=== PATIENT | female | born 1970 | race Caucasian/White ===

== ENCOUNTER → 2016-08-18 | Outpatient (CLI) | payer MEDICAID | LOC: OD 12:02 | PROVIDERS: ATTEND Physician Assistant Surgical | DX: R10.9 Unspecified abdominal pain (principal) | CPT/HCPCS: 74022 ==

== ENCOUNTER 2016-08-21 17:41 | Emergency (ER) | payer MEDICAID ==
[2016-08-21] MEDS ORDERED: PREDNISONE 20 MG TABLET PO ONE (18:48)
[2016-08-21] MEDS ORDERED: FAMOTIDINE 20 MG TABLET PO ONE (18:48)
[2016-08-21] MEDS ORDERED: DIPHENHYDRAMINE HCL 50 MG CAPSULE PO ONE (18:48)
--- NOTE | 2016-08-21 18:49 | ER Document Report ---
ED Skin Rash/Insect Bite/Abscs - General Chief Complaint: Insect Bite Stated Complaint: PAIN/SWELLING LEGS AND FEET Time Seen by Provider: 08/21/16 18:35 Mode of Arrival: Ambulatory Information source: Patient Notes: 46-year-old female presents to ED for pain and swelling to both feet and ankle since she walked through fire ants yesterday and they better all over both feet and ankles. TRAVEL OUTSIDE OF THE [place] IN LAST 30 DAYS: No - HPI Patient complains to provider of: Insect bite Onset: Yesterday Onset/Duration: Gradual, Worse Quality of pain: Achy Severity: Moderate Pain Level: 3 Skin Character: Rash, Swelling, Tenderness Quality of rash: Itchy, Painful Identify cause: Yes - ant bites Exacerbated by: Denies Relieved by: Denies Similar symptoms previously: Yes Recently seen / treated by doctor: No - Related Data Allergies/Adverse Reactions: ciprofloxacin [From Cipro] Allergy (Verified 09/13/14 10:53) ciprofloxacin HCl [From Cipro] Allergy (Verified 09/13/14 10:53) Past Medical History - General Information source: Patient - Social History Smoking Status: Never Smoker Frequency of alcohol use: None Drug Abuse: None Lives with: Family Family History: Arthritis, DM, Hyperlipidemia, Hypertension, Malignancy Patient has suicidal ideation: No Patient has homicidal ideation: No - Past Medical History Cardiac Medical History: Reports: Hx Hypercholesterolemia, Hx Hypertension, Hx Heart Murmur Pulmonary Medical History: Reports: None EENT Medical History: Reports: None Neurological Medical History: Reports: Other - Peripheral neuropathy Endocrine Medical History: Reports: Hx Diabetes Mellitus Type 2 Renal/ Medical History: Reports: Hx Ovarian Cysts Malignancy Medical History: Reports: Hx Cervical Cancer GI Medical History: Reports: Hx Gastroesophageal Reflux Disease, Hx Irritable Bowel, Hx Ulcer, Hx Endoscopy, Other - Bower's esophagitis Musculoskeltal Medical History: Reports Hx Arthritis, Reports Hx Musculoskeletal Deformity - Scoliosis to gentle disc 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, Reports Hx Musculoskeletal Trauma Skin Medical History: Reports None Psychiatric Medical History: Reports: Hx Anxiety, Hx Depression Traumatic Medical History: Reports: None Infectious Medical History: Reports: None Past Surgical History: Reports: Hx Dilation and Curettage, Hx Gynecologic Surgery - Ablation, Rt ovarian cyst removed left removed, coned biopsy for cervical c, Hx Hysterectomy, Hx Tubal Ligation - Immunizations Immunizations up to date: Yes Hx Diphtheria, Pertussis, Tetanus Vaccination: Yes Review of Systems - Review of Systems Constitutional: No symptoms reported EENT: No symptoms reported Cardiovascular: No symptoms reported Respiratory: No symptoms reported Gastrointestinal: No symptoms reported Genitourinary: No symptoms reported Female Genitourinary: No symptoms reported Musculoskeletal: No symptoms reported Skin: Rash, Other - Pain and swelling bilateral feet and ankles from ant bites yesterday Hematologic/Lymphatic: No symptoms reported Neurological/Psychological: No symptoms reported -: Yes All other systems reviewed and negative Physical Exam - Vital signs Vitals: Temp 97.7 F 08/21/16 17:45 Interpretation: Normal - General General appearance: Appears well, Alert - HEENT Head: Normocephalic, Atraumatic Eyes: Normal Pupils: PERRL - Respiratory Respiratory status: No respiratory distress Chest status: Nontender Breath sounds: Normal Chest palpation: Normal - Cardiovascular Rhythm: Regular Heart sounds: Normal auscultation Murmur: No - Abdominal Inspection: Normal Distension: No distension Bowel sounds: Normal Tenderness: Nontender Organomegaly: No organomegaly - Back Back: Normal, Nontender - Extremities General upper extremity: Normal inspection, Nontender, Normal color, Normal ROM , Normal temperature General lower extremity: Edema, Normal color, Normal ROM, Normal temperature, Normal weight bearing. No: Jorge's sign Ankle: Tender, Edema, Other - Multiple ant bites Foot: Tender, Edema, Other - Multiple and bites - Neurological Neuro grossly intact: Yes Cognition: Normal Orientation: AAOx4 Keyser Coma Scale Eye Opening: Spontaneous Katherine Coma Scale Verbal: Oriented Keyser Coma Scale Motor: Obeys Commands Katherine Coma Scale Total: 15 Speech: Normal Motor strength normal: LUE, RUE, LLE, RLE Sensory: Normal - Psychological Associated symptoms: Normal affect, Normal mood - Skin Skin Temperature: Warm Skin Moisture: Dry Skin Color: Normal Course - Vital Signs Vital signs: Temp Pulse Resp BP Pulse Ox 98.0 F 69 18 97/50 L 98 08/21/16 18:59 08/21/16 18:59 08/21/16 17:46 08/21/16 18:59 08/21/16 18:59 Discharge - Discharge Clinical Impression: insect bites to bilateral feet, Bilateral swelling of feet Condition: Stable Disposition: HOME, SELF-CARE Additional Instructions: Insect Bites You have been bitten by an insect. These bites can cause two types of swelling: an initial swelling due to insect saliva or injected poison, and a late reaction due to your body's allergic reaction. This initial local reaction may be uncomfortable but is not dangerous. Often there's an itchy "hive" at the bite location. This is treated with antihistamines, cold compresses, and resting the affected body part. The later reaction often develops about the second day. The entire area becomes very swollen, red, itchy, and tender. This is an allergic reaction. Your body is attacking the leftover insect saliva or venom. This type of allergy is unpleasant, but not dangerous. We treat this swelling with cortisone -type medicine. Sometimes we use antibiotics if we're worried about infection. Antihistamines help with the itch. If you develop a fever, chills, a red streak, or swollen glands in the area of the bite, infection may be starting. Return at once. STEROID MEDICATION: You have been given a medicine of the cortisone/steroid class. This medication is used to control inflammation or allergy. It is usually only given for a short period of time, until the acute process subsides. There are usually no side effects from short-term use of cortisone-like medications. Some persons feel an increased sense of well-being and are not sleepy at bedtime. Long-term use of cortisone medications is best avoided, unless required for a severe condition. If your condition does not remit, or relapses after the course of corticosteroid medication, you should consult your physician. ACID-SUPPRESSING MEDICATION: You have a prescription for medicine which reduces the stomach's secretion of acid. Examples include Zantac, Tagament, and Pepcid. These drugs are often used to allow healing of ulcers or esophagitis. They may be needed to prevent recurrence of ulcers in some patients, or to prevent damage from acid reflux in the esophagus. Take all medication as prescribed, even after the pain is gone. Regular antacids may be added as needed if you have symptoms while taking this medicine. These medications sometimes are prescribed for allergic reactions because they have anti-histaminic effects and relieve the rash and itching of the reaction. There are usually no side effects from this medication. But, in rare cases and particularly in the elderly, serious problems can occur. Contact your doctor if there is fever, rash, hallucinations, confusion, or unusual bruising. Contact your doctor at once if you develop lightheadedness, black or bloody stool, or bloody vomitus. USE OF DIPHENHYDRAMINE: The use of diphenhydramine (Benadryl) has been recommended to control allergic symptoms. The 25 mg strength is available over- the-counter, as well as the elixir. This antihistamine is used for many symptoms. It's useful for itching, watering eyes and nose, allergic swelling, hives, and insect stings. The medication can be repeated four times daily. Age Elixir (12.5 mg/tsp) 25 mg pill 2-3 yr 1/2 tsp 4-8 yr 1 tsp 9-14 yr 2 tsp one tab adult 1-2 tabs Antihistamines may cause drowsiness, especially with the first dose. Do not operate machinery or drive while under the effects of the medication. Do not combine the medication with alcohol, or with any other medication without talking to your doctor. FOLLOW-UP CARE: If you have been referred to a physician for follow-up care, call the physician s office for an appointment as you were instructed or within the next two days. If you experience worsening or a significant change in your symptoms, notify the physician immediately or return to the Emergency Department at any time for re-evaluation. Referrals: SHARON CHRIS DO [Primary Care Provider] - Follow up as needed
[2016-08-21 19:12] VITALS: BP 97/50
== END 2016-08-21 19:12 | disposition home or self-care (01) ==
LOC: ER 17:41
DX: T63.421A Toxic effect of venom of ants, accidental (unintentional), initial encounter (principal); M79.89 Other specified soft tissue disorders; I10 Essential (primary) hypertension; E11.9 Type 2 diabetes mellitus without complications; Z85.41 Personal history of malignant neoplasm of cervix uteri; Z88.1 Allergy status to other antibiotic agents
CPT/HCPCS: 99281; J3490 ×2; J7512

== ENCOUNTER 2016-09-15 12:03 | Emergency (ER) | payer MEDICAID ==
[2016-09-15 12:15] VITALS: BP 103/59
--- NOTE | 2016-09-15 12:27 | ER Document Report ---
HPI - HPI Patient complains to provider of: left ankle injury Onset: Yesterday Onset/Duration: Sudden Quality of pain: Throbbing Severity: Severe Pain Level: 5 Context: Patient states she tripped in her bedroom last night and rolled her left ankle. Patient is able to walk on foot but complains of pain with doing so. States she has had sprains and a fracture to that same ankle in the past. Associated Symptoms: None Exacerbated by: Movement, Walking Relieved by: Remaining still Similar symptoms previously: Yes Recently seen / treated by doctor: No - ROS ROS below otherwise negative: Yes Systems Reviewed and Negative: Yes All other systems reviewed and negative - CONSTITUTIONAL Constitutional: DENIES: Fever - EENT EENT: DENIES: Nasal Drainage-Purulent - NEURO Neurology: DENIES: Headache - CARDIOVASCULAR Cardiovascular: DENIES: Chest pain - RESPIRATORY Respiratory: DENIES: Trouble Breathing - GASTROINTESTINAL Gastrointestinal: DENIES: Abdominal Pain - REPRODUCTIVE Reproductive: DENIES: : - MUSCULOSKELETAL Musculoskeletal: REPORTS: Extremity pain - left ankle - DERM Skin Color: Normal Skin Problems: None Past Medical History - General Information source: Patient - Social History Smoking Status: Current Every Day Smoker Cigarette use (# per day): Yes Frequency of alcohol use: None Drug Abuse: None Lives with: Spouse/Significant other Family History: Arthritis, DM, Hyperlipidemia, Hypertension, Malignancy Patient has suicidal ideation: No Patient has homicidal ideation: No - Past Medical History Cardiac Medical History: Reports: Hx Hypercholesterolemia, Hx Hypertension, Hx Heart Murmur Endocrine Medical History: Reports: Hx Diabetes Mellitus Type 2 Renal/ Medical History: Reports: Hx Ovarian Cysts Malignancy Medical History: Reports: Hx Cervical Cancer GI Medical History: Reports: Hx Gastroesophageal Reflux Disease, Hx Irritable Bowel, Hx Ulcer, Hx Colonoscopy, Hx Endoscopy Musculoskeltal Medical History: Reports Hx Arthritis, Reports Hx Musculoskeletal Deformity - Scoliosis to gentle disc 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, Reports Hx Musculoskeletal Trauma Psychiatric Medical History: Reports: Hx Anxiety, Hx Bipolar Disorder, Hx Depression Past Surgical History: Reports: Hx Dilation and Curettage, Hx Gynecologic Surgery - Ablation, Rt ovarian cyst removed left removed, coned biopsy for cervical c, Hx Hysterectomy, Hx Tubal Ligation - Immunizations Immunizations up to date: Yes Hx Diphtheria, Pertussis, Tetanus Vaccination: Yes Vertical Provider Document - CONSTITUTIONAL Agree With Documented VS: Yes Exam Limitations: No Limitations General Appearance: WD/WN, No Apparent Distress - INFECTION CONTROL TRAVEL OUTSIDE OF THE [place] IN LAST 30 DAYS: No - HEENT HEENT: Atraumatic - RESPIRATORY Respiratory: Breath Sounds Normal, No Respiratory Distress O2 Sat by Pulse Oximetry: 94 - CARDIOVASCULAR Cardiovascular: Regular Rate, Regular Rhythm - GI/ABDOMEN Gastrointestinal: Abdomen Soft, Abdomen Non-Tender - MUSCULOSKELETAL/EXTREMETIES Musculoskeletal/Extremeties: Tender, Edema - mild edema to left lateral ankle, no bruising. N/V and sensation intact - NEURO Level of Consciousness: Awake, Alert, Appropriate - DERM Integumentary: Warm, Dry Course - Re-evaluation Re-evalutation: 09/15/16 13:10 X-rays negative and discussed with patient. - Vital Signs Vital signs: Temp Pulse Resp BP Pulse Ox 97.8 F 78 16 103/59 L 94 09/15/16 12:13 09/15/16 12:13 09/15/16 12:13 09/15/16 12:13 09/15/16 12:13 Procedures - Immobilization Left Ankle Pre-Proc Neuro Vasc Exam: Normal Immobilizer type: Ankle stirrup Performed by: PCT Post-Proc Neuro Vasc Exam: Normal Alignment checked and good: Yes Discharge - Discharge Clinical Impression: Ankle sprain Qualifiers: Encounter type: initial encounter Involved ligament of ankle: other ligament Laterality: left Qualified Code(s): S93.492A - Sprain of other ligament of left ankle, initial encounter Condition: Good Disposition: HOME, SELF-CARE Instructions: Ice Packs ([facility]), Sprained Ankle ([facility]) Additional Instructions: Ice and elevate ankle as much as possible Use crutches for several days to keep weight off ankle Tylenol or Motrin for discomfort Follow-up with your doctor if not better in 1 week Return as needed Prescriptions: Tramadol HCl 50 mg PO QID PRN #15 tablet PRN Reason: Referrals: SHARON CHRIS DO [Primary Care Provider] - Follow up as needed
[2016-09-15] MEDS ORDERED: HYDROCODONE/ACETAMINOPHEN 5-325 MG TABLET PO ONE (12:28)
--- NOTE | 2016-09-15 12:54 | RADIOLOGY REPORT (SQ) ---
EXAM DESCRIPTION: ANKLE LEFT COMPLETE COMPLETED DATE/TIME: 09/15/2016 12:40 pm REASON FOR STUDY: injury COMPARISON: None. NUMBER OF VIEWS: Three views. TECHNIQUE: AP, lateral, and oblique radiographic images acquired of the left ankle. LIMITATIONS: None. FINDINGS: MINERALIZATION: Normal. BONES: No acute fracture or dislocation. No worrisome bone lesions. JOINTS: No effusions. SOFT TISSUES: No soft tissue swelling. No foreign body. OTHER: No other significant finding. IMPRESSION: NEGATIVE STUDY OF THE LEFT ANKLE. NO RADIOGRAPHIC EVIDENCE OF ACUTE INJURY. TECHNICAL DOCUMENTATION: JOB ID: [id number] [employer]- All Rights Reserved
== END 2016-09-15 13:15 | disposition home or self-care (01) ==
LOC: ER 12:03
PROC: 2W3TX1Z Immobilization of Left Foot using Splint (ICD-10-PCS; principal; 2016-09-15)
DX: S93.492A Sprain of other ligament of left ankle, initial encounter (principal); X50.1XXA Overexertion from prolonged static or awkward postures, initial encounter; F17.210 Nicotine dependence, cigarettes, uncomplicated
CPT/HCPCS: 99283; 73610; 29515; L4350

== ENCOUNTER 2016-11-23 11:58 | Emergency (ER) | payer SELFPAY ==
[2016-11-23] MEDS ORDERED: ONDANSETRON 4 MG TAB.RAPDIS PO ONE (12:13)
--- NOTE | 2016-11-23 12:15 | ER Document Report ---
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 She previously had been treated for Bower's esophagus on on her last endoscopy this had reportedly healed. She also gives a history that suggests a problem with constipation. I have greeted and performed a rapid initial assessment of this patient. A comprehensive ED assessment and evaluation of the patient, analysis of test results and completion of the medical decision making process will be conducted by additional ED providers. TRAVEL OUTSIDE OF THE [place] IN LAST 30 DAYS: No - Related Data Allergies/Adverse Reactions: ciprofloxacin [From Cipro] Allergy (Verified 11/23/16 12:03) ciprofloxacin HCl [From Cipro] Allergy (Verified 11/23/16 12:03) Past Medical History - Past Medical History Cardiac Medical History: Reports: Hx Hypercholesterolemia, Hx Hypertension, Hx Heart Murmur Endocrine Medical History: Reports: Hx Diabetes Mellitus Type 1, Hx Diabetes Mellitus Type 2 Renal/ Medical History: Reports: Hx Ovarian Cysts. 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, Reports Hx Musculoskeletal Trauma Psychiatric Medical History: Reports: Hx Anxiety, Hx Bipolar Disorder, Hx Depression Past Surgical History: Reports: Hx Dilation and Curettage, Hx Gynecologic Surgery - Ablation, Rt ovarian cyst removed left removed, coned biopsy for cervical c, Hx Hysterectomy, Hx Tubal Ligation - Immunizations Immunizations up to date: Yes Hx Diphtheria, Pertussis, Tetanus Vaccination: Yes Physical Exam - Vital signs Vitals: Temp Pulse Resp BP Pulse Ox 98.7 F 71 16 141/86 H 96 11/23/16 12:01 11/23/16 12:01 11/23/16 12:01 11/23/16 12:01 11/23/16 12:01 Course - Vital Signs Vital signs: Temp Pulse Resp BP Pulse Ox 98.7 F 71 16 141/86 H 96 11/23/16 12:01 11/23/16 12:01 11/23/16 12:01 11/23/16 12:01 11/23/16 12:01
--- NOTE | 2016-11-23 13:08 | RADIOLOGY REPORT (SQ) ---
EXAM DESCRIPTION: ACUTE ABDOMEN SERIES COMPLETED DATE/TIME: 11/23/2016 12:55 pm REASON FOR STUDY: N,V abd pain COMPARISON: None. NUMBER OF VIEWS: Three views. TECHNIQUE: Frontal chest, supine abdomen and upright/decubitus abdomen radiographic images acquired. LIMITATIONS: None. FINDINGS: CHEST: Lungs clear of infiltrates. FREE AIR: None. No abnormal gas collections. BOWEL GAS PATTERN: Nonobstructive pattern. No dilated loops or air fluid levels. CALCIFICATIONS: No suspicious calcifications. HARDWARE: None in the abdomen. SOFT TISSUES: No gross mass or suggestion of organomegaly. BONES: No acute fracture. No worrisome bone lesions. OTHER: No other significant finding. IMPRESSION: NO RADIOGRAPHIC EVIDENCE FOR ACUTE ABDOMINAL DISEASE. TECHNICAL DOCUMENTATION: JOB ID: [id number] [employer]- All Rights Reserved
[2016-11-23] MEDS ORDERED: ASPIRIN 81 MG TABLET, CHEWABLE PO ONE (13:18)
--- NOTE | 2016-11-23 13:28 | ER Document Report ---
ED General - General Chief Complaint: Abdominal Pain Stated Complaint: ABDOMINAL PAIN Time Seen by Provider: 11/23/16 12:07 Mode of Arrival: Ambulatory Information source: Patient Notes: Patient reports a four-day history of nausea and vomiting. Patient states she vomited 5 times today. Patient states that around 6 this morning she developed some chest discomfort and epigastric abdominal pain. Patient also reports patient denies any blood in her vomit or stool.she had some difficulty breathing this morning. Patient complains of hot and cold chills. Patient denies any fever, cough, or urinary symptoms. Patient's daughter was recently sick with vomiting symptoms last week. TRAVEL OUTSIDE OF THE [place] IN LAST 30 DAYS: No - HPI Onset: Other - Vomiting 4 days. Onset/Duration: Gradual Quality of pain: Burning Pain Level: 4 Associated symptoms: Chest pain, Chills, Nausea, Vomiting, Shortness of breath. denies: Nonproductive cough, Productive cough, Diarrhea, Fever, Sore throat, Sweating Exacerbated by: Denies Relieved by: Denies Similar symptoms previously: No Recently seen / treated by doctor: No - Related Data Allergies/Adverse Reactions: ciprofloxacin [From Cipro] Allergy (Verified 11/23/16 13:26) ciprofloxacin HCl [From Cipro] Allergy (Verified 11/23/16 13:26) Past Medical History - General Information source: Patient - Social History Smoking Status: Current Every Day Smoker Chew tobacco use (# tins/day): - 15 Frequency of alcohol use: None Drug Abuse: None Occupation: None Lives with: Family Family History: Arthritis, DM, Hyperlipidemia, Hypertension, Malignancy - Past Medical History Cardiac Medical History: Reports: Hx Hypercholesterolemia, Hx Hypertension, Hx Heart Murmur Endocrine Medical History: Reports: Hx Diabetes Mellitus Type 1, Hx Diabetes Mellitus Type 2 Renal/ Medical History: Reports: Hx Ovarian Cysts. 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 denies: Fever, Recent illness EENT: No symptoms reported Cardiovascular: Chest pain Respiratory: Short of breath - This morning, now resolved. denies: Cough Gastrointestinal: Abdominal pain, Nausea, Vomiting, Poor appetite. denies: Diarrhea, Constipation Genitourinary: No symptoms reported. denies: Dysuria, Flank pain Female Genitourinary: No symptoms reported Musculoskeletal: No symptoms reported. denies: Back pain Skin: No symptoms reported Hematologic/Lymphatic: No symptoms reported Neurological/Psychological: No symptoms reported Physical Exam - Vital signs Vitals: Temp Pulse Resp BP Pulse Ox 98.7 F 71 16 141/86 H 96 11/23/16 12:01 11/23/16 12:01 11/23/16 12:01 11/23/16 12:01 11/23/16 12:01 - General General appearance: Appears well, Alert In distress: None - HEENT Head: Normocephalic, Atraumatic Eyes: Normal Ears: Normal External canal: Normal Tympanic membrane: Normal Nasal: Normal Mouth/Lips: Normal Mucous membranes: Normal Pharynx: Normal Neck: Normal, Supple. No: Lymphadenopathy - Respiratory Respiratory status: No respiratory distress Chest status: Nontender Breath sounds: Normal. No: Rales, Rhonchi, Stridor, Wheezing Chest palpation: Normal - Cardiovascular Rhythm: Regular Heart sounds: S1 appreciated, S2 appreciated - Abdominal Inspection: Normal Distension: No distension Bowel sounds: Normal Tenderness: Tender - epig, right lower abd tenderness - Back Back: Normal, Nontender. No: CVA tenderness - Extremities General upper extremity: Normal inspection, Normal ROM General lower extremity: Normal inspection, Normal ROM - Neurological Neuro grossly intact: Yes Cognition: Normal [place] Coma Scale Eye Opening: Spontaneous [place] Coma Scale Verbal: Oriented [place] Coma Scale Motor: Obeys Commands [place] Coma Scale Total: 15 - Psychological Associated symptoms: Normal affect, Normal mood - Skin Skin Temperature: Warm Skin Moisture: Dry Skin Color: Normal Course - Re-evaluation Re-evalutation: 11/23/16 17:00 Patient states that GI cocktail resolved her chest pain. Patient states that initially it resolved her abdominal pain but her abdominal pain started to come back. Patient's abdomen soft, no guarding. Patient has already been to ultrasound and is awaiting results. Patient with mild epigastric tenderness at this time. Consulted with Dr. Carter regarding patient presentation, exam and diagnostic test results. EKG reviewed. Agrees with plan of care 11/23/16 18:30 Repeat EKG reviewed per Dr. Carter. patient presently without any chest pain or dyspnea symptoms. Abdomen is soft without guarding. Patient has not vomited during ER stay. Discussed worsening signs or symptoms that patient should return immediately for. Patient verbalized understanding and agrees with plan of care. The patient has atypical chest pain as the patient's chest pain is not suggestive of pulmonary embolus, cardiac ischemia, aortic dissection , or other serious etiology. Given the extremely low risk of these diagnoses for the test in evaluation for these possibilities does not appear to be indicated at this time. Patient has been instructed to return if the symptoms worsen or change in any way. Patient presents with abdominal pain without signs of peritonitis or other life-threatening or serious etiology. Patient appears stable for discharge and has been instructed to return immediately if the symptoms worsen in any way, or in 8-12 hours if not improved for reevaluation. The patient has been instructed to return if the symptoms worsen or change in any way. - Vital Signs Vital signs: Temp Pulse Resp BP Pulse Ox 98.7 F 71 15 134/73 H 100 11/23/16 12:01 11/23/16 12:01 11/23/16 18:21 11/23/16 18:21 11/23/16 18:21 - Laboratory Result Diagrams: 11/23/16 13:30 11/23/16 13:30 Laboratory results interpreted by me: 11/23/16 11/23/16 11/23/16 13:21 13:30 13:30 Seg Neutrophils % 81.0 H Glucose 131 H Direct Bilirubin 0.5 H Creatine Kinase 27 L Urine Ketones 80 H Urine Blood SMALL H Urine Bilirubin MODERATE H Labs- Entire Visit 11/23/16 11/23/16 11/23/16 13:21 13:30 13:30 WBC 7.6 RBC 5.07 Hgb 15.5 Hct 44.3 MCV 87 MCH 30.5 MCHC 34.9 RDW 13.5 Plt Count 189 Seg Neutrophils % 81.0 H Lymphocytes % 14.7 Monocytes % 3.4 Eosinophils % 0.3 Basophils % 0.6 Absolute Neutrophils 6.2 Absolute Lymphocytes 1.1 Absolute Monocytes 0.3 Absolute Eosinophils 0.0 Absolute Basophils 0.0 Sodium 141.5 Potassium 3.9 Chloride 106 Carbon Dioxide 23 Anion Gap 13 BUN 13 Creatinine 0.97 Est GFR ( Amer) > 60 Est GFR (Non-Af Amer) > 60 Glucose 131 H Calcium 9.6 Total Bilirubin 0.9 Direct Bilirubin 0.5 H Indirect Bilirubin Not Reportable Neonat Total Bilirubin Not Reportable AST 18 ALT 32 Alkaline Phosphatase 97 Creatine Kinase 27 L CK-MB (CK-2) Troponin I Total Protein 7.8 Albumin 4.4 Lipase 83.7 Urine Color YELLOW Urine Appearance CLEAR Urine pH 5.0 Ur Specific [place] 1.032 Urine Protein NEGATIVE Urine Glucose (UA) NEGATIVE Urine Ketones 80 H Urine Blood SMALL H Urine Nitrite NEGATIVE Urine Bilirubin MODERATE H Urine Urobilinogen NEGATIVE Ur Leukocyte Esterase NEGATIVE Urine WBC (Auto) 1 Urine RBC (Auto) 4 Squamous Epi Cells Auto 1 Urine Mucus (Auto) RARE Urine Ascorbic Acid NEGATIVE 11/23/16 11/23/16 13:30 15:07 WBC RBC Hgb Hct MCV MCH MCHC RDW Plt Count Seg Neutrophils % Lymphocytes % Monocytes % Eosinophils % Basophils % Absolute Neutrophils Absolute Lymphocytes Absolute Monocytes Absolute Eosinophils Absolute Basophils Sodium Potassium Chloride Carbon Dioxide Anion Gap BUN Creatinine Est GFR ( Amer) Est GFR (Non-Af Amer) Glucose Calcium Total Bilirubin Direct Bilirubin Indirect Bilirubin Neonat Total Bilirubin AST ALT Alkaline Phosphatase Creatine Kinase CK-MB (CK-2) 0.45 Troponin I < 0.012 < 0.012 Total Protein Albumin Lipase Urine Color Urine Appearance Urine pH Ur Specific [place] Urine Protein Urine Glucose (UA) Urine Ketones Urine Blood Urine Nitrite Urine Bilirubin Urine Urobilinogen Ur Leukocyte Esterase Urine WBC (Auto) Urine RBC (Auto) Squamous Epi Cells Auto Urine Mucus (Auto) Urine Ascorbic Acid 11/23/16 18:57 - Diagnostic Test Radiology reviewed: Reports reviewed Discharge - Discharge Clinical Impression: Chest pain Qualifiers: Chest pain type: unspecified Qualified Code(s): R07.9 - Chest pain, unspecified HTN (hypertension) Qualifiers: Hypertension type: unspecified Qualified Code(s): I10 - Essential (primary) hypertension Nausea & vomiting Qualifiers: Vomiting type: unspecified Vomiting Intractability: non-intractable Qualified Code(s): R11.2 - Nausea with vomiting, unspecified Abdominal pain Qualifiers: Abdominal location: unspecified location Qualified Code(s): R10.9 - Unspecified abdominal pain Condition: Stable Disposition: HOME, SELF-CARE Instructions: Abdominal Pain ([facility]), Antinausea Medication ([facility]), Vomiting ([facility]) , Intravenous (IV) Fluids ([facility]), Chest Pain of Unclear Cause ([facility]) Additional Instructions: Return immediately for any new or worsening symptoms Followup with your primary care provider, call tomorrow to make a followup appointment Follow-up with your primary doctor tomorrow for recheck Follow-up with a hospital television rental clerk for further evaluation. Call tomorrow for an appointment Prescriptions: Omeprazole Magnesium [Prilosec Otc] 20 mg PO DAILY #15 tablet. Ondansetron HCl [Zofran 4 mg Tablet] 1 - 2 tab PO Q6 PRN #15 tablet PRN Reason: Sucralfate [Carafate 1 gm Tablet] 1 gm PO ACHS #40 tablet Forms: Elevated Blood Pressure Referrals: SHARON CHRIS DO [Primary Care Provider] - Follow up tomorrow ELISSA VIDAL MD [ACTIVE STAFF] - Follow up tomorrow
[2016-11-23] MEDS ORDERED: MAG HYDROX/AL HYDROX/SIMETH SUSP 30 ML UDCUP PO ONE (13:37)
[2016-11-23] MEDS ORDERED: LIDOCAINE 2% VISCOUS SOLN 20 ML UDCUP PO ONE (13:37)
[2016-11-23 13:46] LABS: ABSOLUTE LYMPHOCYTES (AUTO) 1.1 10^3/uL (0.5-4.7); ABSOLUTE MONOCYTES (AUTO) 0.3 10^3/uL (0.1-1.4); ABSOLUTE NEUT (AUTO) 6.2 10^3/uL (1.7-8.2); BASOPHILS % (AUTO) 0.6 % (0-2); EOSINOPHILS % (AUTO) 0.3 % (0-6); HEMATOCRIT 44.3 % (36.0-47.0); HEMOGLOBIN 15.5 g/dL (12.0-15.5); HGB HCT DIFFERENCE 2.2; LYMPHOCYTES % (AUTO) 14.7 % (13-45); MEAN CORPUSCULAR HEMOGLOBIN 30.5 pg (27.0-33.4); MEAN CORPUSCULAR HGB CONC 34.9 g/dL (32.0-36.0); MEAN CORPUSCULAR VOLUME 87 fl (80-97); MONOCYTES % (AUTO) 3.4 % (3-13); RED BLOOD COUNT 5.07 10^6/uL (3.72-5.28); RED CELL DISTRIBUTION WIDTH 13.5 % (11.5-14.0); WHITE BLOOD COUNT 7.6 10^3/uL (4.0-10.5)
[2016-11-23 13:50] LABS: APPEARANCE,URINE CLEAR; BILIRUBIN,URINE MODERATE (NEGATIVE); GLUCOSE, URINE NEGATIVE (NEGATIVE); KETONES,URINE 80 mg/dL (NEGATIVE); LEUKOCYTE ESTERASE,URINE NEGATIVE (NEGATIVE); NITRITE,URINE NEGATIVE (NEGATIVE); PROTEIN,URINE NEGATIVE (NEGATIVE); URINE SPECIFIC GRAVITY 1.032; UROBILINOGEN,URINE NEGATIVE mg/dL (<2.0)
[2016-11-23] MEDS ORDERED: NORMAL SALINE 1000 ML 1,000 ML IV ONE (13:52)
[2016-11-23 14:04] LABS: ALANINE AMINOTRANSFERASE 32 U/L (9-52); ALBUMIN 4.4 g/dL (3.5-5.0); ALKALINE PHOSPHATASE 97 U/L (38-126); ANION GAP 13 (5-19); ASPARTATE AMINO TRANSFERASE 18 U/L (14-36); BILIRUBIN,DIRECT 0.5 mg/dL (0.0-0.4); BILIRUBIN,TOTAL 0.9 mg/dL (0.2-1.3); BLOOD UREA NITROGEN 13 mg/dL (7-20); CALCIUM 9.6 mg/dL (8.4-10.2); CARBON DIOXIDE 23 mmol/L (22-30); CHLORIDE 106 mmol/L (98-107); CREATINE KINASE 27 U/L (30-135); CREATININE RESULT 0.97 mg/dL (0.52-1.25); GLUCOSE 131 mg/dL (75-110); LIPASE 83.7 U/L (23-300); POTASSIUM 3.9 mmol/L (3.6-5.0); SODIUM 141.5 mmol/L (137-145); TOTAL PROTEIN 7.8 g/dL (6.3-8.2)
[2016-11-23 14:16] LABS: CREATINE KINASE MB 0.45 ng/mL (<4.55)
[2016-11-23 14:17] LABS: TROPONIN I < 0.012 ng/mL
[2016-11-23] MEDS ORDERED: MORPHINE SULFATE 10 MG/ML INJ IV ONE (16:53)
--- NOTE | 2016-11-23 16:56 | RADIOLOGY REPORT (SQ) ---
EXAM DESCRIPTION: U/S ABDOMEN LIMITED W/O DOP COMPLETED DATE/TIME: 11/23/2016 4:38 pm REASON FOR STUDY: upper abd pain, n/v COMPARISON: None. TECHNIQUE: Dynamic and static grayscale images acquired of the abdomen and recorded on PACS. Additio nal selected color Doppler and spectral images recorded. LIMITATIONS: None. FINDINGS: PANCREAS: No masses. Visualized pancreatic duct normal caliber. LIVER: No masses. Echotexture normal. LIVER VASCULATURE: Normal directional flow of the main portal vein and hepatic veins. GALLBLADDER: No stones. Normal wall thickness. No pericholecystic fluid. ULTRASOUND-DETECTED MITCHELL'S SIGN: Negative. INTRAHEPATIC DUCTS AND COMMON DUCT: CBD and intrahepatic ducts normal caliber. No filling defects. INFERIOR VENA CAVA: Normal flow. AORTA: No aneurysm. RIGHT KIDNEY: Normal size. Normal echogenicity. No solid or suspicious masses. No hydronephrosis. No calcifications. PERITONEAL AND RIGHT PLEURAL SPACE: No ascites or effusions. OTHER: No other significant findings. IMPRESSION: NORMAL RIGHT UPPER QUADRANT ULTRASOUND. TECHNICAL DOCUMENTATION: JOB ID: [id number] [employer]- All Rights Reserved
[2016-11-23 18:49] VITALS: BP 134/73
--- NOTE | 2016-11-23 19:20 | EKG REPORT ---
SEVERITY:- ABNORMAL ECG - SINUS RHYTHM ABNRM R PROG, CONSIDER ASMI OR LEAD PLACEMENT : Confirmed by: Roman Huang MD 23-Nov-2016 19:19:19
--- NOTE | 2016-11-23 19:21 | EKG REPORT ---
SEVERITY:- ABNORMAL ECG - SINUS RHYTHM ABNRM R PROG, CONSIDER ASMI OR LEAD PLACEMENT BORDERLINE T ABNORMALITIES, INFERIOR LEADS : Confirmed by: Roman Huang MD 23-Nov-2016 19:19:40
== END 2016-11-23 18:49 | disposition home or self-care (01) ==
LOC: ER 11:58
DX: R07.9 Chest pain, unspecified (principal); R11.2 Nausea with vomiting, unspecified; I10 Essential (primary) hypertension; R10.13 Epigastric pain; F17.200 Nicotine dependence, unspecified, uncomplicated
CPT/HCPCS: 93005; 99285; 96374; 36415; 82553; 82550; 83690; 85025; 80053; 81001; 84484; 74022; 76705; 93010; S0119; J3490; J2270; J7030

== ENCOUNTER 2017-01-27 15:29 | Emergency (ER) | payer SELFPAY ==
[2017-01-27 15:43] VITALS: BP 121/74
--- NOTE | 2017-01-27 16:22 | ER Document Report ---
ED General - General Chief Complaint: Breathing Difficulty Stated Complaint: DIFFICULTY BREATHING, COUGH, EAR PAIN Time Seen by Provider: 01/27/17 16:17 Mode of Arrival: Ambulatory Information source: Patient Notes: Patient states that she has had cough cold and congestion for approximately 2 weeks. She has had some vomiting from the mucus drainage. No diarrhea. No rashes. No known fevers. She is a smoker. She states she does have insulin- dependent diabetes and is been checking her blood sugars approximately 140 this morning. No problems with urination. She states she has generalized body aches. They do radiate throughout her body. They are worse with movement and better with rest. They are constant and moderate. TRAVEL OUTSIDE OF THE [place] IN LAST 30 DAYS: No - Related Data Allergies/Adverse Reactions: ciprofloxacin [From Cipro] Allergy (Verified 01/27/17 15:39) ciprofloxacin HCl [From Cipro] Allergy (Verified 01/27/17 15:39) Past Medical History - General Information source: Patient - Social History Smoking Status: Current Every Day Smoker Chew tobacco use (# tins/day): No Frequency of alcohol use: None Drug Abuse: None Family History: Arthritis, DM, Hyperlipidemia, Hypertension, Malignancy Patient has suicidal ideation: No - Past Medical History Cardiac Medical History: Reports: Hx Hypercholesterolemia, Hx Hypertension, Hx Heart Murmur Endocrine Medical History: Reports: Hx Diabetes Mellitus Type 1, Hx Diabetes Mellitus Type 2 Renal/ Medical History: Reports: Hx Ovarian Cysts. 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 denies: Diarrhea Physical Exam - Vital signs Vitals: Temp Pulse Resp BP Pulse Ox 99.4 F 77 16 121/74 98 01/27/17 15:42 01/27/17 15:42 01/27/17 15:42 01/27/17 15:42 01/27/17 15:42 Interpretation: Normal - General General appearance: Appears well, Alert - HEENT Head: Normocephalic, Atraumatic Eyes: Normal Pupils: PERRL Ears: Normal External canal: Normal Tympanic membrane: Serous effusion Nasal: Swelling, Clear rhinorrhea Mouth/Lips: Normal Mucous membranes: Moist Pharynx: Erythema. No: Exudate Neck: Normal - Respiratory Respiratory status: No respiratory distress Chest status: Nontender Breath sounds: Normal Chest palpation: Normal - Cardiovascular Rhythm: Regular Heart sounds: Normal auscultation Murmur: No - Abdominal Inspection: Normal Distension: No distension Bowel sounds: Normal Tenderness: Nontender Organomegaly: No organomegaly - Back Back: Normal, Nontender - Extremities General upper extremity: Normal inspection, Nontender, Normal color, Normal ROM , Normal temperature General lower extremity: Normal inspection, Nontender, Normal color, Normal ROM , Normal temperature, Normal weight bearing. No: Jorge's sign - Neurological Neuro grossly intact: Yes Cognition: Normal Orientation: AAOx4 [place] Coma Scale Eye Opening: Spontaneous [place] Coma Scale Verbal: Oriented [place] Coma Scale Motor: Obeys Commands [place] Coma Scale Total: 15 Speech: Normal Motor strength normal: LUE, RUE, LLE, RLE Sensory: Normal - Psychological Associated symptoms: Normal affect, Normal mood - Skin Skin Temperature: Warm Skin Moisture: Dry Skin Color: Normal Course - Vital Signs Vital signs: Temp Pulse Resp BP Pulse Ox 99.4 F 77 16 121/74 98 01/27/17 15:42 01/27/17 15:42 01/27/17 16:09 01/27/17 15:42 01/27/17 15:42 Discharge - Discharge Clinical Impression: URI (upper respiratory infection) Qualifiers: Pharyngitis/tonsillitis etiology: unspecified etiology Condition: Stable Disposition: HOME, SELF-CARE Instructions: Upper Respiratory Illness ([facility]) Additional Instructions: Please follow-up with your primary care physician as soon as possible Prescriptions: Benzonatate [Tessalon Perles 100 mg Capsule] 200 mg PO Q8HP PRN #40 capsule PRN Reason: Hydrocodone/Acetaminophen [[place] 5-325 mg Tablet] 1 tab PO Q6 PRN #12 tablet PRN Reason: Sulfamethoxazole/Trimethoprim [Bactrim Ds Tablet] 1 each PO BID #14 tablet Referrals: FELIPE SANCHEZ MD [COMMUNITY BASED STAFF] - Follow up in 1 week
== END 2017-01-27 16:34 | disposition home or self-care (01) ==
LOC: ER 15:29
DX: J06.9 Acute upper respiratory infection, unspecified (principal); R06.02 Shortness of breath; R05 Cough; R09.81 Nasal congestion; R11.10 Vomiting, unspecified; M79.1 Myalgia; F17.200 Nicotine dependence, unspecified, uncomplicated
CPT/HCPCS: 99283

== ENCOUNTER 2017-02-01 12:13 | Emergency (ER) | payer SELFPAY ==
[2017-02-01] MEDS ORDERED: NORMAL SALINE 1000 ML 1,000 ML IV ONE (12:45)
--- NOTE | 2017-02-01 12:46 | ER Document Report ---
ED Medical Screen (RME) - General Chief Complaint: Abdominal Pain Stated Complaint: FLU LIKE SYMPTOMS Time Seen by Provider: 02/01/17 12:44 Notes: Patient was seen in the emergency department last week for URI symptoms and ear pain. She was prescribed Bactrim. She states the ear pain is no better and she now has abdominal pain and vomiting. TRAVEL OUTSIDE OF THE [place] IN LAST 30 DAYS: No - Related Data Allergies/Adverse Reactions: ciprofloxacin [From Cipro] Allergy (Verified 01/27/17 15:39) ciprofloxacin HCl [From Cipro] Allergy (Verified 01/27/17 15:39) Past Medical History - Social History Chew tobacco use (# tins/day): - 30 Frequency of alcohol use: None Drug Abuse: None - Past Medical History Cardiac Medical History: Reports: Hx Hypercholesterolemia, Hx Hypertension, Hx Heart Murmur Endocrine Medical History: Reports: Hx Diabetes Mellitus Type 1, Hx Diabetes Mellitus Type 2 Renal/ Medical History: Reports: Hx Ovarian Cysts. 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, Reports Hx Musculoskeletal Trauma Psychiatric Medical History: Reports: Hx Anxiety, Hx Bipolar Disorder, Hx Depression Past Surgical History: Reports: Hx Dilation and Curettage, Hx Gynecologic Surgery - Ablation, Rt ovarian cyst removed left removed, coned biopsy for cervical c, Hx Hysterectomy, Hx Tubal Ligation - Immunizations Immunizations up to date: Yes Hx Diphtheria, Pertussis, Tetanus Vaccination: Yes Physical Exam - Vital signs Vitals: Temp Pulse Resp BP Pulse Ox 99.2 F 100 15 114/80 97 02/01/17 12:30 02/01/17 12:30 02/01/17 12:30 02/01/17 12:30 02/01/17 12:30 Course - Vital Signs Vital signs: Temp Pulse Resp BP Pulse Ox 99.2 F 100 15 114/80 97 02/01/17 12:30 02/01/17 12:30 02/01/17 12:30 02/01/17 12:30 02/01/17 12:30
[2017-02-01 14:04] LABS: ABSOLUTE BASOPHILS # (AUTO) 0.1 10^3/uL (0.0-0.2); ABSOLUTE LYMPHOCYTES (AUTO) 1.9 10^3/uL (0.5-4.7); ABSOLUTE MONOCYTES (AUTO) 0.5 10^3/uL (0.1-1.4); ABSOLUTE NEUT (AUTO) 7.9 10^3/uL (1.7-8.2); BASOPHILS % (AUTO) 1.1 % (0-2); EOSINOPHILS % (AUTO) 0.3 % (0-6); HEMATOCRIT 48.4 % (36.0-47.0); HEMOGLOBIN 16.7 g/dL (12.0-15.5); HGB HCT DIFFERENCE 1.7; LYMPHOCYTES % (AUTO) 18.1 % (13-45); MEAN CORPUSCULAR HEMOGLOBIN 30.3 pg (27.0-33.4); MEAN CORPUSCULAR HGB CONC 34.5 g/dL (32.0-36.0); MEAN CORPUSCULAR VOLUME 88 fl (80-97); MONOCYTES % (AUTO) 4.4 % (3-13); RED BLOOD COUNT 5.51 10^6/uL (3.72-5.28); RED CELL DISTRIBUTION WIDTH 14.5 % (11.5-14.0); SEGMENTED NEUTROPHILS % (AUTO) 76.1 % (42-78); WHITE BLOOD COUNT 10.4 10^3/uL (4.0-10.5)
[2017-02-01 14:11] LABS: APPEARANCE,URINE SLIGHTLY-CLOUDY; BILIRUBIN,URINE NEGATIVE (NEGATIVE); GLUCOSE, URINE NEGATIVE (NEGATIVE); KETONES,URINE 20 mg/dL (NEGATIVE); LEUKOCYTE ESTERASE,URINE NEGATIVE (NEGATIVE); NITRITE,URINE NEGATIVE (NEGATIVE); PROTEIN,URINE 30 mg/dL (NEGATIVE); URINE SPECIFIC GRAVITY 1.027
[2017-02-01 14:26] LABS: ALANINE AMINOTRANSFERASE 26 U/L (9-52); ALBUMIN 4.9 g/dL (3.5-5.0); ALKALINE PHOSPHATASE 83 U/L (38-126); ASPARTATE AMINO TRANSFERASE 15 U/L (14-36); BILIRUBIN,DIRECT 0.5 mg/dL (0.0-0.4); BILIRUBIN,TOTAL 0.9 mg/dL (0.2-1.3); BLOOD UREA NITROGEN 15 mg/dL (7-20); CALCIUM 9.9 mg/dL (8.4-10.2); CHLORIDE 98 mmol/L (98-107); CREATININE RESULT 1.06 mg/dL (0.52-1.25); GLUCOSE 130 mg/dL (75-110); POTASSIUM 4.3 mmol/L (3.6-5.0)
[2017-02-01 14:34] LABS: ANION GAP 18 (5-19); CARBON DIOXIDE 25 mmol/L (22-30); SODIUM 140.6 mmol/L (137-145)
--- NOTE | 2017-02-01 14:43 | ER Document Report ---
ED General - General Mode of Arrival: Ambulatory Information source: Patient TRAVEL OUTSIDE OF THE [place] IN LAST 30 DAYS: No <HOPE SIMMONS - Last Filed: 02/01/17 14:50> <ZAID CHANDLER - Last Filed: 02/01/17 17:27> - General Chief Complaint: Abdominal Pain Stated Complaint: FLU LIKE SYMPTOMS Time Seen by Provider: 02/01/17 12:44 Notes: Patient is a 46 year old female that presents to the emergency department today with complaints of multiple generalized complaints including nausea/vomiting, chest pain, abdominal pain, cough, and ear pain. Patient was seen here about a week ago for the respiratory symptoms mentioned above and sent home on bactrim. Patient states that her sputum has changed to more of a clear color and she is producing much less now since being on the antibiotic. Patient states "I think my gall bladder needs to come out because I had a test that showed it was not functioning right". (HOPE SIMMONS) - Related Data Allergies/Adverse Reactions: ciprofloxacin [From Cipro] Allergy (Verified 01/27/17 15:39) ciprofloxacin HCl [From Cipro] Allergy (Verified 01/27/17 15:39) Past Medical History - General Information source: Patient, FORMERLY [facility], 1928–1983 Records - Social History Smoking Status: Current Every Day Smoker Cigarette use (# per day): Yes Frequency of alcohol use: None Drug Abuse: None Lives with: Family Family History: Reviewed & Not Pertinent, Arthritis, DM, Hyperlipidemia, Hypertension, Malignancy Patient has suicidal ideation: No Patient has homicidal ideation: No - Past Medical History Cardiac Medical History: Reports: Hx Hypercholesterolemia, Hx Hypertension, Hx Heart Murmur Endocrine Medical History: Reports: Hx Diabetes Mellitus Type 2 Renal/ Medical History: Reports: Hx Ovarian Cysts Malignancy Medical History: Reports: Hx Cervical Cancer GI Medical History: Reports: Hx Gastroesophageal Reflux Disease, Hx Irritable Bowel, Hx Ulcer, Hx Colonoscopy, Hx Endoscopy Musculoskeltal Medical History: Reports Hx Arthritis, Reports Hx Musculoskeletal Deformity - Scoliosis to gentle disc 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 <ZAID CHANDLER - Last Filed: 02/01/17 17:27> Review of Systems - Review of Systems Constitutional: No symptoms reported EENT: See HPI, Ear pain Cardiovascular: See HPI, Chest pain Respiratory: See HPI, Cough, Wheezing Gastrointestinal: See HPI, Abdominal pain, Nausea, Vomiting Genitourinary: No symptoms reported Female Genitourinary: No symptoms reported Musculoskeletal: No symptoms reported Skin: No symptoms reported Hematologic/Lymphatic: No symptoms reported Neurological/Psychological: No symptoms reported -: Yes All other systems reviewed and negative <HOPE SIMMONS - Last Filed: 02/01/17 14:50> Physical Exam - Respiratory Respiratory status: No respiratory distress Chest status: Tender - Left anterior lateral chest wall is tender to palpate., Pain on movement Breath sounds: Nonproductive cough, Rhonchi, Wheezing - Abdominal Inspection: Obese Bowel sounds: Normal Tenderness: Tender - Some tenderness in the right upper quadrant and epigastric region. <ZAID CHANDLER - Last Filed: 02/01/17 17:27> - Vital signs Vitals: Temp Pulse Resp BP Pulse Ox 99.2 F 100 15 114/80 97 02/01/17 12:30 02/01/17 12:30 02/01/17 12:30 02/01/17 12:30 02/01/17 12:30 - Notes Notes: Physical Exam: General: Alert, appears well, smells of tobacco. HEENT: Normocephalic. Atraumatic. PERRL. Extraocular movements intact. Oropharynx clear. TMs are clear bilaterally. No posterior oropharynx erythema. Clear rhinorrhea. Neck: Supple. Non-tender. Respiratory: No respiratory distress. Rhonchi and wheezing with forced cough bilaterally. Cardiovascular: Regular rate and rhythm. Abdominal: Obese. Non-tender. No distension. Normal Bowel Sounds. Back: Non-tender. No deformity or step off. Extremities: Moves all four extremities. Upper extremities: Normal inspection. Normal ROM. Lower extremities: Normal inspection. No edema. Normal ROM. Neurological: Normal cognition. AAOx4. Normal speech. Psychological: Normal affect. Normal Mood. Skin: Warm. Dry. Normal color. (HOPE SIMMONS) Course - Laboratory Result Diagrams: 02/01/17 13:35 02/01/17 13:35 <HOPE SIMMONS - Last Filed: 02/01/17 14:50> - Laboratory Result Diagrams: 02/01/17 13:35 02/01/17 13:35 <ZAID CHANDLER - Last Filed: 02/01/17 17:27> - Re-evaluation Re-evalutation: 02/01/17 17:12 Wheezes and rhonchi are almost completely cleared after the breathing treatments. She still has pain in her ribs when she takes a deep breath and cough. 02/01/17 17:25 At discharge the patient is trying to get pain medication prescription from me. I informed her I knew she was on chronic pain management, she was receiving and taking 10 mg of oxycodone 4 times daily. I also informed her that generally a contract is required for this kind of pain management and by asking me for a narcotic prescription she was violating her pain contract. This already occurred on her visit here 5 days ago. I asked her that she really want to ask for pain medication violate her pain management contract, so I can inform her prescribing physician and she can be cut off from all pain medication prescriptions. She changed her mind about asking for narcotics from me. (ZAID CHANDLER) - Vital Signs Vital signs: Temp Pulse Resp BP Pulse Ox 99.2 F 100 15 114/80 97 02/01/17 12:30 02/01/17 12:30 02/01/17 12:30 02/01/17 12:30 02/01/17 12:30 - Laboratory Laboratory results interpreted by me: 02/01/17 02/01/17 02/01/17 13:35 13:35 13:50 RBC 5.51 H Hgb 16.7 H Hct 48.4 H RDW 14.5 H Est GFR (Non-Af Amer) 56 L Glucose 130 H Direct Bilirubin 0.5 H Urine Protein 30 H Urine Ketones 20 H Urine Blood SMALL H Urine Urobilinogen 2.0 H Discharge <HOPE SIMMONS - Last Filed: 02/01/17 14:50> <ZAID CHANDLER - Last Filed: 02/01/17 17:27> - Discharge Clinical Impression: Acute exacerbation of chronic obstructive pulmonary disease (COPD), Drug- seeking behavior URI (upper respiratory infection) Qualifiers: URI type: unspecified viral URI Qualified Code(s): J06.9 - Acute upper respiratory infection, unspecified Condition: Stable Disposition: HOME, SELF-CARE Additional Instructions: Bronchitis with Bronchospasm (Wheezing): You have bronchitis with bronchospasm (wheezing). Sometimes people develop wheezing with a chest cold. This occurs either because of an underlying tendency toward asthma or because the virus itself irritates the bronchial tubes. This irritation causes cough, shortness of breath, and wheezing. Emergency treatment of bronchospasm may include adrenaline shots or bronchodilator aerosol. You may feel lightheaded and have a rapid pulse for an hour or two. Rest and get plenty of fluids. At home, we'll treat you with a bronchodilator inhaler. Corticosteroids may be required for some patients. Until you recover, avoid chemical fumes, dusts, pollens, and exercising in very cold or dry air. If you smoke, stop now! Most cases of bronchitis get better without antibiotics. We prescribe antibiotics when we believe bacteria are damaging your airways, or if there's high risk the bronchitis will worsen into pneumonia. Increase your fluid intake. A cool mist humidifier may make your lungs more comfortable. An expectorant (cough medicine that loosens phlegm) can help. Repeated episodes of bronchitis and bronchospasm may result in lung damage -- for example, chronic bronchitis, recurrent pneumonias, or emphysema. If you develop a fever, increased wheezing, chest pain, or severe shortness of breath, you should contact the doctor immediately. USE THE INHALER 2 PUFFS EVERY 4 HOURS FOR WHEEZING NEEDED. DRINK PLENTY OF FLUIDS. START THE PREDNISONE PRESCRIPTION TOMORROW. IT WILL MAKE YOUR BLOOD SUGAR GO HIGHER, SO YOU WILL NEED TO DRINK A LOT MORE WATER. CONTINUE THE BACTRIM UNTIL IT IS GONE. TRY ROBITUSSIN-DM FOR COUGH CONTROL. FOLLOW UP WITH A LOCAL MEDICAL DOCTOR IF NOT IMPROVING. RETURN TO THE EMERGENCY ROOM IF ANY NEW OR WORSENING SYMPTOMS. Prescriptions: Prednisone [Deltasone 10 mg Tablet] 10 mg PO ASDIR PRN #21 tablet PRN Reason: Referrals: SHARON CHRIS DO [Primary Care Provider] - Follow up as needed Scribe Attestation: 02/01/17 17:18 I personally performed the services described in the documentation, reviewed and edited the documentation which was dictated to the scribe in my presence, and it accurately records my words and actions. (ZAID CHANDLER) Scribe Documentation - Scribe Written by Scribe:: Jocelyn Cunningham, 02/01/2017 1449 acting as scribe for :: Radha <HOPE SIMMONS - Last Filed: 02/01/17 14:50>
[2017-02-01] MEDS ORDERED: IPRATROPIUM/ALBUTEROL 0.5-2.5 MG/3 ML AMPUL NEB ONE (14:46)
[2017-02-01] MEDS ORDERED: ALBUTEROL SULFATE 0.083% NEB 2.5 MG/3 ML AMPUL NEB ONE (14:46)
[2017-02-01] MEDS ORDERED: PREDNISONE 20 MG TABLET PO ONE (14:46)
[2017-02-01] MEDS ORDERED: ONDANSETRON HCL INJ/PF 4 MG/2 ML SDV IV ONE (14:46)
[2017-02-01] MEDS ORDERED: ALBUTEROL SULFATE HFA (90 MCG/PUFF) 8 GM MDI (1 MDI/ER DISP) IH ONE (17:18)
[2017-02-01 18:08] VITALS: BP 132/68
== END 2017-02-01 18:04 | disposition home or self-care (01) ==
LOC: ER 12:13
DX: J44.1 Chronic obstructive pulmonary disease with (acute) exacerbation (principal); J06.9 Acute upper respiratory infection, unspecified; Z76.5 Malingerer [conscious simulation]; F17.210 Nicotine dependence, cigarettes, uncomplicated; H92.09 Otalgia, unspecified ear; R10.9 Unspecified abdominal pain; E78.00 Pure hypercholesterolemia, unspecified; I10 Essential (primary) hypertension; E11.9 Type 2 diabetes mellitus without complications; Z88.3 Allergy status to other anti-infective agents
CPT/HCPCS: 94640 ×2; 99284; 96361; 96374; 36415; 83690; 85025; 81025; 80053; 81001; J7512; J2405; J7030; J3490; J7620

== ENCOUNTER 2017-02-02 10:58 | Emergency (ER) | payer SELFPAY ==
[2017-02-02 12:16] LABS: ABSOLUTE LYMPHOCYTES (AUTO) 1.3 10^3/uL (0.5-4.7); ABSOLUTE MONOCYTES (AUTO) 0.6 10^3/uL (0.1-1.4); ABSOLUTE NEUT (AUTO) 7.6 10^3/uL (1.7-8.2); BASOPHILS % (AUTO) 0.4 % (0-2); EOSINOPHILS % (AUTO) 0.1 % (0-6); HEMATOCRIT 41.7 % (36.0-47.0); HGB HCT DIFFERENCE 0.9; LYMPHOCYTES % (AUTO) 14.1 % (13-45); MEAN CORPUSCULAR HGB CONC 34.2 g/dL (32.0-36.0); MEAN CORPUSCULAR VOLUME 88 fl (80-97); RED BLOOD COUNT 4.74 10^6/uL (3.72-5.28); RED CELL DISTRIBUTION WIDTH 14.2 % (11.5-14.0); SEGMENTED NEUTROPHILS % (AUTO) 79.4 % (42-78); WHITE BLOOD COUNT 9.5 10^3/uL (4.0-10.5)
[2017-02-02 12:18] LABS: HEMOGLOBIN 14.2 g/dL (12.0-15.5)
[2017-02-02 12:26] LABS: ALANINE AMINOTRANSFERASE 25 U/L (9-52); ALBUMIN 4.4 g/dL (3.5-5.0); ALKALINE PHOSPHATASE 71 U/L (38-126); ANION GAP 17 (5-19); ASPARTATE AMINO TRANSFERASE 11 U/L (14-36); BILIRUBIN,DIRECT 0.4 mg/dL (0.0-0.4); BILIRUBIN,TOTAL 0.7 mg/dL (0.2-1.3); BLOOD UREA NITROGEN 16 mg/dL (7-20); CALCIUM 9.6 mg/dL (8.4-10.2); CARBON DIOXIDE 21 mmol/L (22-30); CHLORIDE 102 mmol/L (98-107); CREATINE KINASE 23 U/L (30-135); CREATININE RESULT 1.32 mg/dL (0.52-1.25); GLUCOSE 173 mg/dL (75-110); LIPASE 87.6 U/L (23-300); POTASSIUM 3.7 mmol/L (3.6-5.0); SODIUM 140.3 mmol/L (137-145); TOTAL PROTEIN 7.1 g/dL (6.3-8.2)
--- NOTE | 2017-02-02 12:37 | RADIOLOGY REPORT (SQ) ---
EXAM DESCRIPTION: CHEST PA/LAT COMPLETED DATE/TIME: 02/02/2017 12:23 pm REASON FOR STUDY: Cough 1 week with blood now COMPARISON: Chest films 08/18/2016, 11/04/2015 EXAM PARAMETERS: NUMBER OF VIEWS: two views TECHNIQUE: Digital Frontal and Lateral radiographic views of the chest acquired. RADIATION DOSE: NA LIMITATIONS: none FINDINGS: LUNGS AND PLEURA: No opacities, masses or pneumothorax. No pleural effusion. MEDIASTINUM AND HILAR STRUCTURES: No masses or contour abnormalities. HEART AND VASCULAR STRUCTURES: Heart normal size. No evidence for failure. BONES: No acute findings. HARDWARE: None in the chest. OTHER: No other significant finding. IMPRESSION: NO SIGNIFICANT RADIOGRAPHIC FINDING IN THE CHEST. TECHNICAL DOCUMENTATION: JOB ID: [id number] [employer]- All Rights Reserved
[2017-02-02 12:41] LABS: CREATINE KINASE MB < 0.22 ng/mL (<4.55); TROPONIN I < 0.012 ng/mL
[2017-02-02 12:45] LABS: APPEARANCE,URINE SLIGHTLY-CLOUDY; BILIRUBIN,URINE SMALL (NEGATIVE); GLUCOSE, URINE NEGATIVE (NEGATIVE); KETONES,URINE NEGATIVE (NEGATIVE); LEUKOCYTE ESTERASE,URINE NEGATIVE (NEGATIVE); NITRITE,URINE NEGATIVE (NEGATIVE); PROTEIN,URINE 30 mg/dL (NEGATIVE); URINE SPECIFIC GRAVITY 1.031
--- NOTE | 2017-02-02 13:42 | ER Document Report ---
ED General - General Chief Complaint: Vomiting Stated Complaint: DIFFICULTY BREATHING Time Seen by Provider: 02/02/17 11:42 Notes: Patient says that she has been having difficulty breathing for the past couple of days. Says she was seen here yesterday for the same and also seen here last Wednesday. On Wednesday, she was diagnosed as having an URI and fluid in her ears and put on Bactrim, but her symptoms have persisted. She complains of some tightness in her chest. Using an inhaler without relief of symptoms. She is also been vomiting from 4-7 times a day, for the past week. Last night, noted blood in her vomitus. Has had some cough and congestion. Denies any fever. Advised to come here to be checked by her doctor, Dr. Starkey, whom she has an appointment to see tomorrow. TRAVEL OUTSIDE OF THE [place] IN LAST 30 DAYS: No - Related Data Allergies/Adverse Reactions: ciprofloxacin [From Cipro] Allergy (Verified 02/02/17 11:30) ciprofloxacin HCl [From Cipro] Allergy (Verified 02/02/17 11:30) Home Medications: Current Home Medications Atorvastatin Calcium [Lipitor 40 mg Tablet] 40 mg PO QHS 02/02/17 [History] Insulin Detemir [Levemir] 30 unit SQ DAILY 02/02/17 [History] Oxycodone HCl 10 mg PO Q6H 02/02/17 [History] Past Medical History - Social History Smoking Status: Current Some Day Smoker - Patient has smoked a half a pack of cigarettes a day for 30 years. Trying to stop smoking now and says she is down to a few cigarettes a day. Frequency of alcohol use: None Drug Abuse: None Family History: Reviewed & Not Pertinent, Arthritis, DM, Hyperlipidemia, Hypertension, Malignancy - Past Medical History Cardiac Medical History: Reports: Hx Hypercholesterolemia, Hx Hypertension, Hx Heart Murmur Endocrine Medical History: Reports: Hx Diabetes Mellitus Type 1, Hx Diabetes Mellitus Type 2 Renal/ Medical History: Reports: Hx Ovarian Cysts Malignancy Medical History: Reports: Hx Cervical Cancer GI Medical History: Reports: Hx Gastroesophageal Reflux Disease, Hx Irritable Bowel, Hx Ulcer, Hx Colonoscopy, Hx Endoscopy Musculoskeltal Medical History: Reports Hx Arthritis, Reports Hx Musculoskeletal Deformity - Scoliosis to gentle disc 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 EENT: Denies eye, ear, nose or mouth pain or other symptoms. Complains of a sore throat. CARDIOVASCULAR: Denies chest pain. RESPIRATORY: Patient has a cough and congestion with white sputum with some blood present. GASTROINTESTINAL: Denies abdominal pain or nausea, vomiting, or diarrhea. History of Bower's esophagitis. GENITOURINARY: Denies difficulty or painful urinating, urinary frequency, blood in urine. History of endometriosis and endometrial ablation. MUSCULOSKELETAL: Denies back or neck pain. Denies joint pain or swelling. SKIN: Denies rash or skin lesions. NEUROLOGICAL: Denies LOC or altered mental status. Denies headache. Denies sensory loss or motor deficits. ALL OTHER SYSTEMS REVIEWED AND NEGATIVE. Physical Exam - Vital signs Vitals: Temp Pulse Resp BP Pulse Ox 98.4 F 96 18 134/64 H 96 02/02/17 11:24 02/02/17 11:24 02/02/17 11:24 02/02/17 11:24 02/02/17 11:24 Interpretation: Normal - Notes Notes: PHYSICAL EXAMINATION: GENERAL: Well-appearing, in no acute distress. Very anxious. However, does not appear ill. HEAD: Atraumatic, normocephalic. EYES: Pupils equal round and reactive to light, extraocular movements intact. ENT: oropharynx clear without exudates. Moist mucous membranes. NECK: Normal range of motion, supple. LUNGS: Breath sounds clear and equal bilaterally. No wheezes heard. HEART: Regular rate and rhythm without murmurs. ABDOMEN: Soft, nontender. No guarding or rebound. No bruits heard. BACK: No tenderness throughout entire back. EXTREMITIES: Normal range of motion without pain. NEUROLOGICAL: Normal speech, normal gait. Normal sensory, motor, and reflex exams. Awake, alert, and oriented x3. Cranial nerves normal. PSYCH: Very anxious and nervous. SKIN: Warm, dry, no rashes. Course - Re-evaluation Re-evalutation: 02/02/17 13:40 Labs are all essentially normal. Perhaps a suggestion of very slight dehydration. From the chemistries. Patient's hemoglobin is 14.2. - Vital Signs Vital signs: Temp Pulse Resp BP Pulse Ox 98.4 F 96 22 H 120/74 97 02/02/17 11:24 02/02/17 11:24 02/02/17 14:06 02/02/17 14:06 02/02/17 14:06 - Laboratory Result Diagrams: 02/02/17 11:59 02/02/17 11:59 Laboratory results interpreted by me: 02/02/17 02/02/17 02/02/17 11:59 11:59 12:14 RDW 14.2 H Seg Neutrophils % 79.4 H Carbon Dioxide 21 L Creatinine 1.32 H Est GFR ( Amer) 52 L Est GFR (Non-Af Amer) 43 L Glucose 173 H AST 11 L Creatine Kinase 23 L Urine Protein 30 H Urine Bilirubin SMALL H Urine Urobilinogen 2.0 H - Diagnostic Test Radiology results interpreted by me: 02/02/17 13:41 Chest x-ray is normal. - EKG Interpretation by Me EKG shows normal: Sinus rhythm Rate: Normal Rhythm: NSR Discharge - Discharge Clinical Impression: Vomiting, Anxiety Condition: Stable Disposition: HOME, SELF-CARE Additional Instructions: VOMITING: Vomiting (or nausea without vomiting) can be caused by many other different problems. It can mean that something's wrong with the stomach, such as ulcers or inflammation or the intestinal tract, such as appendicitis. But it can also be a symptom of a problem that has nothing to do with the stomach or intestines. Vomiting is common with severe headaches, earaches, tonsillitis, and kidney infections, etc. We see it with pneumonia or heart attacks. Drugs can cause nausea and vomiting. Many abdominal problems cause vomiting; for example, gallstones, kidney stones, pancreatitis, and intestinal obstruction ( blocked bowels). In most cases, curing the vomiting depends on fixing the problem that caused it. For temporary relief, we may use an anti-nausea medicine. For home use, we can prescribe suppositories, chewable pills, pills that dissolve in the mouth, or liquid anti-nausea drugs. If the vomiting seems to be caused by a problem in the stomach, acid-suppressing drugs may be prescribed as well. It's important to avoid dehydration. Sip small amounts of clear liquids ( soft drinks, tea, broth, etc) . Try to take fluids frequently even if you are vomiting to prevent dehydration. Take increasing amounts of fluid and when liquids are being consumed successfully, advance to small amounts of bland food (toast, soups, mashed potatoes, etc.) until you are able to resume a regular diet. Avoid aspirin, tobacco, and alcohol. If the vomiting worsens, if the problem that's making you vomit worsens, or if there's evidence of bleeding in the stomach (such as black, tarry stool, or bloody or black vomit), you should return immediately. Also, return if abdominal pain worsens or becomes localized to one area or you develop high fever. Call your doctor if you aren't improved in 24 hours. ANTINAUSEA MEDICATION: You have been given a medication to suppress nausea and vomiting. This type of medication can be given as a shot, pill, or suppository. It will usually last for many hours. Pills and shots usually last six to eight hours. For the typical illness, only one or two doses of the medication may be necessary. Mild lightheadedness may occur. This type of medicine can cause drowsiness. Do not drive or operate dangerous machinery while under its influence. Do not mix with alcohol. See your doctor at once if you have muscle spasms or tightness, or uncontrollable motions (particularly of the neck, mouth, or jaw). Persistent vomiting or severe lightheadedness should also be evaluated by the physician. FOLLOW-UP CARE: If you have been referred to a physician for follow-up care, call the physician s office for an appointment as you were instructed or within the next two days. If you experience worsening or a significant change in your symptoms, notify the physician immediately or return to the Emergency Department at any time for re-evaluation. Keep your appointment to see your doctor tomorrow. Prescriptions: Ondansetron [Zofran Odt 4 mg Tablet] 1 - 2 tab PO Q4H PRN #12 tab.rapdis PRN Reason: For Nausea/Vomiting Referrals: SHARON STARKEY DO [NO LOCAL MD] - Follow up tomorrow
[2017-02-02] MEDS ORDERED: ONDANSETRON HCL INJ/PF 4 MG/2 ML SDV IV ONE (13:48)
[2017-02-02 14:08] VITALS: BP 120/74
--- NOTE | 2017-02-02 16:32 | EKG REPORT ---
SEVERITY:- NORMAL ECG - SINUS RHYTHM : Confirmed by: Jean Claude Telles 02-Feb-2017 16:31:32
== END 2017-02-02 14:16 | disposition home or self-care (01) ==
LOC: ER 10:58
DX: K92.0 Hematemesis (principal); F41.9 Anxiety disorder, unspecified; J02.9 Acute pharyngitis, unspecified; R07.89 Other chest pain; R05 Cough; R06.00 Dyspnea, unspecified; F17.210 Nicotine dependence, cigarettes, uncomplicated; I10 Essential (primary) hypertension; E11.9 Type 2 diabetes mellitus without complications; Z85.41 Personal history of malignant neoplasm of cervix uteri; Z88.1 Allergy status to other antibiotic agents
CPT/HCPCS: 93005; 99284; 36415; 82553; 82550; 83690; 85025; 80053; 81001; 84484; 71020; 93010; J2405

== ENCOUNTER 2017-03-22 10:19 | Emergency (ER) | payer SELFPAY ==
[2017-03-22] MEDS ORDERED: ONDANSETRON 4 MG TAB.RAPDIS PO ONE (11:15)
[2017-03-22] MEDS ORDERED: ACETAMINOPHEN 325 MG TABLET PO ONE (11:16)
[2017-03-22] MEDS ORDERED: IPRATROPIUM/ALBUTEROL 0.5-2.5 MG/3 ML AMPUL NEB ONE (11:17)
[2017-03-22 12:36] LABS: APPEARANCE,URINE SLIGHTLY-CLOUDY; BILIRUBIN,URINE SMALL (NEGATIVE); GLUCOSE, URINE NEGATIVE (NEGATIVE); KETONES,URINE TRACE mg/dL (NEGATIVE); LEUKOCYTE ESTERASE,URINE TRACE (NEGATIVE); NITRITE,URINE NEGATIVE (NEGATIVE); PROTEIN,URINE 30 mg/dL (NEGATIVE); URINE SPECIFIC GRAVITY 1.029
[2017-03-22] MEDS ORDERED: PREDNISONE 20 MG TABLET PO ONE (13:01)
[2017-03-22] MEDS ORDERED: ALBUTEROL SULFATE 0.083% NEB 2.5 MG/3 ML AMPUL NEB ONE (13:01)
--- NOTE | 2017-03-22 13:08 | ER Document Report ---
HPI - HPI Patient complains to provider of: Sore throat, cough, nausea and vomiting Onset: Yesterday Onset/Duration: Gradual Quality of pain: Achy Pain Level: 5 Context: She presents complaining of cough, sore throat with nausea and vomiting that started yesterday. Patient states she is vomited 3 times. Patient is here with her child who has similar symptoms. Patient denies any fever. Patient does complain of some upper abdominal discomfort. Patient states she was told that she needs to have her gallbladder removed and is concerned about this today. Associated Symptoms: Nonproductive cough, Nausea, Vomiting, Sore throat. denies : Earache, Fever, Headache Exacerbated by: Denies Relieved by: Denies Similar symptoms previously: Yes Recently seen / treated by doctor: No - ROS ROS below otherwise negative: Yes Systems Reviewed and Negative: Yes All other systems reviewed and negative - CONSTITUTIONAL Constitutional: DENIES: Fever, Chills - EENT EENT: REPORTS: Sore Throat. DENIES: Ear Pain, Eye problems - NEURO Neurology: DENIES: Weakness, Vision blurred, Dizzinesss / Vertigo - CARDIOVASCULAR Cardiovascular: DENIES: Chest pain - RESPIRATORY Respiratory: REPORTS: Coughing. DENIES: Trouble Breathing - GASTROINTESTINAL Gastrointestinal: REPORTS: Abdominal Pain, Nausea, Patient vomiting. DENIES: Black / Bloody Stools - URINARY Urinary: DENIES: Dysuria, Urgency, Frequency - REPRODUCTIVE LMP: none Reproductive: DENIES: : - MUSCULOSKELETAL Musculoskeletal: DENIES: Extremity pain, Back Pain - DERM Skin Color: Normal Skin Problems: None Past Medical History - General Information source: Patient - Social History Smoking Status: Current Every Day Smoker Chew tobacco use (# tins/day): No Frequency of alcohol use: None Drug Abuse: None Occupation: None Lives with: Family Family History: Reviewed & Not Pertinent, Arthritis, DM, Hyperlipidemia, Hypertension, Malignancy Patient has suicidal ideation: No Patient has homicidal ideation: No - Past Medical History Cardiac Medical History: Reports: Hx Hypercholesterolemia, Hx Hypertension, Hx Heart Murmur Endocrine Medical History: Reports: Hx Diabetes Mellitus Type 1, Hx Diabetes Mellitus Type 2 Renal/ Medical History: Reports: Hx Ovarian Cysts. 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, Reports Hx Musculoskeletal Trauma Psychiatric Medical History: Reports: Hx Anxiety, Hx Bipolar Disorder, Hx Depression Past Surgical History: Reports: Hx Dilation and Curettage, Hx Gynecologic Surgery - Ablation, Rt ovarian cyst removed left removed, coned biopsy for cervical c, Hx Hysterectomy, Hx Tubal Ligation, Other - Told needs to have gallbladder removed because it's not functioning properl - Immunizations Immunizations up to date: Yes Hx Diphtheria, Pertussis, Tetanus Vaccination: Yes Vertical Provider Document - CONSTITUTIONAL Agree With Documented VS: Yes Exam Limitations: No Limitations General Appearance: WD/WN, No Apparent Distress - INFECTION CONTROL TRAVEL OUTSIDE OF THE [place] IN LAST 30 DAYS: No - HEENT HEENT: Atraumatic, Normocephalic, Pharyngeal Tenderness, Pharyngeal Erythema. negative: Pharyngeal Exudate - NECK Neck: Normal Inspection, Supple. negative: Lymphadenopathy-Left, Lymphadenopathy-Right - RESPIRATORY Respiratory: No Respiratory Distress, Wheezing O2 Sat by Pulse Oximetry: 96 - CARDIOVASCULAR Cardiovascular: Regular Rate, Regular Rhythm, No Murmur - GI/ABDOMEN Gastrointestinal: Abdomen Soft, Abdomen Tender - Periumbilical, Normal Bowel Sounds - BACK Back: Normal Inspection. negative: CVA Tenderness-Right, CVA Tenderness-Left - MUSCULOSKELETAL/EXTREMETIES Musculoskeletal/Extremeties: MAEW - NEURO Level of Consciousness: Awake, Alert, Appropriate Motor/Sensory: No Motor Deficit - DERM Integumentary: Warm, Dry, No Rash Course - Re-evaluation Re-evalutation: 03/22/17 13:07 On repeat exam patient continues with wheezing. Respirations unlabored. Patient complains of continued tenderness. Patient now with tenderness to epigastric and right upper quadrant area. Pt states she knows that she is supposed to get her gallbladder taken out. 03/22/17 14:54 pt resting comfortably, pt denies any n/v at this time 03/22/17 19:44 Pt is nontoxic in appearance. Discussed results of patient's ultrasound with patient. Patient encouraged to follow-up with her primary doctor for further evaluation of fatty infiltration of her liver. No concern for acute cholecystitis or choledocholithiasis. No concern for pancreatitis. - Vital Signs Vital signs: Temp Pulse Resp BP Pulse Ox 98.9 F 105 H 16 127/83 H 96 03/22/17 10:31 12/11/17 10:31 03/22/17 10:31 03/22/17 10:31 03/22/17 10:31 - Laboratory Result Diagrams: 03/22/17 13:11 03/22/17 13:11 Laboratory results interpreted by me: 03/22/17 03/22/17 11:42 12:13 POC Glucose 147 H Urine Protein 30 H Urine Ketones TRACE H Urine Bilirubin SMALL H Urine Urobilinogen 2.0 H Ur Leukocyte Esterase TRACE H 03/22/17 15:50 Labs- Entire Visit 03/22/17 03/22/17 03/22/17 11:42 11:43 12:13 WBC RBC Hgb Hct MCV MCH MCHC RDW Plt Count Seg Neutrophils % Lymphocytes % Monocytes % Eosinophils % Basophils % Absolute Neutrophils Absolute Lymphocytes Absolute Monocytes Absolute Eosinophils Absolute Basophils Sodium Potassium Chloride Carbon Dioxide Anion Gap BUN Creatinine Est GFR ( Amer) Est GFR (Non-Af Amer) Glucose POC Glucose 147 H Calcium Total Bilirubin Direct Bilirubin Neonat Total Bilirubin Neonat Direct Bilirubin Neonat Indirect Bili AST ALT Alkaline Phosphatase Total Protein Albumin Lipase Urine Color YELLOW Urine Appearance SLIGHTLY-CLOUDY Urine pH 5.0 Ur Specific May 1.029 Urine Protein 30 H Urine Glucose (UA) NEGATIVE Urine Ketones TRACE H Urine Blood NEGATIVE Urine Nitrite NEGATIVE Urine Bilirubin SMALL H Urine Urobilinogen 2.0 H Ur Leukocyte Esterase TRACE H Urine WBC (Auto) 2 Urine RBC (Auto) 2 U Hyaline Cast (Auto) 1 Squamous Epi Cells Auto 3 Urine Mucus (Auto) RARE Urine Ascorbic Acid NEGATIVE Group A Strep Rapid NEGATIVE 03/22/17 03/22/17 13:11 13:11 WBC 6.8 RBC 4.72 Hgb 13.9 Hct 41.2 MCV 87 MCH 29.4 MCHC 33.7 RDW 13.6 Plt Count 177 Seg Neutrophils % 77.9 Lymphocytes % 17.1 Monocytes % 4.6 Eosinophils % 0.2 Basophils % 0.2 Absolute Neutrophils 5.3 Absolute Lymphocytes 1.2 Absolute Monocytes 0.3 Absolute Eosinophils 0.0 Absolute Basophils 0.0 Sodium 139.0 Potassium 4.2 Chloride 103 Carbon Dioxide 23 Anion Gap 13 BUN 13 Creatinine 0.98 Est GFR ( Amer) > 60 Est GFR (Non-Af Amer) > 60 Glucose 146 H POC Glucose Calcium 9.2 Total Bilirubin 0.4 Direct Bilirubin 0.4 Neonat Total Bilirubin Not Reportable Neonat Direct Bilirubin Not Reportable Neonat Indirect Bili Not Reportable AST 13 L ALT 33 Alkaline Phosphatase 73 Total Protein 6.2 L Albumin 3.7 Lipase 74.3 Urine Color Urine Appearance Urine pH Ur Specific May Urine Protein Urine Glucose (UA) Urine Ketones Urine Blood Urine Nitrite Urine Bilirubin Urine Urobilinogen Ur Leukocyte Esterase Urine WBC (Auto) Urine RBC (Auto) U Hyaline Cast (Auto) Squamous Epi Cells Auto Urine Mucus (Auto) Urine Ascorbic Acid Group A Strep Rapid - Diagnostic Test Radiology reviewed: Reports reviewed Discharge - Discharge Clinical Impression: Cough, Sore throat, Fatty liver, Wheezing Abdominal pain Qualifiers: Abdominal location: unspecified location Qualified Code(s): R10.9 - Unspecified abdominal pain Nausea & vomiting Qualifiers: Vomiting type: unspecified Vomiting Intractability: non-intractable Qualified Code(s): R11.2 - Nausea with vomiting, unspecified Condition: Stable Disposition: HOME, SELF-CARE Instructions: Antinausea Medication ([facility]), Sore Throat ([facility]), Viral Syndrome ( [facility]), Vomiting ([facility]) Additional Instructions: Return immediately for any new or worsening symptoms Followup with your primary care provider, call tomorrow to make a followup appointment Prescriptions: Ondansetron HCl [Zofran 4 mg Tablet] 1 - 2 tab PO Q6 PRN #15 tablet PRN Reason: Prednisone [Deltasone 20 mg Tablet] 3 tab PO DAILY 4 Days tablet Referrals: SHARON CHRIS DO [Primary Care Provider] - Follow up tomorrow
[2017-03-22 13:22] LABS: ABSOLUTE LYMPHOCYTES (AUTO) 1.2 10^3/uL (0.5-4.7); ABSOLUTE MONOCYTES (AUTO) 0.3 10^3/uL (0.1-1.4); ABSOLUTE NEUT (AUTO) 5.3 10^3/uL (1.7-8.2); BASOPHILS % (AUTO) 0.2 % (0-2); EOSINOPHILS % (AUTO) 0.2 % (0-6); HEMATOCRIT 41.2 % (36.0-47.0); HEMOGLOBIN 13.9 g/dL (12.0-15.5); HGB HCT DIFFERENCE 0.5; LYMPHOCYTES % (AUTO) 17.1 % (13-45); MEAN CORPUSCULAR HEMOGLOBIN 29.4 pg (27.0-33.4); MEAN CORPUSCULAR HGB CONC 33.7 g/dL (32.0-36.0); MEAN CORPUSCULAR VOLUME 87 fl (80-97); MONOCYTES % (AUTO) 4.6 % (3-13); RED BLOOD COUNT 4.72 10^6/uL (3.72-5.28); RED CELL DISTRIBUTION WIDTH 13.6 % (11.5-14.0); SEGMENTED NEUTROPHILS % (AUTO) 77.9 % (42-78); WHITE BLOOD COUNT 6.8 10^3/uL (4.0-10.5)
[2017-03-22 13:50] LABS: ALANINE AMINOTRANSFERASE 33 U/L (9-52); ALBUMIN 3.7 g/dL (3.5-5.0); ALKALINE PHOSPHATASE 73 U/L (38-126); ANION GAP 13 (5-19); ASPARTATE AMINO TRANSFERASE 13 U/L (14-36); BILIRUBIN,DIRECT 0.4 mg/dL (0.0-0.4); BILIRUBIN,TOTAL 0.4 mg/dL (0.2-1.3); BLOOD UREA NITROGEN 13 mg/dL (7-20); CALCIUM 9.2 mg/dL (8.4-10.2); CARBON DIOXIDE 23 mmol/L (22-30); CHLORIDE 103 mmol/L (98-107); CREATININE RESULT 0.98 mg/dL (0.52-1.25); GLUCOSE 146 mg/dL (75-110); LIPASE 74.3 U/L (23-300); POTASSIUM 4.2 mmol/L (3.6-5.0); TOTAL PROTEIN 6.2 g/dL (6.3-8.2)
--- NOTE | 2017-03-22 15:22 | RADIOLOGY REPORT (SQ) ---
EXAM DESCRIPTION: U/S ABDOMEN COMPLETE W/O DOP COMPLETED DATE/TIME: 03/22/2017 3:09 pm REASON FOR STUDY: ruq pain COMPARISON: 11/23/2016 TECHNIQUE: Dynamic and static grayscale images acquired of the abdomen and recorded on PACS. Casso shannon selected color Doppler and spectral images recorded. LIMITATIONS: None. FINDINGS: PANCREAS: No masses. Visualized pancreatic duct normal caliber. LIVER: No masses. Interval increased Echotexture consistent with fatty infiltration of the liver. LIVER VASCULATURE: Normal directional flow of the main portal vein and hepatic veins. GALLBLADDER: No stones. Normal wall thickness. No pericholecystic fluid. ULTRASOUND-DETECTED MITCHELL'S SIGN: Negative. INTRAHEPATIC DUCTS AND COMMON DUCT: CBD and intrahepatic ducts normal caliber. No filling defects. INFERIOR VENA CAVA: Normal flow. AORTA: No aneurysm. RIGHT KIDNEY: Normal size. Normal echogenicity. No solid or suspicious masses. No hydronephros is. No calcifications. LEFT KIDNEY: Normal size. Normal echogenicity. No solid or suspicious masses. No hydronephrosi s. No calcifications. SPLEEN: Normal size. No solid masses. PERITONEAL AND PLEURAL SPACES: No ascites or effusions. OTHER: No other significant finding. IMPRESSION: New Fatty liver. No acute findings. TECHNICAL DOCUMENTATION: JOB ID: [id number] [id number] 2010 [employer]- All Rights Reserved
[2017-03-22 16:06] VITALS: BP 100/61
== END 2017-03-22 16:06 | disposition home or self-care (01) ==
LOC: ER 10:19
DX: R11.2 Nausea with vomiting, unspecified (principal); K76.0 Fatty (change of) liver, not elsewhere classified; R06.2 Wheezing; R05 Cough; R10.9 Unspecified abdominal pain; E78.00 Pure hypercholesterolemia, unspecified; I10 Essential (primary) hypertension; E11.9 Type 2 diabetes mellitus without complications; Z90.710 Acquired absence of both cervix and uterus
CPT/HCPCS: 94640; 99284; 36415; 87070; 87880; 82962; 83690; 85025; 80053; 81001; 76700; S0119; J7512; J7620

== ENCOUNTER 2017-10-24 21:33 | Emergency (ER) | payer SELFPAY ==
[~2017-10-24 21:33] MED LIST: ROCURONIUM BROMIDE INJ 50 MG/5 ML VIAL IV ONE
[2017-10-24 22:45] LABS: HEMATOCRIT 47.9 % (36.0-47.0); HEMOGLOBIN 15.1 g/dL (12.0-15.5); MEAN CORPUSCULAR HEMOGLOBIN 29.8 pg (27.0-33.4); MEAN CORPUSCULAR HGB CONC 31.4 g/dL (32.0-36.0); MEAN CORPUSCULAR VOLUME 95 fl (80-97); PLATELET COUNT 409 10^3/uL (150-450); RED BLOOD COUNT 5.06 10^6/uL (3.72-5.28); RED CELL DISTRIBUTION WIDTH 14.4 % (11.5-14.0); WHITE BLOOD COUNT 27.1 10^3/uL (4.0-10.5)
[2017-10-24 22:54] LABS: ALANINE AMINOTRANSFERASE 19 U/L (9-52); ALKALINE PHOSPHATASE 80 U/L (38-126); ASPARTATE AMINO TRANSFERASE 33 U/L (14-36); BILIRUBIN,DIRECT 0.5 mg/dL (0.0-0.4); BILIRUBIN,TOTAL 0.5 mg/dL (0.2-1.3); BLOOD UREA NITROGEN 47 mg/dL (7-20); CALCIUM 9.7 mg/dL (8.4-10.2); GLUCOSE 101 mg/dL (75-110); LIPASE 203.8 U/L (23-300); POTASSIUM 4.4 mmol/L (3.6-5.0); TOTAL PROTEIN 7.6 g/dL (6.3-8.2)
[2017-10-24 23:03] LABS: ABSOLUTE LYMPHOCYTES# (MANUAL) 7.3 10^3/uL (0.5-4.7); ABSOLUTE MONOCYTES # (MANUAL) 0.8 10^3/uL (0.1-1.4); ABSOLUTE NEUTROPHILS# (MANUAL) 18.7 10^3/uL (1.7-8.2); BASOPHILS % (MANUAL) 1 % (0-2); EOSINOPHILS % (MANUAL) 0 % (0-6); LYMPHOCYTES % (MANUAL) 26 % (13-45); METAMYELOCYTES % (MANUAL) 1 % (0); MONOCYTES % (MANUAL) 3 % (3-13); SEGMENTED NEUTROPHILS % (MAN) 68 % (42-78); TOTAL CELLS COUNTED 100
[2017-10-24 23:07] LABS: PLATELET COMMENT ADEQUATE; RBC MORPHOLOGY COMMENT NORMO-CYTIC/CHROMIC
[2017-10-24 23:23] LABS: CHLORIDE 92 mmol/L (98-107); SODIUM 147.6 mmol/L (137-145)
[2017-10-24 23:26] LABS: CARBON DIOXIDE < 5 mmol/L (22-30)
[2017-10-24] MEDS ORDERED: RINGERS SOLUTION,LACTATED 2,000 ML IV ONE (23:53)
[2017-10-24] MEDS ORDERED: METOCLOPRAMIDE HCL INJ/PF 10 MG/2 ML SDV IV ONE (23:54)
[2017-10-24] MEDS ORDERED: MORPHINE SULFATE 10 MG/ML INJ IV PRN (23:56)
[2017-10-24] MEDS ORDERED: DEXTROSE 5%-WATER 1000 ML 1,000 ML with SODIUM BICARBONATE 150 MEQ IV PRN ×2 (23:59)
[2017-10-25] MEDS ORDERED: CEFEPIME 2 GM/D5W RTU 2 GM/50 ML RTUPB IV ONE (00:04)
--- NOTE | 2017-10-25 00:04 | ER Document Report ---
ED General - General Chief Complaint: Abdominal Pain Stated Complaint: ABDOMINAL PAIN Time Seen by Provider: 10/24/17 22:14 Notes: Patient is a 47-year old female who presents with complaints of generalized abdominal pain, nausea and vomiting for the past 24 hours. Please note that my initial assessment was delayed by almost 45 minutes as the patient was repeatedly in the restroom when I attempted to assess her. When I did assess the patient she and her family report that they drove from [place] today and came directly to the emergency department upon arrival due to her ongoing abdominal pain and vomiting. The patient states that she has only urinated once today. She describes abdominal pain as an aching, throbbing, cramping pain diffusely to her lower abdomen. Nothing improves or worsens her symptoms. She denies any history of similar symptoms in the past. She has not contacted her primary care doctor regarding today's concerns. She denies any drug or alcohol ingestion other than her chronic oxycodone. TRAVEL OUTSIDE OF THE [place] IN LAST 30 DAYS: No - Related Data Allergies/Adverse Reactions: ciprofloxacin [From Cipro] Allergy (Verified 03/22/17 10:22) ciprofloxacin HCl [From Cipro] Allergy (Verified 03/22/17 10:22) Past Medical History - General Information source: Patient, Parent - Social History Smoking Status: Current Every Day Smoker Frequency of alcohol use: None Drug Abuse: None Lives with: Family Family History: Reviewed & Not Pertinent, Arthritis, DM, Hyperlipidemia, Hypertension, Malignancy - Past Medical History Cardiac Medical History: Reports: Hx Hypercholesterolemia, Hx Hypertension, Hx Heart Murmur Endocrine Medical History: Reports: Hx Diabetes Mellitus Type 1, Hx Diabetes Mellitus Type 2 Renal/ Medical History: Reports: Hx Ovarian Cysts. 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, Reports Hx Musculoskeletal Trauma Psychiatric Medical History: Reports: Hx Anxiety, Hx Bipolar Disorder, Hx Depression Past Surgical History: Reports: Hx Dilation and Curettage, Hx Gynecologic Surgery - Ablation, Rt ovarian cyst removed left removed, coned biopsy for cervical c, Hx Hysterectomy, Hx Tubal Ligation, Other - Told needs to have gallbladder removed because it's not functioning properl - Immunizations Immunizations up to date: Yes Hx Diphtheria, Pertussis, Tetanus Vaccination: Yes Review of Systems - Review of Systems Notes: Constitutional: Positive for hypothermia HENT: Negative for sore throat. Eyes: Negative for visual changes. Cardiovascular: Negative for chest pain. Respiratory: Negative for shortness of breath. Gastrointestinal: Positive for abdominal pain and vomiting Genitourinary: Positive for oliguria. Musculoskeletal: Negative for back pain. Skin: Negative for rash. Neurological: Negative for headaches, weakness or numbness. 10 point ROS negative except as marked above and in HPI. Physical Exam - Vital signs Vitals: Temp Pulse Resp BP Pulse Ox 97.2 F 92 16 155/69 H 98 10/24/17 21:41 10/24/17 21:41 10/24/17 21:41 10/24/17 21:41 10/24/17 21:41 Interpretation: Hypertensive Notes: PHYSICAL EXAMINATION: GENERAL: Ill in appearance, somewhat listless HEAD: Atraumatic, normocephalic. EYES: Pupils dilated, 5 mm but equally reactive, extraocular movements intact, sclera anicteric, conjunctiva are normal. ENT: nares patent, oropharynx clear without exudates. Profoundly dry mucous membranes. NECK: Normal range of motion, supple without lymphadenopathy LUNGS: Breath sounds clear to auscultation bilaterally and equal. No wheezes rales or rhonchi. Moderate tachypnea HEART: Irregularly irregular tachycardia without murmurs ABDOMEN: Soft, nontender, normoactive bowel sounds. No guarding, no rebound. No masses appreciated. EXTREMITIES: Normal range of motion, no pitting or edema. No cyanosis. NEUROLOGICAL: No focal neurological deficits. Moves all extremities spontaneously and on command. PSYCH: Mildly anxious, slightly listless but oriented x4 SKIN: Warm, Dry, poor skin turgor Course - Re-evaluation Re-evalutation: 10/24/17 23:57 Patient is very ill in appearance, tachycardic, diaphoretic, somewhat listless. She presents complaining of diffuse lower abdominal pain and no urine since this morning as well as multiple episodes of vomiting. My initial assessment was delayed due to the patient being in the restroom on multiple occasions. Labs are markedly abnormal showing severe renal failure with a creatinine of 10 , anion gap incalculable, bicarb less than 5, although potassium is noted to be normal. She also has a marked leukocytosis. Patient has begun on fluid resuscitation, IV bicarbonate, additional labs including lactate, venous blood gas, blood cultures, urine cultures, urinalysis and Ruby catheter with temperature probe will all be initiated immediately. The patient will be required to transfer to an alternative facility has been do not have nephrology available. Also obtain a CT of the abdomen pelvis without IV contrast to evaluate for an obstructive pathology that could be causing an acute renal failure of which the patient has no history. 10/25/17 00:54 Patients VBG shows an extremely abnormal ph at 6.58. This is remarkable particularly given that the patient is awake and talking and normotensive. She also has new onset afib. Bicarb infusion has been started. 2 amps of bicarb will also be given. Fluid resus is ongoing. We do not have nephrology available but given history and labs I do believe that patient likely requires emergent dialysis. CT pending, CXR pending. Cefepime has been given. I have contacted [facility] and have requested emergent transfer for dialysis. Awaiting discussion with 10/25/17 01:06 I have discussed with the MICU attending at [facility] who has accepted the patient in transfer. The nurse has inform me that the patient's core temperature on temperature Ruby is 91.7 and the patient's lactate has resulted at 20. I will contact them for an update of this. Vancomycin 1g (renal dosing) has been added. 10/25/17 01:28 Patient has had progressive deterioration of her blood pressure now 74 on 42. A third liter of fluids is being initiated. Patient has only had 10 cc of urine output in total. Will place a central line 10/25/17 01:51 Patient's blood pressure has continued to deteriorate. MAP has consistently fallen below 65. A right femoral line was placed without complication. This is for additional access and pressor infusion. I have called [facility] and have spokent to and updated him on the patient's new labs and need for norepi. Patient continues to mentate without difficulty. I have discussed with the MICU doctor and we have agreed to proceed with intubation at this time as patient is anticipated to continue to deteriorate. 0220 Intubation completed without difficulty. Propofol infusion started for sedation. Patient was immediately transitioned to the ventilator on the air care transport as they were already present at the time of intubation. Patient appropriate for transport. - Vital Signs Vital signs: Temp Pulse Resp BP Pulse Ox 91.9 F L 92 22 H 90/66 L 99 10/25/17 02:01 10/24/17 21:41 10/25/17 02:01 10/25/17 02:00 10/25/17 02:01 - Laboratory Result Diagrams: 10/24/17 22:20 10/24/17 22:20 Laboratory results interpreted by me: 10/24/17 10/24/17 10/24/17 22:20 22:20 22:20 WBC 27.1 H Hct 47.9 H MCHC 31.4 L RDW 14.4 H Metamyelocytes % 1 H Abs Neuts (Manual) 18.7 H Abs Lymphs (Manual) 7.3 H Abs Basophils (Manual) 0.3 H VBG pH VBG pCO2 VBG HCO3 Sodium 147.6 H Chloride 92 L Carbon Dioxide < 5 L* BUN 47 H Creatinine 10.87 H Est GFR ( Amer) 5 L Est GFR (Non-Af Amer) 4 L Serum Osmolality Lactic Acid Direct Bilirubin 0.5 H Urine Protein Urine Glucose (UA) Urine Ketones Urine Blood Salicylates < 1.0 L 10/24/17 10/25/17 10/25/17 22:20 00:05 00:05 WBC Hct MCHC RDW Metamyelocytes % Abs Neuts (Manual) Abs Lymphs (Manual) Abs Basophils (Manual) VBG pH 6.58 L* VBG pCO2 29.3 L VBG HCO3 2.7 L Sodium Chloride Carbon Dioxide BUN Creatinine Est GFR ( Amer) Est GFR (Non-Af Amer) Serum Osmolality 328 H Lactic Acid 20.0 H Direct Bilirubin Urine Protein Urine Glucose (UA) Urine Ketones Urine Blood Salicylates 10/25/17 00:35 WBC Hct MCHC RDW Metamyelocytes % Abs Neuts (Manual) Abs Lymphs (Manual) Abs Basophils (Manual) VBG pH VBG pCO2 VBG HCO3 Sodium Chloride Carbon Dioxide BUN Creatinine Est GFR ( Amer) Est GFR (Non-Af Amer) Serum Osmolality Lactic Acid Direct Bilirubin Urine Protein >=500 H Urine Glucose (UA) 150 H Urine Ketones TRACE H Urine Blood LARGE H Salicylates - Diagnostic Test Radiology reviewed: Image reviewed, Reports reviewed Radiology results interpreted by me: 10/25/17 03:36 Chest x-ray: No acute infiltrate or pneumothorax - EKG Interpretation by Me Additional EKG results interpreted by me: 10/25/17 03:36 Atrial fibrillation with rapid ventricular response. Rate 134. No ST elevations or depressions. QTC is 514. Procedures - Central Line Right Femoral Consent obtained: No - Emergent Central line pre-insertion: Sterile PPE donned, Chloraprep applied, Sterile drapes applied Central line lumen type: Triple Anesthetic type: 1% Lidocaine mL's of anesthesia: 3 Ultrasound guided: Yes CM at insertion site: 30 Line secured with sutures: Yes Central line post-insertion: Blood return from lumens, Biopatch applied, Sutured , Sterile dressing applied Number of attempts: 1 Complications: No - Intubation Orotracheal Airway evaluation: Normal anatomy Mallampati Classification: Class 1 Medications: Ketamine, Other - Rocuronium Intubation method: Orotracheal Blade type: Vanda Blade size: 4 Equipment used: Glidescope ETT size: 7.5 ETT secured at: Lips ETT secured at (cm): 21 Breath Sounds after Intubation: Equal End tidal CO2 confirmed: Yes Ventilator settings: SIMV Tidal volume: 400 FiO2: 60 Respirations: 26 PEEP: 5 Post Intubation Xray: Yes Intubation Complications: No complications Critical Care Note - Critical Care Note Total time excluding time spent on procedures (mins): 79 Comments: Critical care time spent obtaining history from patient or surrogate, discussions with consultants, development of treatment plan with patient or surrogate, evaluation of patient's response to treatment, examination of patient , ordering and performing treatments and interventions, ordering and review of laboratory studies, re-evaluation of patient's condition, ordering and review of radiographic studies and review of old charts Discharge - Discharge Clinical Impression: Severe sepsis, Metabolic acidosis, Lactic acidosis Acute renal failure Qualifiers: Acute renal failure type: unspecified Qualified Code(s): N17.9 - Acute kidney failure, unspecified Hypothermia Qualifiers: Encounter type: initial encounter Qualified Code(s): T68.XXXA - Hypothermia, initial encounter Condition: Critical Disposition: [facility]
[2017-10-25] MEDS ORDERED: LORAZEPAM INJ 2 MG/1 ML VIAL IV ONE (00:05)
[2017-10-25] MEDS ORDERED: SODIUM BICARBONATE 8.4% INJ 50 MEQ/50 ML DISP.SYRIN ONE ×2 (00:19→00:53)
[2017-10-25 00:47] LABS: VENOUS BLOOD BASE EXCESS -36.5 mmol/L; VENOUS BLOOD HCO3 2.7 mmol/L (20-32); VENOUS BLOOD PCO2 29.3 mmHg (35-63)
[2017-10-25 00:50] LABS: VENOUS BLOOD PH 6.58 (7.30-7.42)
--- NOTE | 2017-10-25 00:51 | EKG REPORT ---
SEVERITY:- ABNORMAL ECG - ATRIAL FIBRILLATION PROLONGED QT INTERVAL : Confirmed by: Ni Stauffer MD 25-Oct-2017 00:51:32
[2017-10-25] MEDS ORDERED: SODIUM BICARBONATE 8.4% INJ 50 MEQ/50 ML DISP.SYRIN IV ONE ×2 (00:52→06:41)
[2017-10-25 00:54] LABS: CREATINE KINASE 82 U/L (30-135)
[2017-10-25 01:03] LABS: SALICYLATE < 1.0 mg/dL (2.0-20.0)
[2017-10-25 01:06] LABS: AMORPHOUS SEDIMENT,URINE TRACE /HPF; APPEARANCE,URINE CLOUDY; BILIRUBIN,URINE NEGATIVE (NEGATIVE); COLOR,URINE YELLOW; GLUCOSE, URINE 150 mg/dL (NEGATIVE); KETONES,URINE TRACE mg/dL (NEGATIVE); LEUKOCYTE ESTERASE,URINE NEGATIVE (NEGATIVE); NITRITE,URINE NEGATIVE (NEGATIVE); PROTEIN,URINE >=500 mg/dL (NEGATIVE); URINE SPECIFIC GRAVITY 1.022; UROBILINOGEN,URINE NEGATIVE mg/dL (<2.0)
[2017-10-25] MEDS ORDERED: VANCOMYCIN HCL INJ 1000 MG VIAL IV ONE (01:06)
[2017-10-25 01:10] LABS: ALCOHOL < 10 mg/dL (NONE DETECTED)
[2017-10-25 01:19] LABS: URINE AMPHETAMINES SCREEN NEGATIVE; URINE BARBITURATES SCREEN NEGATIVE; URINE BENZODIAZEPINES SCREEN NEGATIVE; URINE COCAINE SCREEN NEGATIVE; URINE MARIJUANA (THC) SCREEN NEGATIVE; URINE METHADONE SCREEN NEGATIVE; URINE PHENCYCLIDINE SCREEN NEGATIVE
--- NOTE | 2017-10-25 01:21 | RADIOLOGY REPORT (SQ) ---
EXAM DESCRIPTION: XR CHEST 1 VIEW COMPLETED DATE/TME: 10/25/2017 00:04 CLINICAL HISTORY: sob COMPARISON: 02/02/2017 FINDINGS: Single frontal view of the chest. The cardiomediastinal silhouette has normal size and contour. No consolidation, pneumothorax, or pleural effusion. No displaced rib fractures identified. Leads overlie the chest. Upper abdominal soft tissues are unremarkable. IMPRESSION: 1. No acute pulmonary process identified.
[2017-10-25] MEDS ORDERED: DEXTROSE 5%-WATER 250 ML with NOREPINEPHRINE BITARTRATE 4 MG IV PRN ×2 (01:28)
[2017-10-25] MEDS ORDERED: NOREPINEPHRINE BITARTRATE INJ/PF 4 MG/4 ML SDV IV ONE (01:44)
--- NOTE | 2017-10-25 01:54 | RADIOLOGY REPORT (SQ) ---
EXAM DESCRIPTION: CT ABDOMEN PELVIS WITHOUT IV CONTRAST COMPLETED DATE/TME: 10/24/2017 23:53 CLINICAL HISTORY: Diffuse abdominal pain. COMPARISON: 02/20/2014 TECHNIQUE: CT of the abdomen and pelvis without IV contrast. Evaluation of the solid organs and vasculature is suboptimal due to lack of IV contrast. DLP: 507.12 mGy-cm FINDINGS: Lung Bases: The visualized lung bases are clear. Bones: No destructive bone lesions identified. Abdomen: Liver: The liver has normal size and decreased density. Gallbladder: No calcified gallstones. Spleen, Pancreas, and Adrenal Glands: Mild periadrenal inflammatory change bilaterally. The spleen and pancreas demonstrate no acute abnormalities. Kidneys: The kidneys have normal size and contour without evidence of hydronephrosis. No obstructing ureteral calculi. Vasculature: The aorta and IVC have normal caliber and position. Stomach: The stomach and duodenum have normal course. Other: No free intraperitoneal air. No free fluid or lymphadenopathy. Pelvis: Bladder: Ruby catheter in the urinary bladder. Bowel: No dilated loops of large or small bowel. Appendix: Normal appendix. Pelvis: Uterus is not enlarged. IMPRESSION: 1. Nonspecific inflammatory change adjacent to the adrenal glands. No definite hemorrhage or mass. 2. No other acute abnormalities identified. 3. Hepatic steatosis. This exam was performed according to our departmental dose-optimization program, which includes automated exposure control, adjustment of the mA and/or kV according to patient size and/or use of iterative reconstruction technique.
[2017-10-25] MEDS ORDERED: KETAMINE HCL INJ 500 MG/10 ML VIAL ONE (01:55)
[2017-10-25 02:08] VITALS: BP 90/66
[2017-10-25] MEDS ORDERED: PROPOFOL 1,000 MG/100 ML INFUS..BTL IV PRN (02:32)
--- NOTE | 2017-10-25 02:33 | RADIOLOGY REPORT (SQ) ---
EXAM DESCRIPTION: XR CHEST 1 VIEW COMPLETED DATE/TME: 10/25/2017 02:08 CLINICAL HISTORY: ET PLACEMENT COMPARISON: 10/25/2017 FINDINGS: Single frontal view of the chest. Endotracheal tube with tip 4 cm above the endy. NG tube with tip below the diaphragm. Low lung volumes. Heart is not enlarged. No consolidation, pneumothorax, or pleural effusion. No displaced rib fractures identified. Upper abdominal soft tissues are unremarkable. IMPRESSION: 1. Endotracheal tube in appropriate radiographic position.
[2017-10-25] MEDS ORDERED: ROCURONIUM BROMIDE INJ 50 MG/5 ML VIAL IV ONE (04:51)
[2017-10-25] MEDS ORDERED: KETAMINE HCL INJ 500 MG/10 ML VIAL IV ONE ×2 (04:51→06:40)
== END 2017-10-25 02:49 | disposition short-term general hospital (02) ==
LOC: ER 21:33
PROC: 0BH17EZ Insertion of Endotracheal Airway into Trachea, Via Natural or Artificial Opening (ICD-10-PCS; principal; 2017-10-24)
PROC: 06HM33Z Insertion of Infusion Device into Right Femoral Vein, Percutaneous Approach (ICD-10-PCS; 2017-10-24)
DX: A41.9 Sepsis, unspecified organism (principal); R65.20 Severe sepsis without septic shock; E87.2 Acidosis; N17.9 Acute kidney failure, unspecified; T68.XXXA Hypothermia, initial encounter; R10.84 Generalized abdominal pain; R11.2 Nausea with vomiting, unspecified; R34 Anuria and oliguria; F17.200 Nicotine dependence, unspecified, uncomplicated; I10 Essential (primary) hypertension; E11.9 Type 2 diabetes mellitus without complications
CPT/HCPCS: 93005; 99291; 99292; 36415; 87040; 87086; 80307 ×3; 82550; 84702; 83690; 83930; 85025; 80053; 81001; 82803; 83605; 71045; 74176; 93010; 31500; 36556; J3490 ×4; J2765; J2270; J2060; J7060; J7120; J0692; 87077

== ENCOUNTER 2017-11-26 13:07 | Emergency (ER) | payer SELFPAY ==
[2017-11-26] MEDS ORDERED: ONDANSETRON HCL INJ/PF 4 MG/2 ML SDV IV ONE (13:30)
[2017-11-26] MEDS ORDERED: KETOROLAC TROMETHAMINE INJ/PF 30 MG/1 ML SDV IV ONE (13:30)
--- NOTE | 2017-11-26 13:32 | ER Document Report ---
ED Medical Screen (RME) - General Chief Complaint: Flank Pain Stated Complaint: SIDE AND BACK PAIN Time Seen by Provider: 11/26/17 13:22 Notes: 47 years old female with history of long-standing diabetes, presents today with diffuse abdominal pain flank pain and groin pain. Associated with frequency of urination no dysuria. Denies any fever chills but nauseous no vomiting. Irregular bowel habits. Took oxycodone this morning. TRAVEL OUTSIDE OF THE [place] IN LAST 30 DAYS: No - Related Data Allergies/Adverse Reactions: ciprofloxacin [From Cipro] Allergy (Verified 11/26/17 13:14) ciprofloxacin HCl [From Cipro] Allergy (Verified 11/26/17 13:14) Past Medical History - Past Medical History Cardiac Medical History: Reports: Hx Hypercholesterolemia, Hx Hypertension, Hx Heart Murmur Endocrine Medical History: Reports: Hx Diabetes Mellitus Type 1, Hx Diabetes Mellitus Type 2 Renal/ Medical History: Reports: Hx Ovarian Cysts. 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, Reports Hx Musculoskeletal Trauma Psychiatric Medical History: Reports: Hx Anxiety, Hx Bipolar Disorder, Hx Depression Past Surgical History: Reports: Hx Dilation and Curettage, Hx Gynecologic Surgery - Ablation, Rt ovarian cyst removed left removed, coned biopsy for cervical c, Hx Hysterectomy, Hx Tubal Ligation, Other - Told needs to have gallbladder removed because it's not functioning properl - Immunizations Immunizations up to date: Yes Hx Diphtheria, Pertussis, Tetanus Vaccination: Yes Physical Exam - Vital signs Vitals: Temp Pulse Resp BP Pulse Ox 99.1 F 76 18 115/69 98 11/26/17 13:16 11/26/17 13:16 11/26/17 13:16 11/26/17 13:16 11/26/17 13:16 Course - Vital Signs Vital signs: Temp Pulse Resp BP Pulse Ox 99.1 F 76 18 115/69 98 11/26/17 13:16 11/26/17 13:16 11/26/17 13:16 11/26/17 13:16 11/26/17 13:16
--- NOTE | 2017-11-26 13:58 | RADIOLOGY REPORT (SQ) ---
EXAM DESCRIPTION: KUB/ABDOMEN (SINGLE VIEW) COMPLETED DATE/TIME: 11/26/2017 1:43 pm REASON FOR STUDY: Flank pain COMPARISON: CT abdomen pelvis 10/25/2017 Three-way abdomen series 11/23/2016 NUMBER OF VIEWS: One view. TECHNIQUE: Supine radiographic image of the abdomen acquired. LIMITATIONS: None. FINDINGS: BOWEL GAS PATTERN: Normal bowel gas pattern. No dilated loops. Moderate stool in the asce nding colon. CALCIFICATIONS: No suspicious calcifications. SOFT TISSUES: No gross mass or suggestion of organomegaly. HARDWARE: None in the abdomen. BONES: No acute fracture. No worrisome bone lesions. OTHER: No other significant finding. IMPRESSION: Moderate stool in the ascending colon. Otherwise unremarkable study. TECHNICAL DOCUMENTATION: JOB ID: [id number] [employer]- All Rights Reserved Reading location - IP/workstation name: [email or web address]
[2017-11-26 14:07] LABS: APPEARANCE,URINE CLEAR; BILIRUBIN,URINE NEGATIVE (NEGATIVE); COLOR,URINE YELLOW; GLUCOSE, URINE 50 mg/dL (NEGATIVE); KETONES,URINE TRACE mg/dL (NEGATIVE); LEUKOCYTE ESTERASE,URINE TRACE (NEGATIVE); NITRITE,URINE NEGATIVE (NEGATIVE); PROTEIN,URINE NEGATIVE (NEGATIVE); URINE SPECIFIC GRAVITY 1.025
[2017-11-26 14:31] LABS: ABSOLUTE EOSINOPHILS # (AUTO) 0.1 10^3/uL (0.0-0.6); ABSOLUTE LYMPHOCYTES (AUTO) 1.6 10^3/uL (0.5-4.7); ABSOLUTE MONOCYTES (AUTO) 0.3 10^3/uL (0.1-1.4); ABSOLUTE NEUT (AUTO) 2.5 10^3/uL (1.7-8.2); BASOPHILS % (AUTO) 0.5 % (0-2); EOSINOPHILS % (AUTO) 1.4 % (0-6); HEMATOCRIT 32.3 % (36.0-47.0); LYMPHOCYTES % (AUTO) 36.1 % (13-45); MEAN CORPUSCULAR HEMOGLOBIN 29.8 pg (27.0-33.4); MEAN CORPUSCULAR HGB CONC 34.1 g/dL (32.0-36.0); MEAN CORPUSCULAR VOLUME 87 fl (80-97); MONOCYTES % (AUTO) 7.1 % (3-13); PLATELET COUNT 176 10^3/uL (150-450); RED BLOOD COUNT 3.69 10^6/uL (3.72-5.28); SEGMENTED NEUTROPHILS % (AUTO) 54.9 % (42-78); TOTAL CELLS COUNTED % (AUTO) 100 %; WHITE BLOOD COUNT 4.5 10^3/uL (4.0-10.5)
[2017-11-26 14:50] LABS: ALANINE AMINOTRANSFERASE 14 U/L (9-52); ALBUMIN 3.2 g/dL (3.5-5.0); ALKALINE PHOSPHATASE 58 U/L (38-126); ANION GAP 12 (5-19); ASPARTATE AMINO TRANSFERASE 25 U/L (14-36); BILIRUBIN,DIRECT 0.3 mg/dL (0.0-0.4); BILIRUBIN,TOTAL 0.3 mg/dL (0.2-1.3); BLOOD UREA NITROGEN 14 mg/dL (7-20); CALCIUM 8.6 mg/dL (8.4-10.2); CARBON DIOXIDE 29 mmol/L (22-30); CHLORIDE 104 mmol/L (98-107); GLUCOSE 136 mg/dL (75-110); LIPASE 54.5 U/L (23-300); POTASSIUM 4.1 mmol/L (3.6-5.0); SODIUM 144.6 mmol/L (137-145); TOTAL PROTEIN 5.5 g/dL (6.3-8.2)
[2017-11-26] MEDS ORDERED: NORMAL SALINE 1000 ML 1,000 ML IV ONE ×2 (14:54→15:13)
--- NOTE | 2017-11-26 15:27 | ER Document Report ---
ED GI/ - General Chief Complaint: Flank Pain Stated Complaint: SIDE AND BACK PAIN Time Seen by Provider: 11/26/17 13:22 Mode of Arrival: Ambulatory Information source: Patient Notes: Patient presents complaining of low back and lateral side pain that wraps around to the her abdomen for the past 3 days. Patient does report some urinary frequency but denies any dysuria. Patient denies any fever vaginal bleeding or discharge. Patient does report nausea with vomiting 5 days ago. Patient denies any nausea and vomiting since then. Patient does report similar low back pain symptoms a month ago, at that visit she had acute renal failure, sepsis and was transferred divided for emergent dialysis. Patient states that she has not followed up with a primary doctor or nephrology since being discharged from the hospital a month ago. TRAVEL OUTSIDE OF THE [place] IN LAST 30 DAYS: No - HPI Patient complains to provider of: Abdominal pain, Flank pain. No: Dysuria, Vomiting Onset: Other - 3 days Timing/Duration: Persistent Quality of pain: Sharp Pain Level: 3 Location: Other - Low back pain the wraps around lateral sides to the abdomen Vaginal bleeding (Compared to normal period): None Associated symptoms: Urinary frequency. denies: Diarrhea, Fever, Nausea, Urinary hesitancy, Vaginal discharge, Vomiting Exacerbated by: Denies Relieved by: Denies Similar symptoms previously: Yes - 1 month ago Recently seen / treated by doctor: No - Related Data Allergies/Adverse Reactions: ciprofloxacin [From Cipro] Allergy (Verified 11/26/17 13:14) ciprofloxacin HCl [From Cipro] Allergy (Verified 11/26/17 13:14) Past Medical History - General Information source: Patient - Social History Smoking Status: Current Every Day Smoker Smoking Education Provided: Yes Frequency of alcohol use: None Drug Abuse: None Occupation: None Lives with: Family Family History: Reviewed & Not Pertinent, Arthritis, DM, Hyperlipidemia, Hypertension, Malignancy Patient has suicidal ideation: No Patient has homicidal ideation: No - Past Medical History Cardiac Medical History: Reports: Hx Hypercholesterolemia, Hx Hypertension, Hx Heart Murmur Endocrine Medical History: Reports: Hx Diabetes Mellitus Type 1, Hx Diabetes Mellitus Type 2 Renal/ Medical History: Reports: Hx Ovarian Cysts. 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 denies: Fever, Recent illness EENT: No symptoms reported Cardiovascular: No symptoms reported. denies: Chest pain, Dizziness Respiratory: No symptoms reported. denies: Cough, Short of breath Gastrointestinal: Abdominal pain - Lateral side pain, Vomiting - 5 days ago, none since Genitourinary: Frequency, Flank pain. denies: Dysuria Female Genitourinary: No symptoms reported Musculoskeletal: Back pain Skin: No symptoms reported Hematologic/Lymphatic: No symptoms reported Neurological/Psychological: No symptoms reported Physical Exam - Vital signs Vitals: Temp Pulse Resp BP Pulse Ox 99.1 F 76 18 115/69 98 11/26/17 13:16 11/26/17 13:16 11/26/17 13:16 11/26/17 13:16 11/26/17 13:16 - General General appearance: Appears well, Alert In distress: None - HEENT Head: Normocephalic, Atraumatic Eyes: Normal Nasal: Normal Mouth/Lips: Normal Mucous membranes: Normal Neck: Normal, Supple. No: Lymphadenopathy - Respiratory Respiratory status: No respiratory distress Chest status: Nontender Breath sounds: Normal. No: Rales, Rhonchi, Stridor, Wheezing Chest palpation: Normal - Cardiovascular Rhythm: Regular Heart sounds: S1 appreciated, S2 appreciated Murmur: No - Abdominal Inspection: Normal Distension: No distension Tenderness: Tender - Lateral side tenderness. No: McBurney's point, Maxwell's sign, Guarding Organomegaly: No organomegaly - Back Back: Tender - Lower back, lateral side tenderness. No: CVA tenderness, Vertebra tenderness - Extremities General upper extremity: Normal inspection, Normal strength General lower extremity: Normal inspection, Normal strength - Neurological Neuro grossly intact: Yes Cognition: Normal Katherine Coma Scale Eye Opening: Spontaneous [place] Coma Scale Verbal: Oriented [place] Coma Scale Motor: Obeys Commands Katherine Coma Scale Total: 15 - Psychological Associated symptoms: Normal affect, Normal mood - Skin Skin Temperature: Warm Skin Moisture: Dry Skin Color: Normal Course - Re-evaluation Re-evalutation: 11/26/17 15:[address] Martinez regarding patient presentation and diagnostic evaluation. Reviewed patient's previous ER visit as well as diagnostic test results. Advises renal ultrasound and agrees with plan for IV hydration. 11/26/17 16:53 No findings worrisome for any obstructive uropathy. Patient with mildly elevated BUN and creatinine. Patient hydrated here in the ER and encouraged to follow-up with her primary doctor on Wednesday to have her renal function studies rechecked. Patient also encouraged to follow-up with nephrology for further evaluation. Patient's abdomen soft, nontender. Patient nontoxic in appearance. Patient presents with abdominal pain without signs of peritonitis or other life-threatening or serious etiology. Patient appears stable for discharge and has been instructed to return immediately if the symptoms worsen in any way, or in 8-12 hours if not improved for reevaluation. The patient has been instructed to return if the symptoms worsen or change in any way. 11/26/17 18:29 - Vital Signs Vital signs: Temp Pulse Resp BP Pulse Ox 98.5 F 67 16 120/71 99 11/26/17 17:15 11/26/17 17:15 11/26/17 17:15 11/26/17 17:15 11/26/17 17:15 - Laboratory Result Diagrams: 11/26/17 14:10 11/26/17 14:10 Laboratory results interpreted by me: 11/26/17 11/26/17 11/26/17 13:45 14:10 14:10 RBC 3.69 L Hgb 11.0 L Hct 32.3 L Creatinine 1.34 H Est GFR ( Amer) 51 L Est GFR (Non-Af Amer) 42 L Glucose 136 H Total Protein 5.5 L Albumin 3.2 L Urine Glucose (UA) 50 H Urine Ketones TRACE H Urine Urobilinogen 4.0 H Ur Leukocyte Esterase TRACE H 11/26/17 16:53 Labs- Entire Visit 11/26/17 11/26/17 11/26/17 13:45 14:10 14:10 WBC 4.5 RBC 3.69 L Hgb 11.0 L Hct 32.3 L MCV 87 MCH 29.8 MCHC 34.1 RDW 14.0 Plt Count 176 Seg Neutrophils % 54.9 Lymphocytes % 36.1 Monocytes % 7.1 Eosinophils % 1.4 Basophils % 0.5 Absolute Neutrophils 2.5 Absolute Lymphocytes 1.6 Absolute Monocytes 0.3 Absolute Eosinophils 0.1 Absolute Basophils 0.0 Sodium 144.6 Potassium 4.1 Chloride 104 Carbon Dioxide 29 Anion Gap 12 BUN 14 Creatinine 1.34 H Est GFR ( Amer) 51 L Est GFR (Non-Af Amer) 42 L Glucose 136 H Calcium 8.6 Total Bilirubin 0.3 Direct Bilirubin 0.3 Neonat Total Bilirubin Not Reportable Neonat Direct Bilirubin Not Reportable Neonat Indirect Bili Not Reportable AST 25 ALT 14 Alkaline Phosphatase 58 Total Protein 5.5 L Albumin 3.2 L Lipase 54.5 Urine Color YELLOW Urine Appearance CLEAR Urine pH 5.0 Ur Specific [place] 1.025 Urine Protein NEGATIVE Urine Glucose (UA) 50 H Urine Ketones TRACE H Urine Blood NEGATIVE Urine Nitrite NEGATIVE Urine Bilirubin NEGATIVE Urine Urobilinogen 4.0 H Ur Leukocyte Esterase TRACE H Urine WBC (Auto) 3 Urine RBC (Auto) 1 Squamous Epi Cells Auto 2 Urine Mucus (Auto) RARE Urine Ascorbic Acid NEGATIVE 11/26/17 18:29 Reviewed diagnostic test results from previous ER visit - Diagnostic Test Radiology reviewed: Image reviewed, Reports reviewed - Reviewed radiology reports from previous ER visit Discharge - Discharge Clinical Impression: Side pain, Renal function test abnormal Abdominal pain Qualifiers: Abdominal location: unspecified location Qualified Code(s): R10.9 - Unspecified abdominal pain Constipation Qualifiers: Constipation type: unspecified constipation type Qualified Code(s): K59.00 - Constipation, unspecified Condition: Stable Disposition: HOME, SELF-CARE Instructions: Abdominal Pain ([facility]), Constipation ([facility]) Additional Instructions: Return immediately for any new or worsening symptoms Followup with your primary care provider, call tomorrow to make a followup appointment. You need to have your renal function test repeated in the next 3- 4 days. Stay well hydrated. Follow-up with nephrology for further evaluation. Call Wednesday for an appointment Prescriptions: Dicyclomine HCl [Bentyl 20 mg Tablet] 20 mg PO QID PRN #12 tablet PRN Reason: Polyethylene Glycol 3350 [Miralax] 17 gm PO DAILY PRN #119 powder PRN Reason: Forms: Smoking Cessation Education Referrals: VENKAT EVANS MD [ACTIVE STAFF] - Follow up as needed SHARON CHRIS DO [NO LOCAL MD] - Follow up in 3-5 days Christiano BOYKIN MD [ACTIVE STAFF] - Follow up in 3-5 days
--- NOTE | 2017-11-26 16:38 | RADIOLOGY REPORT (SQ) ---
EXAM DESCRIPTION: U/S RETROPERITON (RENAL/AORTA) COMPLETED DATE/TIME: 11/26/2017 4:30 pm REASON FOR STUDY: low back, side pain that rad to abd COMPARISON: CT abdomen pelvis 10/25/2017 TECHNIQUE: Dynamic and static grayscale images acquired of the kidneys and bladder and recorded on P ACS. Additional selected color Doppler and spectral images recorded. LIMITATIONS: Incompletely distended urinary bladder FINDINGS: RIGHT KIDNEY: Normal size, 10.5 cm in length. Normal echogenicity. No solid or suspicious masses. No hydronephrosis. No calcifications. LEFT KIDNEY: Normal size, 10.5 cm in length. Normal echogenicity. No solid or suspicious masses. No hydronephrosis. No calcifications. BLADDER: Decompressed, not well seen OTHER FINDINGS: No other significant finding. IMPRESSION: No hydronephrosis. TECHNICAL DOCUMENTATION: JOB ID: [id number] [employer]- All Rights Reserved Reading location - IP/workstation name: [email or web address]
[2017-11-26] MEDS ORDERED: DICYCLOMINE HCL 20 MG TABLET PO ONE (16:51)
[2017-11-26 17:16] VITALS: BP 120/71
== END 2017-11-26 17:14 | disposition home or self-care (01) ==
LOC: ER 13:07
DX: K59.00 Constipation, unspecified (principal); M54.5 Low back pain; R10.9 Unspecified abdominal pain; R35.0 Frequency of micturition; R94.4 Abnormal results of kidney function studies; F17.200 Nicotine dependence, unspecified, uncomplicated; I10 Essential (primary) hypertension; E11.9 Type 2 diabetes mellitus without complications; Z86.19 Personal history of other infectious and parasitic diseases; Z88.1 Allergy status to other antibiotic agents; Z87.42 Personal history of other diseases of the female genital tract; Z85.41 Personal history of malignant neoplasm of cervix uteri; Z90.710 Acquired absence of both cervix and uterus; Z98.51 Tubal ligation status
CPT/HCPCS: 99284; 96361; 96374; 96375; 36415; 83690; 85025; 80053; 81001; 74018; 76770; J3490; J1885; J2405; J7030

== ENCOUNTER 2017-12-01 14:57 | Emergency (ER) | payer SELFPAY ==
--- NOTE | 2017-12-01 15:54 | ER Document Report ---
ED Medical Screen (RME) - General Chief Complaint: Low Back Pain Stated Complaint: BACK PAIN Time Seen by Provider: 12/01/17 15:42 Mode of Arrival: Ambulatory Information source: Patient Notes: This is a 47-year-old female with a history of hypertension and diabetes who had a hospitalization in October 24 in [place] after developing acute renal failure requiring ventilation at that time. Patient was hospitalized from 24 October to the . She states that at that time she was having abdominal pain. Patient presented on 26 November with back pain and renal function was good at that time. She comes into the emergency room with pain to the lower lumbar area. She denies any vomiting. She states that she has had increased frequency , dysuria and foul-smell in the urine TRAVEL OUTSIDE OF THE [place] IN LAST 30 DAYS: No - Related Data Allergies/Adverse Reactions: ciprofloxacin [From Cipro] Allergy (Verified 12/01/17 14:58) ciprofloxacin HCl [From Cipro] Allergy (Verified 12/01/17 14:58) Past Medical History - Social History Chew tobacco use (# tins/day): No Frequency of alcohol use: None Drug Abuse: None - Past Medical History Cardiac Medical History: Reports: Hx Hypercholesterolemia, Hx Hypertension, Hx Heart Murmur Endocrine Medical History: Reports: Hx Diabetes Mellitus Type 1, Hx Diabetes Mellitus Type 2 Renal/ Medical History: Reports: Hx Ovarian Cysts. 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, Reports Hx Musculoskeletal Trauma Psychiatric Medical History: Reports: Hx Anxiety, Hx Bipolar Disorder, Hx Depression Past Surgical History: Reports: Hx Dilation and Curettage, Hx Gynecologic Surgery - Ablation, Rt ovarian cyst removed left removed, coned biopsy for cervical c, Hx Hysterectomy, Hx Tubal Ligation, Other - Told needs to have gallbladder removed because it's not functioning properl - Immunizations Immunizations up to date: Yes Hx Diphtheria, Pertussis, Tetanus Vaccination: Yes Physical Exam - Vital signs Vitals: Temp Pulse Resp BP Pulse Ox 98.9 F 77 16 136/78 H 99 12/01/17 15:12 12/01/17 15:12 12/01/17 15:12 12/01/17 15:12 12/01/17 15:12 Course - Vital Signs Vital signs: Temp Pulse Resp BP Pulse Ox 98.9 F 77 16 136/78 H 99 12/01/17 15:12 12/01/17 15:12 12/01/17 15:12 12/01/17 15:12 12/01/17 15:12
[2017-12-01 16:23] LABS: ABSOLUTE EOSINOPHILS # (AUTO) 0.1 10^3/uL (0.0-0.6); ABSOLUTE LYMPHOCYTES (AUTO) 1.8 10^3/uL (0.5-4.7); ABSOLUTE MONOCYTES (AUTO) 0.3 10^3/uL (0.1-1.4); ABSOLUTE NEUT (AUTO) 3.9 10^3/uL (1.7-8.2); BASOPHILS % (AUTO) 0.5 % (0-2); EOSINOPHILS % (AUTO) 1.2 % (0-6); HEMATOCRIT 40.1 % (36.0-47.0); HEMOGLOBIN 13.5 g/dL (12.0-15.5); LYMPHOCYTES % (AUTO) 29.4 % (13-45); MEAN CORPUSCULAR HEMOGLOBIN 29.1 pg (27.0-33.4); MEAN CORPUSCULAR HGB CONC 33.7 g/dL (32.0-36.0); MEAN CORPUSCULAR VOLUME 86 fl (80-97); MONOCYTES % (AUTO) 4.5 % (3-13); PLATELET COUNT 209 10^3/uL (150-450); RED BLOOD COUNT 4.65 10^6/uL (3.72-5.28); RED CELL DISTRIBUTION WIDTH 14.3 % (11.5-14.0); SEGMENTED NEUTROPHILS % (AUTO) 64.4 % (42-78); TOTAL CELLS COUNTED % (AUTO) 100 %; WHITE BLOOD COUNT 6.1 10^3/uL (4.0-10.5)
[2017-12-01 16:25] LABS: APPEARANCE,URINE CLEAR; BILIRUBIN,URINE SMALL (NEGATIVE); COLOR,URINE YELLOW; GLUCOSE, URINE 50 mg/dL (NEGATIVE); KETONES,URINE TRACE mg/dL (NEGATIVE); LEUKOCYTE ESTERASE,URINE NEGATIVE (NEGATIVE); NITRITE,URINE NEGATIVE (NEGATIVE); PROTEIN,URINE NEGATIVE (NEGATIVE); URINE SPECIFIC GRAVITY 1.021
--- NOTE | 2017-12-01 16:29 | RADIOLOGY REPORT (SQ) ---
EXAM DESCRIPTION: L SPINE WHOLE COMPLETED DATE/TIME: 12/01/2017 4:15 pm REASON FOR STUDY: low back pain COMPARISON: None. NUMBER OF VIEWS: Five views including obliques. TECHNIQUE: AP, lateral, oblique, and sacral radiographic images acquired of the lumbar spine. LIMITATIONS: None. FINDINGS: MINERALIZATION: Normal. SEGMENTATION: Normal. No transitional anatomy. ALIGNMENT: Normal. VERTEBRAE: Maintained height. No fracture or worrisome bone lesion. DISCS: Preserved height. No significant osteophytes or end plate irregularity. POSTERIOR ELEMENTS: Pedicles and facets are intact. No pars defect or posterior arch defects. HARDWARE: None in the spine. PARASPINAL SOFT TISSUES: Normal. PELVIS: Intact as visualized. No fractures or worrisome bone lesions. SI joints intact. OTHER: No other significant finding. IMPRESSION: NORMAL 5 VIEW LUMBAR SPINE. TECHNICAL DOCUMENTATION: JOB ID: [id number] [employer]- All Rights Reserved Reading location - IP/workstation name: [email or web address]
[2017-12-01] MEDS ORDERED: NORMAL SALINE 1000 ML 1,000 ML IV ONE (16:30)
--- NOTE | 2017-12-01 16:30 | ER Document Report ---
ED General - General Chief Complaint: Low Back Pain Stated Complaint: BACK PAIN Time Seen by Provider: 12/01/17 15:42 Mode of Arrival: Ambulatory TRAVEL OUTSIDE OF THE [place] IN LAST 30 DAYS: No - HPI Notes: Patient is a 39-year-old female with a past medical history significant for hypertension, chronic back pain, and type II diabetes who had a hospitalization in October 24 in [place] after developing acute renal failure requiring ventilation at that time presents to the ED c/o lower abd aching, b/l low back pain, intermittent nausea, and urinary symptoms since last night. Patient was hospitalized from 24 October to the . Patient states that her current symptoms mimic that of when she went into renal failure. Patient states that she has had nausea and vomiting associated 4 since last night. Her last episode of vomiting was 5 hours ago. She did not have any hematemesis. Patient is having normal bowel movements. Patient has noted urinary frequency, urgency, and burning associated. She has not had any vaginal discharge, odor, or bleeding. Patient states that she checked her glucose this morning and it was 157. Denies any headache, fever, changes in vision/speech/mentation/hearing , URI, sore throat, chest pain, palpitations, syncope, cough, shortness of breath, wheeze, dyspnea, diarrhea, urinary retention, loss of control of b/b, numbness/tingling, saddle anesthesia, muscle paralysis/weakness, or rash. - Related Data Allergies/Adverse Reactions: ciprofloxacin [From Cipro] Allergy (Verified 12/01/17 14:58) ciprofloxacin HCl [From Cipro] Allergy (Verified 12/01/17 14:58) Past Medical History - General Information source: Patient - Social History Smoking Status: Current Some Day Smoker Chew tobacco use (# tins/day): No Frequency of alcohol use: None Drug Abuse: None Family History: Reviewed & Not Pertinent, Arthritis, DM, Hyperlipidemia, Hypertension, Malignancy Patient has suicidal ideation: No Patient has homicidal ideation: No - Past Medical History Cardiac Medical History: Reports: Hx Hypercholesterolemia, Hx Hypertension, Hx Heart Murmur Endocrine Medical History: Reports: Hx Diabetes Mellitus Type 1, Hx Diabetes Mellitus Type 2 Renal/ Medical History: Reports: Hx Ovarian Cysts. 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, Reports Hx Musculoskeletal Trauma Psychiatric Medical History: Reports: Hx Anxiety, Hx Bipolar Disorder, Hx Depression Past Surgical History: Reports: Hx Dilation and Curettage, Hx Gynecologic Surgery - Ablation, Rt ovarian cyst removed left removed, coned biopsy for cervical c, Hx Hysterectomy, Hx Tubal Ligation, Other - Told needs to have gallbladder removed because it's not functioning properl - Immunizations Immunizations up to date: Yes Hx Diphtheria, Pertussis, Tetanus Vaccination: Yes Review of Systems - Review of Systems -: Yes All other systems reviewed and negative Physical Exam - Vital signs Vitals: Temp Pulse Resp BP Pulse Ox 98.9 F 77 16 136/78 H 99 12/01/17 15:12 12/01/17 15:12 12/01/17 15:12 12/01/17 15:12 12/01/17 15:12 - Notes Notes: PHYSICAL EXAMINATION: GENERAL: Well-appearing, well-nourished and in no acute distress. A&Ox4. Answers questions appropriately. HEAD: Atraumatic, normocephalic. EYES: Pupils equal round and reactive to light, extraocular movements intact, sclera anicteric, conjunctiva are normal. ENT: Nares patent and without discharge. oropharynx clear without exudates. No tonsilar hypertrophy or erythema. Moist mucous membranes. NECK: Normal range of motion, supple without lymphadenopathy LUNGS: Breath sounds clear to auscultation bilaterally and equal. No wheezes rales or rhonchi. HEART: Regular rate and rhythm without murmurs, rubs, gallops. ABDOMEN: Soft, nondistended abdomen. No guarding, no rebound. No masses appreciated. Normal bowel sounds present. No CVA tenderness bilaterally. Non-tender throughout. Musculoskeletal: FROM to passive/active. Strength 5+/5. Back: FROM to passive/active. Strength 5+/5. No vertebral point tenderness, stepoffs, or deformities. No other bony tenderness, erythema, swelling, or ecchymosis. SLR negative b/l. + mild tenderness to the L-paraspinal mm b/l, correlates with pain described. No SI jt tenderness. No foot drop Extremities: No cyanosis, clubbing, or edema b/l. Peripheral pulses 2+. Capillary refill less than 3 seconds. NEUROLOGICAL: Normal speech, normal gait. PSYCH: Normal mood, normal affect. SKIN: Warm, Dry, normal turgor, no rashes or lesions noted. Course - Re-evaluation Re-evalutation: 12/01/17 17:31 Patient is an afebrile, well-hydrated, 47-year-old female who presents to the ED with acute on chronic paraspinal low back pain. Vitals are acceptable. PE is otherwise unremarkable for any focal neurological deficits. X-ray was unremarkable for any acute pathology. Patient was given a Lidoderm patch and fluids. Patient's abdomen is soft and nontender throughout. She has no significant tachycardia, tachypnea, or hypoxia. She is nontoxic-appearing and is tolerating p.o. without difficulties. CBC, CMP, urinalysis were unremarkable for any acute pathology. No other red flag symptoms noted. No other labs or imaging warranted at this time based on H&P. Low suspicion for any acute abdomen, meningitis, fracture, expanding/ruptured AAA, cauda equina syndrome, epidural mass lesion/abscess, herniated disc causing severe spinal stenosis, or other systemic infection at this time. Patient is aware that her condition can change from initial presentation and that she needs monitor symptoms closely for any acute changes. I will send her home with a prescription for lidoderm patches and zofran. Conservative measures otherwise for symptoms. Recheck with your PCM in 3-5 days. Return to the ED with any worsening/concerning symptoms otherwise as reviewed discharge. Patient is in agreement. - Vital Signs Vital signs: Temp Pulse Resp BP Pulse Ox 98.9 F 77 16 136/78 H 99 12/01/17 15:12 12/01/17 15:12 12/01/17 15:12 12/01/17 15:12 12/01/17 15:12 - Laboratory Result Diagrams: 12/01/17 16:05 12/01/17 16:05 Laboratory results interpreted by me: 12/01/17 12/01/17 12/01/17 16:05 16:05 16:05 RDW 14.3 H Est GFR (Non-Af Amer) 59 L Glucose 197 H Urine Glucose (UA) 50 H Urine Ketones TRACE H Urine Bilirubin SMALL H Urine Urobilinogen 2.0 H Discharge - Discharge Clinical Impression: Low back pain Qualifiers: Chronicity: acute Back pain laterality: bilateral Sciatica presence: without sciatica Qualified Code(s): M54.5 - Low back pain Nausea and vomiting Qualifiers: Vomiting type: unspecified Vomiting Intractability: non-intractable Qualified Code(s): R11.2 - Nausea with vomiting, unspecified Abdominal pain Qualifiers: Abdominal location: lower abdomen, unspecified Qualified Code(s): R10.30 - Lower abdominal pain, unspecified Condition: Stable Disposition: HOME, SELF-CARE Instructions: Antinausea Medication ([facility]), Abdominal Pain ([facility]), Low Back Pain ([facility]), Vomiting ([facility]) Additional Instructions: Maintain adequate fluid and food intake [place] diet ([employer] Bananas, rice, apples, toast, etc Zofran as needed tylenol if needed Monitor for any worsening symptoms Make sure you are staying hydrated enough to urinate and have normal BM's Ice, heat, massage, light stretches Recheck with your PCM in 2-3 days Return to the ED with any worsening symptoms and/or development of fever, headache, chest pain, palpitations, syncope, shortness of breath, trouble breathing, abdominal pain, n/v/d, blood in stool/urine, loss of control of bowel /bladder, urinary retention, muscle weakness/paralysis, saddle anesthesia, numbness/tingling, or other worsening symptoms that are concerning to you. Prescriptions: Lidocaine [Lidoderm] 1 each TP DAILY #30 adh..patch Ondansetron [Zofran Odt 4 mg Tablet] 1 - 2 tab PO Q4H PRN #15 tab.rapdis PRN Reason: For Nausea/Vomiting Forms: Elevated Blood Pressure, Smoking Cessation Education Referrals: JOAO WILSON MD [ACTIVE STAFF] - Follow up as needed
[2017-12-01 16:49] LABS: ALANINE AMINOTRANSFERASE 12 U/L (9-52); ALBUMIN 4.1 g/dL (3.5-5.0); ALKALINE PHOSPHATASE 69 U/L (38-126); ANION GAP 13 (5-19); ASPARTATE AMINO TRANSFERASE 19 U/L (14-36); BILIRUBIN,DIRECT 0.3 mg/dL (0.0-0.4); BILIRUBIN,TOTAL 0.5 mg/dL (0.2-1.3); BLOOD UREA NITROGEN 11 mg/dL (7-20); CALCIUM 9.3 mg/dL (8.4-10.2); CARBON DIOXIDE 28 mmol/L (22-30); CHLORIDE 101 mmol/L (98-107); GLUCOSE 197 mg/dL (75-110); SODIUM 141.6 mmol/L (137-145)
[2017-12-01] MEDS ORDERED: ONDANSETRON 4 MG TAB.RAPDIS PO ONE (17:25)
[2017-12-01] MEDS ORDERED: LIDOCAINE 5% (700 MG) TRANSDERMAL ADH..PATCH TP ONE (17:25)
[2017-12-01 18:08] VITALS: BP 121/76
== END 2017-12-01 18:08 | disposition home or self-care (01) ==
LOC: ER 14:57
DX: M54.5 Low back pain (principal); R10.30 Lower abdominal pain, unspecified; R11.2 Nausea with vomiting, unspecified; I10 Essential (primary) hypertension; E78.00 Pure hypercholesterolemia, unspecified; E11.9 Type 2 diabetes mellitus without complications; Z88.3 Allergy status to other anti-infective agents; Z85.41 Personal history of malignant neoplasm of cervix uteri; Z90.710 Acquired absence of both cervix and uterus
CPT/HCPCS: 99284; 96360; 36415; 87086; 85025; 80053; 81001; 72110; S0119; J7030

== ENCOUNTER 2018-01-13 16:24 | Emergency (ER) | payer SELFPAY ==
--- NOTE | 2018-01-13 17:27 | ER Document Report ---
ED Medical Screen (RME) - General Chief Complaint: Vomiting/Diarrhea Stated Complaint: LEFT ARM PAIN/VOMITING Time Seen by Provider: 01/13/18 17:17 Notes: 47-year-old female patient with onset today of nausea vomiting diarrhea x5. She has had some difficulty urinating and some abdominal pain. She states her blood sugars were running high yesterday. She states her urine does have a strong odor. She does have diabetes. There is no history of fevers. Past history significant for a severe lactic acidosis with vascular collapse in October 2017 requiring intubation, pressors, and the transport to tertiary care. I have greeted and performed a rapid initial assessment of this patient. A comprehensive ED assessment and evaluation of the patient, analysis of test results and completion of the medical decision making process will be conducted by additional ED providers. TRAVEL OUTSIDE OF THE [place] IN LAST 30 DAYS: No - Related Data Allergies/Adverse Reactions: ciprofloxacin [From Cipro] Allergy (Verified 01/13/18 16:27) ciprofloxacin HCl [From Cipro] Allergy (Verified 01/13/18 16:27) Past Medical History - Social History Drug Abuse: None - Past Medical History Cardiac Medical History: Reports: Hx Hypercholesterolemia, Hx Hypertension, Hx Heart Murmur Endocrine Medical History: Reports: Hx Diabetes Mellitus Type 1, Hx Diabetes Mellitus Type 2 - IDDM Renal/ Medical History: Reports: Hx Ovarian Cysts. 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, Reports Hx Musculoskeletal Trauma Psychiatric Medical History: Reports: Hx Anxiety, Hx Bipolar Disorder, Hx Depression Past Surgical History: Reports: Hx Dilation and Curettage, Hx Gynecologic Surgery - Ablation, Rt ovarian cyst removed left removed, coned biopsy for cervical c, Hx Hysterectomy, Hx Tubal Ligation, Other - Told needs to have gallbladder removed because it's not functioning properl - Immunizations Immunizations up to date: Yes Hx Diphtheria, Pertussis, Tetanus Vaccination: Yes Physical Exam - Vital signs Vitals: Temp Pulse BP Pulse Ox 98.8 F 66 126/76 H 100 01/13/18 16:31 01/13/18 16:31 01/13/18 16:31 01/13/18 16:31 Course - Vital Signs Vital signs: Temp Pulse Resp BP Pulse Ox 98.8 F 66 126/76 H 100 01/13/18 16:31 01/13/18 16:31 01/13/18 16:31 01/13/18 16:31
[2018-01-13 18:06] LABS: APPEARANCE,URINE CLEAR; BILIRUBIN,URINE NEGATIVE (NEGATIVE); COLOR,URINE YELLOW; GLUCOSE, URINE NEGATIVE (NEGATIVE); KETONES,URINE NEGATIVE (NEGATIVE); LEUKOCYTE ESTERASE,URINE NEGATIVE (NEGATIVE); NITRITE,URINE NEGATIVE (NEGATIVE); PROTEIN,URINE NEGATIVE (NEGATIVE); URINE SPECIFIC GRAVITY 1.027
[2018-01-13 18:11] LABS: ABSOLUTE BASOPHILS # (AUTO) 0.1 10^3/uL (0.0-0.2); ABSOLUTE LYMPHOCYTES (AUTO) 2.7 10^3/uL (0.5-4.7); ABSOLUTE MONOCYTES (AUTO) 0.5 10^3/uL (0.1-1.4); ABSOLUTE NEUT (AUTO) 6.6 10^3/uL (1.7-8.2); BASOPHILS % (AUTO) 0.5 % (0-2); EOSINOPHILS % (AUTO) 0.5 % (0-6); HEMATOCRIT 41.9 % (36.0-47.0); HEMOGLOBIN 14.3 g/dL (12.0-15.5); LYMPHOCYTES % (AUTO) 27.2 % (13-45); MEAN CORPUSCULAR HEMOGLOBIN 29.5 pg (27.0-33.4); MEAN CORPUSCULAR HGB CONC 34.2 g/dL (32.0-36.0); MEAN CORPUSCULAR VOLUME 86 fl (80-97); MONOCYTES % (AUTO) 4.8 % (3-13); PLATELET COUNT 216 10^3/uL (150-450); RED BLOOD COUNT 4.85 10^6/uL (3.72-5.28); RED CELL DISTRIBUTION WIDTH 13.2 % (11.5-14.0); TOTAL CELLS COUNTED % (AUTO) 100 %; WHITE BLOOD COUNT 9.8 10^3/uL (4.0-10.5)
[2018-01-13 18:29] LABS: VENOUS BLOOD BASE EXCESS 2.2 mmol/L; VENOUS BLOOD HCO3 29.9 mmol/L (20-32); VENOUS BLOOD PCO2 59.5 mmHg (35-63); VENOUS BLOOD PH 7.32 (7.30-7.42)
[2018-01-13 18:33] LABS: ALANINE AMINOTRANSFERASE 31 U/L (9-52); ALBUMIN 4.3 g/dL (3.5-5.0); ALKALINE PHOSPHATASE 63 U/L (38-126); ANION GAP 8 (5-19); ASPARTATE AMINO TRANSFERASE 20 U/L (14-36); BILIRUBIN,DIRECT 0.4 mg/dL (0.0-0.4); BILIRUBIN,TOTAL 0.6 mg/dL (0.2-1.3); BLOOD UREA NITROGEN 19 mg/dL (7-20); CALCIUM 9.7 mg/dL (8.4-10.2); CARBON DIOXIDE 31 mmol/L (22-30); CHLORIDE 101 mmol/L (98-107); GLUCOSE 134 mg/dL (75-110); SODIUM 139.7 mmol/L (137-145); TOTAL PROTEIN 7.3 g/dL (6.3-8.2)
--- NOTE | 2018-01-13 20:03 | ER Document Report ---
ED General - General Chief Complaint: Vomiting/Diarrhea Stated Complaint: LEFT ARM PAIN/VOMITING Time Seen by Provider: 01/13/18 17:17 Notes: Patient is a 47-year-old female who presents with a history of abdominal pain which started this morning. She states nothing makes the pain better, including Tylenol in which she tried at home. Moving around makes the pain worse. She is an insulin-dependent diabetic, and states she has had trouble bringing her sugars down recently. This morning her blood sugar was in the 180s , but last night past medical history also includes septic shock due to urinary tract infection, in which she was transferred to [facility] for treatment. She is also complains of difficulty urinating, then urinating large amounts shortly after. In regards to patient's arm pain, she states that her pain started 3 days ago. States that she has trouble lifting things sometimes, but is still able to perform ADLs. TRAVEL OUTSIDE OF THE [place] IN LAST 30 DAYS: No - Related Data Allergies/Adverse Reactions: ciprofloxacin [From Cipro] Allergy (Verified 01/13/18 16:27) ciprofloxacin HCl [From Cipro] Allergy (Verified 01/13/18 16:27) Past Medical History - Social History Smoking Status: Current Every Day Smoker Drug Abuse: None Family History: Reviewed & Not Pertinent, Arthritis, DM, Hyperlipidemia, Hypertension, Malignancy Patient has suicidal ideation: No Patient has homicidal ideation: No - Past Medical History Cardiac Medical History: Reports: Hx Hypercholesterolemia, Hx Hypertension, Hx Heart Murmur Endocrine Medical History: Reports: Hx Diabetes Mellitus Type 1, Hx Diabetes Mellitus Type 2 - IDDM Renal/ Medical History: Reports: Hx Ovarian Cysts. 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, Reports Hx Musculoskeletal Trauma Psychiatric Medical History: Reports: Hx Anxiety, Hx Bipolar Disorder, Hx Depression Past Surgical History: Reports: Hx Dilation and Curettage, Hx Gynecologic Surgery - Ablation, Rt ovarian cyst removed left removed, coned biopsy for cervical c, Hx Hysterectomy, Hx Tubal Ligation, Other - Told needs to have gallbladder removed because it's not functioning properl - Immunizations Immunizations up to date: Yes Hx Diphtheria, Pertussis, Tetanus Vaccination: Yes Review of Systems - Review of Systems Constitutional: No symptoms reported EENT: No symptoms reported Cardiovascular: See HPI Respiratory: No symptoms reported Gastrointestinal: See HPI Genitourinary: No symptoms reported Female Genitourinary: No symptoms reported Musculoskeletal: See HPI Skin: No symptoms reported Hematologic/Lymphatic: No symptoms reported Neurological/Psychological: No symptoms reported Physical Exam - Vital signs Vitals: Temp Pulse BP Pulse Ox 98.8 F 66 126/76 H 100 01/13/18 16:31 01/13/18 16:31 01/13/18 16:31 01/13/18 16:31 - General General appearance: Appears well In distress: None - Respiratory Respiratory status: No respiratory distress Chest status: Nontender Breath sounds: Normal Chest palpation: Normal - Cardiovascular Pulses: Normal: Brachial, Dorsalis pedis - Abdominal Distension: No distension Bowel sounds: Normal Tenderness: Tender - Neurological Cognition: Normal Orientation: AAOx4 Katherine Coma Scale Eye Opening: Spontaneous Katherine Coma Scale Verbal: Oriented Katherine Coma Scale Motor: Obeys Commands [place] Coma Scale Total: 15 Course - Re-evaluation Re-evalutation: 01/13/18 20:03 Upon re-evaluation of patient's labs, urinalysis is unremarkable, excluding a urinary tract infection which the patient was worried she was having one again. She has a history of tubal ligation and has not had a menstrual cycle in many years. Lipase and right quadrant ultrasound have been ordered. Differential diagnosis at this time includes pancreatitis, cholecystitis, cholelithiasis, and diverticulitis. I do not suspect any life-threatening etiology at this time. 01/13/18 23:53 Patient was reevaluated and she states she continues to have diffuse abdominal pain. Her right upper quadrant ultrasound was unremarkable. Her next options are to go home and see if her abdominal pain gets better or have a CT of the abdomen to rule out any acute abdominal pathology. The risks and benefits to a CT scan were discussed in depth with the patient. She has decided she would like the CT to possibly determine the cause of her abdominal pain. 01/14/18 01:[address] results have been reviewed by myself, and it shows mild jejunal wall thickening. These results have been discussed with patient. After the results were shared with the patient, the patient admitted that she has been under a great deal of stress due to trying to leave her and divorce him. Verbal discharge instructions were given to the patient and she was educated on how emotional stress can affect physical health. Patient understands instructions and will follow-up as needed. - Vital Signs Vital signs: Temp Pulse Resp BP Pulse Ox 98.8 F 66 126/76 H 100 01/13/18 16:31 01/13/18 16:31 01/13/18 16:31 01/13/18 16:31 - Laboratory Result Diagrams: 01/13/18 17:55 01/13/18 17:55 Laboratory results interpreted by me: 01/13/18 01/13/18 01/13/18 17:42 17:55 17:55 Carbon Dioxide 31 H Est GFR (Non-Af Amer) 57 L Glucose 134 H Hemoglobin A1c % 7.4 H Urine Urobilinogen 2.0 H Discharge - Discharge Clinical Impression: Abdominal pain Qualifiers: Abdominal location: generalized Qualified Code(s): R10.84 - Generalized abdominal pain Disposition: HOME, SELF-CARE Additional Instructions: You have been seen today in the emergency department due to abdominal pain. Your CAT scan shows jejunal wall thickening, which is not life-threatening. Please take Pepcid 40 mg twice a day to help coat your gastrointestinal system. You may start with clear liquids and advance your diet as tolerated. You have also been sent home with Zofran, an anti-nausea medication, please take this medication as needed for nausea. If you feel your abdominal pain is getting worse, you develop a fever, or have any concern that is worrisome to you , please return to the emergency department as soon as possible for further evaluation.
[2018-01-13] MEDS ORDERED: MORPHINE SULFATE 10 MG/ML INJ IV ONE (20:17)
[2018-01-13] MEDS ORDERED: ONDANSETRON HCL INJ/PF 4 MG/2 ML SDV IV ONE (20:18)
--- NOTE | 2018-01-13 23:00 | RADIOLOGY REPORT (SQ) ---
NAME: JOE PRICE PROCEDURE: US ABDOMEN LIMITED ORDER DATE: 01/13/2018 8:19 PM CDT ACCESSION NUMBER: [id number] Clinical History: Abdominal pain Indication: Same as above Comparison: None . Technique: The study was done on 01/13/2018 at 8:40 PM Sue scale evaluation of the right upper quadrant of the abdomen was done ultrasonographically along with limited color Doppler evaluation Findings: The gallbladder wall thickness is normal and measures 1.9 mm. There is no visualization of sludge or gallstones in the gallbladder. There is no pericholecystic fluid. There is no ultrasonographically positive Maxwell's sign. The common duct is normal in transverse diameter and measures 4.4 mm. There is no intraductal common duct calculus. The liver measures 17.5 centimeters in length. There are no focal liver lesions. There is no intrahepatic biliary dilatation. The main portal vein is of normal caliber and shows normal hepatopedal blood flow. The hepatic veins are patent. The pancreas is unremarkable . The right kidney measures 10.9 cm in length. There is no hydronephrosis or nephrolithiasis in the right kidney. There is no documented ascitic fluid in the evaluated right upper quadrant of the abdomen. The visualized portion of the abdominal aorta and the inferior vena cava are unremarkable. There is no documented right-sided pleural effusion. Impression: Unremarkable ultrasound of the right upper quadrant of the abdomen Location of Interpretation: Teler[facility]iology
--- NOTE | 2018-01-14 00:42 | RADIOLOGY REPORT (SQ) ---
EXAM DESCRIPTION: CT ABDOMEN PELVIS WITH IV CONTRAST COMPLETED DATE/TME: 01/13/2018 23:52 CLINICAL HISTORY: Diffuse abdominal pain. COMPARISON: 10/25/2017 TECHNIQUE: CT of the abdomen and pelvis performed following IV administration of 80 mL of Omnipaque 350. DLP: 1040.86 mGycm FINDINGS: Lung Bases: The visualized lung bases are clear. Bones: No destructive bone lesions identified. Degenerative change of the spine. Abdomen: Liver: The liver has normal size and density. No intrahepatic mass or biliary dilatation. Gallbladder: No calcified gallstones. Spleen, Pancreas, and Adrenal Glands: The spleen, pancreas, and adrenal glands are unremarkable. Kidneys: The kidneys have normal size and contour without evidence of solid mass or hydronephrosis. Bosniak class I right renal cyst. Vasculature: Aortoiliac atherosclerosis. IVC is unremarkable. The portal vein is patent. The proximal visceral and renal arteries are patent. Stomach: The stomach and duodenum have normal course. Other: No free intraperitoneal air. No free fluid or lymphadenopathy. Pelvis: Bladder: Urinary bladder is unremarkable. Bowel: No dilated loops of large or small bowel. Mild diffuse wall thickening of the jejunum. Appendix: Normal appendix. Pelvis: Uterus is not enlarged. IMPRESSION: 1. Mild wall thickening of the jejunum. These findings could be seen with nonspecific enteritis. This exam was performed according to our departmental dose-optimization program, which includes automated exposure control, adjustment of the mA and/or kV according to patient size and/or use of iterative reconstruction technique.
[2018-01-14] MEDS ORDERED: ONDANSETRON ODT 4 MG TAB (6 TAB/ER DISP) PO PRN (02:00)
[2018-01-14 02:13] VITALS: BP 122/81
== END 2018-01-14 02:13 | disposition home or self-care (01) ==
LOC: ER 16:24
DX: R10.84 Generalized abdominal pain (principal); R11.10 Vomiting, unspecified; R19.7 Diarrhea, unspecified; F17.200 Nicotine dependence, unspecified, uncomplicated; E78.00 Pure hypercholesterolemia, unspecified; I10 Essential (primary) hypertension; E11.9 Type 2 diabetes mellitus without complications; Z88.3 Allergy status to other anti-infective agents; Z90.710 Acquired absence of both cervix and uterus
CPT/HCPCS: 99284; 96374; 96375; 36415; 83690; 85025; 80053; 81001; 83036; 82803; 76705; 74177; J2270; J2405

== ENCOUNTER 2018-12-09 10:50 | Emergency (ER) | payer SELFPAY ==
[2018-12-09 11:55] LABS: APPEARANCE,URINE CLEAR; BILIRUBIN,URINE NEGATIVE (NEGATIVE); COLOR,URINE YELLOW; GLUCOSE, URINE >=500 mg/dL (NEGATIVE); KETONES,URINE NEGATIVE (NEGATIVE); LEUKOCYTE ESTERASE,URINE NEGATIVE (NEGATIVE); NITRITE,URINE NEGATIVE (NEGATIVE); PROTEIN,URINE NEGATIVE (NEGATIVE); URINE SPECIFIC GRAVITY 1.027; UROBILINOGEN,URINE NEGATIVE mg/dL (<2.0)
[2018-12-09] MEDS ORDERED: DIPH/PERTUSS(ACELL)/TETANUS VAC/PF 0.5 ML SYR (>=10YO) IM ONE (12:10)
--- NOTE | 2018-12-09 12:21 | ER Document Report ---
HPI - HPI Patient complains to provider of: hand burn, dysuria Time Seen by Provider: 12/09/18 12:04 Onset: Other - 3 days Onset/Duration: Persistent Quality of pain: Burning Pain Level: 3 Context: Patient presents complaining of burn to right hand that is been there for the past 3 days. Patient also reports some dysuria. Patient denies any fever nausea or vomiting. Patient uncertain when her last tetanus immunization was. Patient denies any vaginal bleeding or discharge or any concern about STD. Associated Symptoms: Other - Burn to right hand, dysuria. denies: Fever, Nausea, Vomiting Exacerbated by: Denies Relieved by: Denies Similar symptoms previously: Yes Recently seen / treated by doctor: No - ROS ROS below otherwise negative: Yes Systems Reviewed and Negative: Yes All other systems reviewed and negative - CONSTITUTIONAL Constitutional: DENIES: Fever, Chills - GASTROINTESTINAL Gastrointestinal: DENIES: Abdominal Pain, Nausea, Patient vomiting - URINARY Urinary: REPORTS: Dysuria. DENIES: Urgency, Frequency - REPRODUCTIVE Reproductive: DENIES: : - MUSCULOSKELETAL Musculoskeletal: DENIES: Extremity pain, Back Pain - DERM Skin Color: Normal Skin Problems: Burn Past Medical History - General Information source: Patient - Social History Smoking Status: Current Every Day Smoker Smoking Education Provided: Yes Frequency of alcohol use: None Drug Abuse: None Occupation: None Family History: Reviewed & Not Pertinent, Arthritis, DM, Hyperlipidemia, Hypertension, Malignancy - Past Medical History Cardiac Medical History: Reports: Hx Hypercholesterolemia, Hx Hypertension, Hx Heart Murmur Endocrine Medical History: Reports: Hx Diabetes Mellitus Type 1, Hx Diabetes Mellitus Type 2 - IDDM Renal/ Medical History: Reports: Hx Ovarian Cysts. 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, Reports Hx Musculoskeletal Trauma Psychiatric Medical History: Reports: Hx Anxiety, Hx Bipolar Disorder, Hx Depression Past Surgical History: Reports: Hx Dilation and Curettage, Hx Gynecologic Surgery - Ablation, Rt ovarian cyst removed left removed, coned biopsy for cervical c, Hx Hysterectomy, Hx Tubal Ligation, Other - Told needs to have gallbladder removed because it's not functioning properl - Immunizations Immunizations up to date: Yes Hx Diphtheria, Pertussis, Tetanus Vaccination: Yes Vertical Provider Document - CONSTITUTIONAL Agree With Documented VS: Yes Exam Limitations: No Limitations General Appearance: WD/WN, No Apparent Distress - INFECTION CONTROL TRAVEL OUTSIDE OF THE [place] IN LAST 30 DAYS: No - HEENT HEENT: Atraumatic, Normocephalic - NECK Neck: Normal Inspection, Supple - RESPIRATORY Respiratory: Breath Sounds Normal, No Respiratory Distress - CARDIOVASCULAR Cardiovascular: Regular Rate, Regular Rhythm - GI/ABDOMEN Gastrointestinal: Abdomen Soft, Abdomen Non-Tender - BACK Back: Normal Inspection - MUSCULOSKELETAL/EXTREMETIES Musculoskeletal/Extremeties: MAEW, FROM - NEURO Level of Consciousness: Awake, Alert, Appropriate Motor/Sensory: No Motor Deficit, No Sensory Deficit - DERM Integumentary: Warm, Dry Notes: Superficial burn to the dorsal aspect of right hand. No surrounding erythema. Course - Re-evaluation Re-evalutation: 12/09/18 12:22 Patient with no findings worrisome for UTI at this time. Offered patient pelvic examination to rule out any sexually transmitted infection or yeast infection that may be giving her urinary symptoms. Patient declined at this time. Patient denies any elevation in her blood sugars recently. - Vital Signs Vital signs: Temp Pulse Resp BP Pulse Ox 98.0 F 62 18 99/65 L 97 12/09/18 11:20 12/09/18 11:20 12/09/18 11:20 12/09/18 11:20 12/09/18 11:20 - Laboratory Laboratory results interpreted by me: 12/09/18 11:07 Urine Glucose (UA) >=500 H Discharge - Discharge Clinical Impression: Urinary symptom or sign Burn of hand Qualifiers: Encounter type: initial encounter Burn of hand location: dorsum Laterality: right Burn degree: partial thickness (2nd degree) Qualified Code(s): T23.261A - Burn of second degree of back of right hand, initial encounter Condition: Stable Disposition: HOME, SELF-CARE Instructions: Bello ([facility]), Tetanus Immunization Given ([facility]) Additional Instructions: Return immediately for any new or worsening symptoms Followup with your primary care provider, call tomorrow to make a followup appointment Apply topical antibiotic such as bacitracin or lotion such as Cetaphil, Aquaphor or Lubriderm to burn. Monitor for any infection such as redness increased pain or purulent drainage. Forms: Smoking Cessation Education Referrals: [facility] [Provider Group] - Follow up as needed
[2018-12-09 12:28] VITALS: BP 102/54
== END 2018-12-09 12:32 | disposition home or self-care (01) ==
LOC: ER 10:50
DX: T23.261A Burn of second degree of back of right hand, initial encounter (principal); X58.XXXA Exposure to other specified factors, initial encounter; R30.0 Dysuria; F17.200 Nicotine dependence, unspecified, uncomplicated; Z23 Encounter for immunization; E78.00 Pure hypercholesterolemia, unspecified; I10 Essential (primary) hypertension; E11.9 Type 2 diabetes mellitus without complications; Z85.41 Personal history of malignant neoplasm of cervix uteri; Z90.710 Acquired absence of both cervix and uterus
CPT/HCPCS: 81001; 90471; 90715; 99283

== ENCOUNTER 2019-01-09 09:56 | Emergency (ER) | payer SELFPAY ==
[2019-01-09 10:12] VITALS: BP 105/71
[2019-01-09] MEDS ORDERED: LIDOCAINE 1% INJ-PF (10 MG/ML) 30 ML SDV INJ ONE (10:20)
--- NOTE | 2019-01-09 10:20 | ER Document Report ---
ED Medical Screen (RME) - General Chief Complaint: Abscess Stated Complaint: RIGHT LEG PAIN Time Seen by Provider: 01/09/19 10:18 TRAVEL OUTSIDE OF THE [place] IN LAST 30 DAYS: No - HPI Notes: 01/09/19 10:19 Patient is a 48-year-old female with a history of MRSA, hypertension, diabetes who presents complaining of possible abscess to her right medial proximal thigh over the past couple days. I have treated and performed a rapid initial assessment of this patient. A comprehensive ED assessment and evaluation of the patient, analysis of test results and completion of medical decision making process will be conducted by additional ED providers. PHYSICAL EXAMINATION: GENERAL: Well-appearing, well-nourished and in no acute distress. A&Ox4. Answers questions appropriately. Rt leg: + fluctuant, erythemic, tender area with discharge present. Consistent with abscess. no streaks - Related Data Allergies/Adverse Reactions: ciprofloxacin [From Cipro] Allergy (Verified 01/09/19 10:03) ciprofloxacin HCl [From Cipro] Allergy (Verified 01/09/19 10:03) Past Medical History - Social History Chew tobacco use (# tins/day): No Frequency of alcohol use: None Drug Abuse: None - Past Medical History Cardiac Medical History: Reports: Hx Hypercholesterolemia, Hx Hypertension, Hx Heart Murmur Endocrine Medical History: Reports: Hx Diabetes Mellitus Type 1, Hx Diabetes Mellitus Type 2 - IDDM Renal/ Medical History: Reports: Hx Ovarian Cysts. 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, Reports Hx Musculoskeletal Trauma Psychiatric Medical History: Reports: Hx Anxiety, Hx Bipolar Disorder, Hx Depression Past Surgical History: Reports: Hx Dilation and Curettage, Hx Gynecologic Surgery - Ablation, Rt ovarian cyst removed left removed, coned biopsy for cervical c, Hx Hysterectomy, Hx Tubal Ligation, Other - Told needs to have gallbladder removed because it's not functioning properl - Immunizations Immunizations up to date: Yes Hx Diphtheria, Pertussis, Tetanus Vaccination: Yes Physical Exam - Vital signs Vitals: Temp Pulse Resp BP Pulse Ox 98.3 F 60 16 105/71 96 01/09/19 10:00 01/09/19 10:00 01/09/19 10:00 01/09/19 10:00 01/09/19 10:00 Course - Vital Signs Vital signs: Temp Pulse Resp BP Pulse Ox 98.3 F 60 16 105/71 96 01/09/19 10:00 01/09/19 10:00 01/09/19 10:00 01/09/19 10:00 01/09/19 10:00
[2019-01-09] MEDS ORDERED: CEPHALEXIN 500 MG CAPSULE PO ONE (10:37)
[2019-01-09] MEDS ORDERED: SULFAMETHOXAZOLE/TRIMETHOPRIM 800-160 MG TABLET PO ONE (10:37)
[2019-01-09] MEDS ORDERED: HYDROCODONE/ACETAMINOPHEN 5-325 MG TABLET PO ONE (10:37)
--- NOTE | 2019-01-09 10:52 | ER Document Report ---
HPI - HPI Patient complains to provider of: leg abscess Time Seen by Provider: 01/09/19 10:18 Onset: Other Onset/Duration: Persistent Quality of pain: Achy Pain Level: 4 Context: Patient reports abscess to right leg for the past 2 to 3 days. Patient denies any fever. Patient does report a previous history of MRSA Associated Symptoms: denies: Fever Exacerbated by: Movement Relieved by: Denies Similar symptoms previously: Yes Recently seen / treated by doctor: No - ROS ROS below otherwise negative: Yes Systems Reviewed and Negative: Yes All other systems reviewed and negative - CONSTITUTIONAL Constitutional: DENIES: Fever, Chills - GASTROINTESTINAL Gastrointestinal: DENIES: Nausea - REPRODUCTIVE Reproductive: DENIES: : - MUSCULOSKELETAL Musculoskeletal: REPORTS: Extremity pain - DERM Notes: Abscess to right leg Past Medical History - General Information source: Patient - Social History Smoking Status: Current Every Day Smoker Chew tobacco use (# tins/day): No Frequency of alcohol use: None Drug Abuse: None Occupation: None Lives with: Family Family History: Reviewed & Not Pertinent, Arthritis, DM, Hyperlipidemia, Hypertension, Malignancy Patient has suicidal ideation: No Patient has homicidal ideation: No - Past Medical History Cardiac Medical History: Reports: Hx Hypercholesterolemia, Hx Hypertension, Hx Heart Murmur Endocrine Medical History: Reports: Hx Diabetes Mellitus Type 1, Hx Diabetes Mellitus Type 2 - IDDM Renal/ Medical History: Reports: Hx Ovarian Cysts. 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, Reports Hx Musculoskeletal Trauma Psychiatric Medical History: Reports: Hx Anxiety, Hx Depression Past Surgical History: Reports: Hx Dilation and Curettage, Hx Gynecologic Surgery - Ablation, Rt ovarian cyst removed left removed, coned biopsy for cervical c, Hx Hysterectomy, Hx Tubal Ligation, Other - Told needs to have gallbladder removed because it's not functioning properl - Immunizations Immunizations up to date: Yes Hx Diphtheria, Pertussis, Tetanus Vaccination: Yes Vertical Provider Document - CONSTITUTIONAL Agree With Documented VS: Yes Exam Limitations: No Limitations General Appearance: WD/WN, No Apparent Distress - INFECTION CONTROL TRAVEL OUTSIDE OF THE [place] IN LAST 30 DAYS: No - HEENT HEENT: Atraumatic, Normocephalic - NECK Neck: Normal Inspection - RESPIRATORY Respiratory: Breath Sounds Normal, No Respiratory Distress - CARDIOVASCULAR Cardiovascular: Regular Rate, Regular Rhythm - MUSCULOSKELETAL/EXTREMETIES Musculoskeletal/Extremeties: MAEW - NEURO Level of Consciousness: Awake, Alert, Appropriate Motor/Sensory: No Motor Deficit - DERM Integumentary: Warm, Abscess - Right medial thigh abscess with central puncture lesion, central lesion surrounded by ecchymotic area Course - Vital Signs Vital signs: Temp Pulse Resp BP Pulse Ox 98.3 F 60 16 105/71 96 01/09/19 10:00 01/09/19 10:00 01/09/19 10:00 01/09/19 10:00 01/09/19 10:00 Procedures - Incision and Drainage Right Thigh Type: Simple Anesthetic type: 1% Lidocaine I&D procedure: Betadine prep applied Incision Method: Incision made by scalpel Amount/type of drainage: Small amount of bloody purulent drainage Discharge - Discharge Clinical Impression: Abscess, Encounter for incision and drainage procedure Condition: Stable Disposition: HOME, SELF-CARE Instructions: Abscess ([facility]), Cephalexin ([facility]), Post Incision and Drainage, Trimethoprim-Sulfa ([facility]) Additional Instructions: Return immediately for any new or worsening symptoms Followup with your primary care provider, call tomorrow to make a followup appointment Culture is pending, we will call if you need any different treatment Prescriptions: Sulfamethoxazole/Trimethoprim [Bactrim Ds Tablet] 1 each PO BID #20 tablet Mupirocin [Bactroban 2% Ointment 22 gm] 1 applic TP TID #22 gm Cephalexin Monohydrate [Keflex 500 mg Capsule] 500 mg PO Q6H 5 Days capsule Forms: Smoking Cessation Education Referrals: EDINSON RAMIREZ MD [NO LOCAL MD] - Follow up tomorrow
== END 2019-01-09 10:55 | disposition home or self-care (01) ==
LOC: ER 09:56
DX: L02.415 Cutaneous abscess of right lower limb (principal); F17.200 Nicotine dependence, unspecified, uncomplicated; E78.00 Pure hypercholesterolemia, unspecified; I10 Essential (primary) hypertension; E11.9 Type 2 diabetes mellitus without complications; Z86.14 Personal history of Methicillin resistant Staphylococcus aureus infection; Z79.4 Long term (current) use of insulin; Z85.41 Personal history of malignant neoplasm of cervix uteri
CPT/HCPCS: 87070; 87077; 87186; 87205; 99283

== ENCOUNTER 2019-06-30 10:36 | Emergency (ER) | payer SELFPAY ==
--- NOTE | 2019-06-30 10:41 | ER Document Report ---
HPI - HPI Time Seen by Provider: 06/30/19 10:40 Onset: Other - This 49-year-old female presented to the emergency room today stating that her left wrist has been hurting intermittently for about 3 weeks not getting any better. She also was having frequency urgency and burning on urination. - REPRODUCTIVE Reproductive: DENIES: : Past Medical History - Social History Family History: Reviewed & Not Pertinent, Arthritis, DM, Hyperlipidemia, Hypertension, Malignancy - Past Medical History Cardiac Medical History: Reports: Hx Hypercholesterolemia, Hx Hypertension, Hx Heart Murmur Endocrine Medical History: Reports: Hx Diabetes Mellitus Type 1, Hx Diabetes Mellitus Type 2 - IDDM Renal/ Medical History: Reports: Hx Ovarian Cysts. 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 IN LAST 30 DAYS: No
--- NOTE | 2019-06-30 11:00 | ER Document Report ---
ED Medical Screen (RME) - General Chief Complaint: Wrist Pain Stated Complaint: LEFT WRIST PAIN Time Seen by Provider: 06/30/19 10:40 Information source: Patient Cannot obtain history due to: Other - This is a 49-year-old female presented to the emergency room today stating that she had left wrist pain intermittently for the last week. She also stated that she had been incontinent of urine and does not know when she is going to pain just pees on herself also that she has diabetes and her Accu-Cheks have been running over 300. TRAVEL OUTSIDE OF THE [place] IN LAST 30 DAYS: No - Related Data Allergies/Adverse Reactions: ciprofloxacin [From Cipro] Allergy (Verified 01/09/19 10:03) ciprofloxacin HCl [From Cipro] Allergy (Verified 01/09/19 10:03) Past Medical History - Social History Chew tobacco use (# tins/day): No Frequency of alcohol use: None Drug Abuse: None - Past Medical History Cardiac Medical History: Reports: Hx Hypercholesterolemia, Hx Hypertension, Hx Heart Murmur Endocrine Medical History: Reports: Hx Diabetes Mellitus Type 1, Hx Diabetes Mellitus Type 2 - IDDM Renal/ Medical History: Reports: Hx Ovarian Cysts. 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, Reports Hx Musculoskeletal Trauma Psychiatric Medical History: Reports: Hx Anxiety, Hx Bipolar Disorder, Hx Depression Past Surgical History: Reports: Hx Dilation and Curettage, Hx Gynecologic Surgery - Ablation, Rt ovarian cyst removed left removed, coned biopsy for cervical c, Hx Hysterectomy, Hx Tubal Ligation, Other - Told needs to have gallbladder removed because it's not functioning properl - Immunizations Immunizations up to date: Yes Hx Diphtheria, Pertussis, Tetanus Vaccination: Yes Physical Exam - Vital signs Vitals: Temp Pulse Resp BP Pulse Ox 98.3 F 57 L 18 133/75 H 95 06/30/19 10:48 06/30/19 10:48 06/30/19 10:48 06/30/19 10:48 06/30/19 10:48 Interpretation: Normal - General General appearance: Appears well, Alert - HEENT Head: Normocephalic, Atraumatic Eyes: Normal Pupils: PERRL - Respiratory Respiratory status: No respiratory distress Chest status: Nontender Breath sounds: Normal Chest palpation: Normal - Cardiovascular Rhythm: Regular Heart sounds: Normal auscultation Murmur: No - Abdominal Inspection: Normal Distension: No distension Bowel sounds: Normal Tenderness: Nontender Organomegaly: No organomegaly - Back Back: Normal, Nontender - Extremities General upper extremity: Normal inspection, Nontender, Normal color, Normal ROM, Normal temperature General lower extremity: Normal inspection, Nontender, Normal color, Normal ROM, Normal temperature, Normal weight bearing. No: Jorge's sign - Neurological Neuro grossly intact: Yes Cognition: Normal Orientation: AAOx4 [place] Coma Scale Eye Opening: Spontaneous [place] Coma Scale Verbal: Oriented [place] Coma Scale Motor: Obeys Commands [place] Coma Scale Total: 15 Speech: Normal Motor strength normal: LUE, RUE, LLE, RLE Sensory: Normal - Psychological Associated symptoms: Normal affect, Normal mood - Skin Skin Temperature: Warm Skin Moisture: Dry Skin Color: Normal Course - Vital Signs Vital signs: Temp Pulse Resp BP Pulse Ox 98.3 F 57 L 18 133/75 H 95 06/30/19 10:48 06/30/19 10:48 06/30/19 10:48 06/30/19 10:48 06/30/19 10:48
[2019-06-30 11:24] LABS: APPEARANCE,URINE CLEAR; BILIRUBIN,URINE NEGATIVE (NEGATIVE); COLOR,URINE YELLOW; GLUCOSE, URINE >=500 mg/dL (NEGATIVE); KETONES,URINE NEGATIVE (NEGATIVE); LEUKOCYTE ESTERASE,URINE NEGATIVE (NEGATIVE); NITRITE,URINE NEGATIVE (NEGATIVE); PROTEIN,URINE NEGATIVE (NEGATIVE); URINE SPECIFIC GRAVITY 1.025; UROBILINOGEN,URINE NEGATIVE mg/dL (<2.0)
--- NOTE | 2019-06-30 11:39 | RADIOLOGY REPORT (SQ) ---
EXAM DESCRIPTION: WRIST LEFT 3 VIEWS COMPLETED DATE/TIME: 06/30/2019 11:25 am REASON FOR STUDY: pain COMPARISON: None. NUMBER OF VIEWS: Three views. TECHNIQUE: AP, lateral, and oblique radiographic images acquired of the left wrist. LIMITATIONS: None. FINDINGS: MINERALIZATION: Normal. BONES: No acute fracture or dislocation. No worrisome bone lesions. Normal alignment. SOFT TISSUES: No soft tissue swelling. No foreign body. OTHER: No other significant finding. IMPRESSION: NEGATIVE STUDY OF THE LEFT WRIST. NO RADIOGRAPHIC EVIDENCE OF ACUTE INJURY. TECHNICAL DOCUMENTATION: JOB ID: [id number] [employer]- All Rights Reserved Reading location - IP/workstation name: [email or web address]
[2019-06-30] MEDS ORDERED: IPRATROPIUM/ALBUTEROL 0.5-2.5 MG/3 ML AMPUL NEB ONE (12:19)
[2019-06-30 12:56] LABS: ABSOLUTE EOSINOPHILS # (AUTO) 0.1 10^3/uL (0.0-0.6); ABSOLUTE LYMPHOCYTES (AUTO) 1.9 10^3/uL (0.5-4.7); ABSOLUTE MONOCYTES (AUTO) 0.2 10^3/uL (0.1-1.4); ABSOLUTE NEUT (AUTO) 2.7 10^3/uL (1.7-8.2); BASOPHILS % (AUTO) 0.9 % (0-2); EOSINOPHILS % (AUTO) 1.8 % (0-6); HEMATOCRIT 38.8 % (36.0-47.0); HEMOGLOBIN 13.6 g/dL (12.0-15.5); LYMPHOCYTES % (AUTO) 38.5 % (13-45); MEAN CORPUSCULAR HEMOGLOBIN 30.6 pg (27.0-33.4); MEAN CORPUSCULAR VOLUME 87 fl (80-97); MONOCYTES % (AUTO) 4.2 % (3-13); PLATELET COUNT 132 10^3/uL (150-450); RED BLOOD COUNT 4.45 10^6/uL (3.72-5.28); RED CELL DISTRIBUTION WIDTH 13.5 % (11.5-14.0); SEGMENTED NEUTROPHILS % (AUTO) 54.6 % (42-78); TOTAL CELLS COUNTED % (AUTO) 100 %
--- NOTE | 2019-06-30 12:59 | ER Document Report ---
Entered by HOPE SIMMONS SCRIBE 06/30/19 1214 Acting as scribe for:ZAID CHANDLER MD ED General - General Chief Complaint: Wrist Pain Stated Complaint: LEFT WRIST PAIN Time Seen by Provider: 06/30/19 10:40 Mode of Arrival: Ambulatory Information source: Patient Notes: This 49-year-old female patient presents to the emergency department today with complaints of left wrist/thumb pain for the last week. Patient denies any trauma to this area. Patient also mentions that she has had frequent urination and that her blood sugars have been running in the 200s to 400s. Patient states she does not have a primary care physician but she does buy [id number] Novolin and she has been taking it. TRAVEL OUTSIDE OF THE [place] IN LAST 30 DAYS: No - Related Data Allergies/Adverse Reactions: ciprofloxacin [From Cipro] Allergy (Verified 01/09/19 10:03) ciprofloxacin HCl [From Cipro] Allergy (Verified 01/09/19 10:03) Past Medical History - General Information source: Patient - Social History Smoking Status: Current Every Day Smoker Cigarette use (# per day): Yes Chew tobacco use (# tins/day): No Frequency of alcohol use: None Drug Abuse: None Lives with: Family Family History: Reviewed & Not Pertinent, Arthritis, DM, Hyperlipidemia, Hypertension, Malignancy Patient has suicidal ideation: No Patient has homicidal ideation: No - Past Medical History Cardiac Medical History: Reports: Hx Hypercholesterolemia, Hx Hypertension, Hx Heart Murmur Endocrine Medical History: Reports: Hx Diabetes Mellitus Type 2 - IDDM Renal/ Medical History: Reports: Hx Ovarian Cysts Malignancy Medical History: Reports: Hx Cervical Cancer GI Medical History: Reports: Hx Gastroesophageal Reflux Disease, Hx Irritable Bowel, Hx Ulcer, Hx Colonoscopy, Hx Endoscopy Musculoskeletal Medical History: Reports Hx Arthritis, Reports Hx Muscu loskeletal Deformity - Scoliosis to gentle disc 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, Reports Hx Musculoskeletal Trauma Psychiatric Medical History: Reports: Hx Anxiety, Hx Bipolar Disorder, Hx Depression Past Surgical History: Reports: Hx Dilation and Curettage, Hx Gynecologic Surgery - Ablation, Rt ovarian cyst removed left removed, coned biopsy for cervical c, Hx Hysterectomy, Hx Tubal Ligation, Other - Told needs to have gallbladder removed because it's not functioning properl - Immunizations Immunizations up to date: Yes Hx Diphtheria, Pertussis, Tetanus Vaccination: Yes Review of Systems - Review of Systems Constitutional: No symptoms reported EENT: No symptoms reported Cardiovascular: No symptoms reported Respiratory: No symptoms reported Gastrointestinal: No symptoms reported Genitourinary: See HPI, Frequency Female Genitourinary: No symptoms reported Musculoskeletal: See HPI, Other - Left thumb/wrist pain Skin: No symptoms reported Hematologic/Lymphatic: No symptoms reported Neurological/Psychological: No symptoms reported -: Yes All other systems reviewed and negative Physical Exam - Vital signs Vitals: Temp Pulse Resp BP Pulse Ox 98.3 F 57 L 18 133/75 H 95 06/30/19 10:48 06/30/19 10:48 06/30/19 10:48 06/30/19 10:48 06/30/19 10:48 - Notes Notes: Physical Exam: General: Alert, appears well. HEENT: Normocephalic. Atraumatic. PERRL. Extraocular movements intact. Oropharynx clear. Neck: Supple. Non-tender. Respiratory: No respiratory distress. Clear and equal breath sounds bilaterally. Cardiovascular: Regular rate and rhythm. Abdominal: Normal Inspection. Non-tender. No distension. Normal Bowel Sounds. Back: No gross abnormalities. Extremities: Moves all four extremities. Upper extremities: Normal inspection. Normal ROM. Lower extremities: Normal inspection. No edema. Normal ROM. Neurological: Normal cognition. AAOx4. Normal speech. Psychological: Normal affect. Normal Mood. Skin: Warm. Dry. Normal color. Course - Re-evaluation Re-evalutation: 06/30/19 14:21 The patient's hemoglobin A1c today is 10.0, she was counseled about this and the need to check her sugars more frequently and increase her insulin dosing as needed. She is encouraged to get a primary care provider to help manage her poorly controlled diabetes. She does not have insurance, but she does smoke half a pack a day. 06/30/19 14:25 Patient's wheezes have cleared up after the albuterol treatment, there is still some rhonchi with forced cough consistent with a chronic bronchitis secondary to her smoking. - Vital Signs Vital signs: Temp Pulse Resp BP Pulse Ox 98.3 F 57 L 18 133/75 H 95 06/30/19 10:48 06/30/19 10:48 06/30/19 10:48 06/30/19 10:48 06/30/19 10:48 - Laboratory Result Diagrams: 06/30/19 12:30 06/30/19 12:30 Laboratory results interpreted by me: 06/30/19 06/30/19 06/30/19 11:05 12:30 12:30 Plt Count 132 L Est GFR (MDRD) Non-Af 55 L Glucose 165 H Hemoglobin A1c % Albumin 3.4 L Urine Glucose (UA) >=500 H Urine Blood SMALL H 06/30/19 12:30 Plt Count Est GFR (MDRD) Non-Af Glucose Hemoglobin A1c % 10.0 H Albumin Urine Glucose (UA) Urine Blood Discharge - Discharge Clinical Impression: De Quervain's disease (tenosynovitis), Poorly controlled type 2 diabetes mellitus, Tobacco abuse Chronic bronchitis Qualifiers: Chronic bronchitis type: simple Qualified Code(s): J41.0 - Simple chronic bronchitis Condition: Stable Disposition: HOME, SELF-CARE Additional Instructions: De Quervain's tenosynovitis: The pain and your left thumb is due to a condition called Decore veins tenosynovitis. It is an inflammation of the ligaments running across your rad ial wrist into the thumb. The treatment for this problem is to splint the thumb in extension and let it rest. You should take ibuprofen 600 mg every 8 hours for a few days. In a few days you can switch to a commercially bought Velcro type thumb spica splint. You should follow-up with a local orthopedic surgeon if the thumb and wrist problem does not improve. Chronic bronchitis: You have wheezes and chest congestion that is due to your smoking. This is called chronic bronchitis. Use the inhaler as supplied 1 to 2 puffs every 4 hours as needed for wheezing. You should stop smoking, because your lung problems will only get worse over time if you do not. Type II Diabetes: You have poorly controlled type 2 diabetes. Uncontrolled high blood sugar leads to early heart disease, strokes, nerve damage, eye damage, and kidney damage. All diabetics should follow a diet designed to control the blood sugar. Overweight diabetics should exercise regularly and lose weight. If this is not sufficient to control the blood sugar, pills or insulin. shots are necessary. Younger people who develop diabetes almost always require insulin daily. Home testing of blood sugars or urine sugar is required. Diabetic teaching is available to help you figure insulin doses and monitor the blood sugar. Call the physician if there is faintness, excess sleepiness, or very rapid breathing. If hypoglycemia (LOW blood sugar) develops, symptoms are shakiness, weakness, sweating, and confusion. In this case, you should eat or drink something with sugar at once. Your hemoglobin A1c was 10.0 today. The ideal number is less than 6. Your diabetes is not well controlled. You should be sure to check your blood sugars frequently, and increase your insulin dosing to cover your elevated blood sugars. It is important to stop smoking, as smoking will accelerate the vascular damage that is going to be caused by your diabetes. You should follow-up with a primary care provider to help manage your diabetes. RETURN TO THE EMERGENCY ROOM IF ANY NEW OR WORSENING SYMPTOMS. I personally performed the services described in the documentation, reviewed and edited the documentation which was dictated to the scribe in my presence, and it accurately records my words and actions.
[2019-06-30 13:14] LABS: ALBUMIN 3.4 g/dL (3.5-5.0); ALKALINE PHOSPHATASE 74 U/L (38-126); ANION GAP 8 (5-19); ASPARTATE AMINO TRANSFERASE 20 U/L (14-36); BILIRUBIN,DIRECT 0.3 mg/dL (0.0-0.4); BILIRUBIN,TOTAL 0.4 mg/dL (0.2-1.3); BLOOD UREA NITROGEN 19 mg/dL (7-20); CALCIUM 8.6 mg/dL (8.4-10.2); CARBON DIOXIDE 27 mmol/L (22-30); CHLORIDE 102 mmol/L (98-107); GLUCOSE 165 mg/dL (75-110); POTASSIUM 4.1 mmol/L (3.6-5.0); TOTAL PROTEIN 6.4 g/dL (6.3-8.2)
[2019-06-30] MEDS ORDERED: ALBUTEROL SULFATE HFA (90 MCG/PUFF) 8 GM MDI (1 MDI/ER DISP) IH ONE (14:25)
[2019-06-30 14:54] VITALS: BP 132/77
== END 2019-06-30 14:47 | disposition home or self-care (01) ==
LOC: ER 10:36
DX: M65.4 Radial styloid tenosynovitis [de Quervain] (principal); J41.0 Simple chronic bronchitis; M25.532 Pain in left wrist; F17.210 Nicotine dependence, cigarettes, uncomplicated; E78.00 Pure hypercholesterolemia, unspecified; I10 Essential (primary) hypertension; E11.9 Type 2 diabetes mellitus without complications; Z88.3 Allergy status to other anti-infective agents; Z85.41 Personal history of malignant neoplasm of cervix uteri; Z90.710 Acquired absence of both cervix and uterus
CPT/HCPCS: 94640; 99283; 36415; 85025; 80053; 81001; 83036; 73110; J3490; J7620

== ENCOUNTER 2019-07-05 17:39 | Emergency (ER) | payer SELFPAY ==
--- NOTE | 2019-07-05 17:57 | ER Document Report ---
HPI - HPI Patient complains to provider of: Left ear pain Time Seen by Provider: 07/05/19 17:46 Onset: Last week Onset/Duration: Sudden, Persistent Quality of pain: Achy Context: 49-year-old female presents with left-sided ear pain for the past week. Denies trauma. Denies recent swimming. Reports she is taking [id number] pain medication without relief of symptoms. Denies fever nausea vomiting diarrhea. Denies dental pain. Reports that her sinuses have been bothering her. Associated Symptoms: None Exacerbated by: Denies Relieved by: Denies Similar symptoms previously: No Recently seen / treated by doctor: No - REPRODUCTIVE Reproductive: DENIES: : Past Medical History - General Information source: Patient - Social History Smoking Status: Unknown if Ever Smoked Lives with: Family Family History: Reviewed & Not Pertinent, Arthritis, DM, Hyperlipidemia, Hypertension, Malignancy Patient has suicidal ideation: No Patient has homicidal ideation: No - Past Medical History Cardiac Medical History: Reports: Hx Hypercholesterolemia, Hx Hypertension, Hx Heart Murmur Endocrine Medical History: Reports: Hx Diabetes Mellitus Type 1, Hx Diabetes Mellitus Type 2 - IDDM Renal/ Medical History: Reports: Hx Ovarian Cysts. 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, Reports Hx Musculoskeletal Trauma Psychiatric Medical History: Reports: Hx Anxiety, Hx Bipolar Disorder, Hx Depression Past Surgical History: Reports: Hx Dilation and Curettage, Hx Gynecologic Surgery - Ablation, Rt ovarian cyst removed left removed, coned biopsy for cervical c, Hx Hysterectomy, Hx Tubal Ligation, Other - Told needs to have gallbladder removed because it's not functioning properl - Immunizations Immunizations up to date: Yes Hx Diphtheria, Pertussis, Tetanus Vaccination: Yes Vertical Provider Document - CONSTITUTIONAL Agree With Documented VS: Yes Exam Limitations: No Limitations General Appearance: WD/WN, No Apparent Distress - INFECTION CONTROL TRAVEL OUTSIDE OF THE [place] IN LAST 30 DAYS: No - HEENT HEENT: Atraumatic, Normal ENT Exam, Normocephalic. negative: Conjuctival Injection, Pharyngeal Erythema, Tympanic Membrane Red, Tympanic Membrane Bulging - NECK Neck: Normal Inspection, Supple. negative: Lymphadenopathy-Left, Lymphadenopathy-Right - RESPIRATORY Respiratory: Breath Sounds Normal, No Respiratory Distress - CARDIOVASCULAR Cardiovascular: Regular Rate, Regular Rhythm - MUSCULOSKELETAL/EXTREMETIES Musculoskeletal/Extremeties: JUSTIN BURDEN - NEURO Level of Consciousness: Awake, Alert, Appropriate Motor/Sensory: No Motor Deficit - DERM Integumentary: Warm, Dry, No Rash - No visual rash Course - Re-evaluation Re-evalutation: 07/05/19 18:19 49-year-old female presents with complaints of left ear pain. Ear looks benign no erythema no swelling no discharge. No mastoid tenderness. Patient was instructed to monitor symptoms. Return for worsening pain follow-up with prima ry care provider or ENT for recheck. She verbalized understanding to all instructions. - Vital Signs Vital signs: Temp Pulse Resp BP Pulse Ox 98.0 F 55 L 18 120/83 97 07/05/19 17:42 07/05/19 17:42 07/05/19 17:42 07/05/19 17:42 07/05/19 17:42 Discharge - Discharge Clinical Impression: Left ear pain Condition: Stable Disposition: HOME, SELF-CARE Instructions: ENT, Use of Prpb-Zbx-[id number] Ibuprofen ([facility]) Additional Instructions: *You have been evaluated for Left ear pain *Your ear does not look infected at this time Monitor your symptoms. Monitor your temperature. Take Tylenol or Motrin as indicated *Follow up with a primary care provider or ENT within 1 week for recheck *Return to ED for worsening condition, changes, needs, concerns, increasing pain
[2019-07-05 18:02] VITALS: BP 148/78
== END 2019-07-05 18:45 | disposition home or self-care (01) ==
LOC: ER 17:39
DX: H92.02 Otalgia, left ear (principal); E78.00 Pure hypercholesterolemia, unspecified; I10 Essential (primary) hypertension; E11.9 Type 2 diabetes mellitus without complications; Z79.4 Long term (current) use of insulin
CPT/HCPCS: 99282

== ENCOUNTER 2019-07-22 12:23 | Emergency (ER) | payer SELFPAY ==
--- NOTE | 2019-07-22 12:33 | ER Document Report ---
ED Medical Screen (RME) - General Chief Complaint: Leg Swelling Stated Complaint: LEG PAIN,BACK PAIN Time Seen by Provider: 07/22/19 12:26 Mode of Arrival: Ambulatory Information source: Patient Notes: 49-year-old female patient presenting to the emergency department with multiple complaints today. She is complaining of low back pain which is chronic for her, bilateral leg pain and swelling as well as intermittent shortness of breath. She also reports she had chest pain yesterday. She denies history of CHF or DVTs/PEs. I do not appreciate any true leg swelling. Patient alert, oriented, no acute distress noted. I have greeted and performed a rapid initial assessment of this patient. A comprehensive ED assessment and evaluation of the patient, analysis of test results and completion of the medical decision making process will be conducted by additional ED providers. I have specifically instructed the patient or family members with the patient to immediately return to any nursing staff should anything change in the patient's condition or with their chief complaint. TRAVEL OUTSIDE OF THE [place] IN LAST 30 DAYS: No - Related Data Allergies/Adverse Reactions: ciprofloxacin [From Cipro] Allergy (Verified 07/22/19 12:28) ciprofloxacin HCl [From Cipro] Allergy (Verified 07/22/19 12:28) Past Medical History - Past Medical History Cardiac Medical History: Reports: Hx Hypercholesterolemia, Hx Hypertension, Hx Heart Murmur Endocrine Medical History: Reports: Hx Diabetes Mellitus Type 1, Hx Diabetes Mellitus Type 2 - IDDM Renal/ Medical History: Reports: Hx Ovarian Cysts. 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, Reports Hx Musculoskeletal Trauma Psychiatric Medical History: Reports: Hx Anxiety, Hx Bipolar Disorder, Hx Depression Past Surgical History: Reports: Hx Dilation and Curettage, Hx Gynecologic Surgery - Ablation, Rt ovarian cyst removed left removed, coned biopsy for cervical c, Hx Hysterectomy, Hx Tubal Ligation, Other - Told needs to have gallbladder removed because it's not functioning properl - Immunizations Immunizations up to date: Yes Hx Diphtheria, Pertussis, Tetanus Vaccination: Yes Physical Exam - Vital signs Vitals: Temp Pulse Resp BP Pulse Ox 98.1 F 57 L 16 116/71 98 07/22/19 12:26 07/22/19 12:26 07/22/19 12:26 07/22/19 12:26 07/22/19 12:26 Course - Vital Signs Vital signs: Temp Pulse Resp BP Pulse Ox 98.1 F 57 L 16 116/71 98 07/22/19 12:26 07/22/19 12:26 07/22/19 12:26 07/22/19 12:26 07/22/19 12:26
[2019-07-22 13:12] LABS: ALBUMIN 3.9 g/dL (3.5-5.0); ALKALINE PHOSPHATASE 100 U/L (38-126); ASPARTATE AMINO TRANSFERASE 28 U/L (14-36); BILIRUBIN,TOTAL 0.6 mg/dL (0.2-1.3); BLOOD UREA NITROGEN 18 mg/dL (7-20); CALCIUM 8.9 mg/dL (8.4-10.2); CARBON DIOXIDE 30 mmol/L (22-30); CHLORIDE 105 mmol/L (98-107); GLUCOSE 152 mg/dL (75-110); POTASSIUM 4.8 mmol/L (3.6-5.0)
[2019-07-22 13:21] LABS: ANION GAP 3 (5-19)
[2019-07-22 13:23] LABS: NT PRO BNP 546 pg/mL (<125)
[2019-07-22 13:26] LABS: TROPONIN I < 0.012 ng/mL
[2019-07-22 13:47] LABS: ABSOLUTE EOSINOPHILS # (AUTO) 0.1 10^3/uL (0.0-0.6); ABSOLUTE LYMPHOCYTES (AUTO) 1.8 10^3/uL (0.5-4.7); ABSOLUTE MONOCYTES (AUTO) 0.3 10^3/uL (0.1-1.4); ABSOLUTE NEUT (AUTO) 3.9 10^3/uL (1.7-8.2); BASOPHILS % (AUTO) 0.6 % (0-2); EOSINOPHILS % (AUTO) 1.1 % (0-6); HEMATOCRIT 40.3 % (36.0-47.0); HEMOGLOBIN 13.7 g/dL (12.0-15.5); LYMPHOCYTES % (AUTO) 29.8 % (13-45); MEAN CORPUSCULAR HEMOGLOBIN 29.6 pg (27.0-33.4); MEAN CORPUSCULAR HGB CONC 33.9 g/dL (32.0-36.0); MEAN CORPUSCULAR VOLUME 87 fl (80-97); MONOCYTES % (AUTO) 5.1 % (3-13); PLATELET COUNT 147 10^3/uL (150-450); RED BLOOD COUNT 4.62 10^6/uL (3.72-5.28); RED CELL DISTRIBUTION WIDTH 13.6 % (11.5-14.0); SEGMENTED NEUTROPHILS % (AUTO) 63.4 % (42-78); TOTAL CELLS COUNTED % (AUTO) 100 %; WHITE BLOOD COUNT 6.1 10^3/uL (4.0-10.5)
--- NOTE | 2019-07-22 14:03 | RADIOLOGY REPORT (SQ) ---
EXAM DESCRIPTION: CHEST SINGLE VIEW IMAGES COMPLETED DATE/TIME: 07/22/2019 1:44 pm REASON FOR STUDY: shortness of breath/leg swelling COMPARISON: 02/02/2017 EXAM PARAMETERS: NUMBER OF VIEWS: One view. TECHNIQUE: Single frontal radiographic view of the chest acquired. RADIATION DOSE: NA LIMITATIONS: None. FINDINGS: LUNGS AND PLEURA: No opacities, masses or pneumothorax. No pleural effusion. MEDIASTINUM AND HILAR STRUCTURES: No masses. Contour normal. HEART AND VASCULAR STRUCTURES: Heart normal in size. Normal vasculature. BONES: No acute findings. HARDWARE: None in the chest. OTHER: No other significant finding. IMPRESSION: NO ACUTE RADIOGRAPHIC FINDING IN THE CHEST. TECHNICAL DOCUMENTATION: JOB ID: [id number] 2010 [employer]- All Rights Reserved Reading location - IP/workstation name: [email or web address]
--- NOTE | 2019-07-22 14:24 | ER Document Report ---
ED General - General Chief Complaint: Leg Pain Stated Complaint: LEG PAIN,BACK PAIN Time Seen by Provider: 07/22/19 12:26 Mode of Arrival: Ambulatory TRAVEL OUTSIDE OF THE [place] IN LAST 30 DAYS: No - HPI Notes: Chief complaint: Bilateral leg swelling 49-year-old female currently with no PMD presents with complaint of bilateral leg swelling which is gotten progressively worse over the past 2 weeks. She denies chest pain or dyspnea on exertion. States that she "generally does not feel well". We note that this lady has a history of hypertension, diabetes mellitus, hyperlipidemia and also smokes in excess of 1 pack of cigarettes per day. - Related Data Allergies/Adverse Reactions: ciprofloxacin [From Cipro] Allergy (Verified 07/22/19 12:28) ciprofloxacin HCl [From Cipro] Allergy (Verified 07/22/19 12:28) Past Medical History - General Information source: Patient, [facility] Records - Social History Smoking Status: Current Every Day Smoker Frequency of alcohol use: None Drug Abuse: None Family History: Reviewed & Not Pertinent, Arthritis, DM, Hyperlipidemia, Hypertension, Malignancy Patient has suicidal ideation: No Patient has homicidal ideation: No - Past Medical History Cardiac Medical History: Reports: Hx Hypercholesterolemia, Hx Hypertension, Hx Heart Murmur Endocrine Medical History: Reports: Hx Diabetes Mellitus Type 1, Hx Diabetes Mellitus Type 2 - IDDM Renal/ Medical History: Reports: Hx Ovarian Cysts. 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, Reports Hx Musculoskeletal Trauma Psychiatric Medical History: Reports: Hx Anxiety, Hx Bipolar Disorder, Hx Depression Past Surgical History: Reports: Hx Dilation and Curettage, Hx Gynecologic S urgery - Ablation, Rt ovarian cyst removed left removed, coned biopsy for cervical c, Hx Hysterectomy, Hx Tubal Ligation, Other - Told needs to have gallbladder removed because it's not functioning properl - Immunizations Immunizations up to date: Yes Hx Diphtheria, Pertussis, Tetanus Vaccination: Yes Review of Systems - Review of Systems Notes: Constitutional: Negative for fever. HENT: Negative for sore throat. Eyes: Negative for visual changes. Cardiovascular: Negative for chest pain. Respiratory: Negative for shortness of breath. Gastrointestinal: Negative for abdominal pain, vomiting or diarrhea. Genitourinary: Negative for dysuria. Musculoskeletal: Chronic diffuse musculoskeletal pain. Skin: Negative for rash. Neurological: Negative for headaches, focal weakness or numbness. 10 point ROS negative except as marked above and in HPI. Physical Exam - Vital signs Vitals: Temp Pulse Resp BP Pulse Ox 98.1 F 57 L 16 116/71 98 07/22/19 12:26 07/22/19 12:26 07/22/19 12:07/22/19 12:07/22/19 12:26 - Notes Notes: GENERAL: Well-developed well-nourished appearing in no acute distress. SKIN: Good turgor no rashes. HEAD: Normocephalic atraumatic. EYES: PERRLA. EOMI. Conjunctivae and sclerae clear. EARS: CANALS AND TMS CLEAR. NOSE: CLEAR. MOUTH: Moist mucosa. Good dentition. No stridor or edema. No drooling. NECK: Supple. No masses or thyromegaly. No adenopathy. Carotids 2+ without bruits. No JVD. BACK: Symmetrical without tenderness. CHEST: Respirations unlabored. Breath sounds clear and symmetrical. HEART: Regular rhythm. No murmur gallop or rub. ABDOMEN: Mildly obese. Soft nontender without masses, organomegaly or rebound. Bowel sounds normally active. No bruits. GENITALIA: Deferred. EXTREMITIES: 1+ bilateral pretibial edema. No calf tenderness. Cap refill less than 1.5 seconds. Dorsalis pedis and posterior tibial pulses 3+ and symmetrical. NEUROLOGICAL: GCS 15. Alert and oriented x3. Normal gait. Fluent speech. Cranial nerves II through XII intact. Sensorimotor and cerebellar normal. Normal tone. PSYCHIATRIC: Flat affect. Course - Re-evaluation Re-evalutation: 07/22/19 14:26 BNP is elevated in the low 500s. Troponin is normal. Creatinine and liver function tests are normal. Protein and albumin are normal. Urinalysis is pending at this time as he is TSH. 07/22/19 15:44 TSH is normal. Urinalysis unremarkable. BNP was somewhat elevated and she has some peripheral edema but her lungs are clear, her EKG is normal, her troponin is normal and her chest x-ray is normal. I am going to empirically start her on low-dose hydrochlorothiazide orally and have her follow-up with primary care physician outpatient and they can arrange an echocardiogram for her and follow-up evaluation. Plan and recommendations reviewed with patient and she expresses agreement and full understanding. - Vital Signs Vital signs: Temp Pulse Resp BP Pulse Ox 98.1 F 57 L 16 116/71 98 07/22/19 12:26 07/22/19 12:26 07/22/19 12:26 07/22/19 12:26 07/22/19 12:26 - Laboratory Result Diagrams: 07/22/19 13:39 07/22/19 12:36 Laboratory results interpreted by me: 07/22/19 07/22/19 07/22/19 12:36 12:36 13:39 Plt Count 147 L Anion Gap 3 L Est GFR (MDRD) Non-Af 51 L Glucose 152 H NT-Pro-B Natriuret Pep 546 H Urine Blood Urine Urobilinogen 07/22/19 14:30 Plt Count Anion Gap Est GFR (MDRD) Non-Af Glucose NT-Pro-B Natriuret Pep Urine Blood SMALL H Urine Urobilinogen 2.0 H - Diagnostic Test Radiology reviewed: Reports reviewed - PA and lateral chest x-ray demonstrates no acute changes per radiologist. - EKG Interpretation by Me Additional EKG results interpreted by me: 07/22/19 14:24 Twelve-lead EKG from 1316 hrs. is reviewed contemporaneously by me showing and QRS axis of -24 degrees. She shows no acute ST/T wave changes and intervals are all normal. Discharge - Discharge Clinical Impression: Peripheral edema Condition: Stable Disposition: HOME, SELF-CARE Additional Instructions: Take prescribed medication. Reduce your sodium intake: Avoid cured and processed meats Avoid canned vegetables and substitute frozen and fresh vegetables Avoid use of the saltshaker at the table and do not add salt to foods while cooking Follow-up with referral physician/clinic Return here as needed for new or worsening symptoms: Pain that is worsening or unimproved Worsening swelling or shortness of breath Uncontrolled vomiting High fever or shaking chills Overall worsening Prescriptions: Hydrochlorothiazide [Hydrodiuril 25 mg Tablet] 25 mg PO QAM #30 tablet
[2019-07-22 14:51] LABS: APPEARANCE,URINE CLEAR; BILIRUBIN,URINE NEGATIVE (NEGATIVE); COLOR,URINE YELLOW; GLUCOSE, URINE NEGATIVE (NEGATIVE); KETONES,URINE NEGATIVE (NEGATIVE); PROTEIN,URINE NEGATIVE (NEGATIVE); URINE SPECIFIC GRAVITY 1.016
[2019-07-22 15:50] VITALS: BP 142/85
--- NOTE | 2019-07-23 09:08 | EKG REPORT ---
SEVERITY:- BORDERLINE ECG - SINUS RHYTHM BORDERLINE LEFT AXIS DEVIATION BORDERLINE R WAVE PROGRESSION, ANTERIOR LEADS : Confirmed by: Ni Stauffer MD 23-Jul-2019 09:07:30
== END 2019-07-22 16:06 | disposition home or self-care (01) ==
LOC: ER 12:23
DX: R60.0 Localized edema (principal); R79.89 Other specified abnormal findings of blood chemistry; G89.29 Other chronic pain; I10 Essential (primary) hypertension; E11.9 Type 2 diabetes mellitus without complications; F17.210 Nicotine dependence, cigarettes, uncomplicated; Z88.1 Allergy status to other antibiotic agents
CPT/HCPCS: 36415; 71045; 80053; 81001; 83880; 84443; 84484; 85025; 93005; 93010; 99284